=== PATIENT | female | born 1965 | race Two or more races ===

== ENCOUNTER 2020-09-13 13:02 | Outpatient (REF) | payer OTHER, SELFPAY ==
--- NOTE | ~2020-09-13 | MM_ITS ---
EXAMINATION: MM SCREENING DIGITAL MAMMOGRAPHY, BILATERAL CLINICAL INFORMATION: Screening. Asymptomatic. Unable to calculate TC score, limited information questionnaire. COMPARISON: Mammography: 04/06/2019, 03/11/2018, 02/16/2017 TECHNIQUE: Digital mammography is performed in craniocaudal and mediolateral oblique views along with computer-aided detection (CAD). Technically challenging exam requiring two soil technologist. Patient in wheelchair. Exam tailored to patient capabilities. According to staff, submitted images are best images possible. FINDINGS: There are scattered areas of fibroglandular density (ACR BI-RADS breast composition Category b). There is motion on the right MLO view. Parenchymal pattern is similar to prior studies. There is no visible developing density or mass or architectural abnormality. No abnormal calcifications. MM/MM screening mammo BI IMPRESSION: No significant changes from prior exams. Patient study limitations. ASSESSMENT: BI-RADS 2: Benign RECOMMENDATION: Routine annual mammography screening. This patient's information was entered into a reminder system with a target due date for their next mammogram.
== END 2020-09-13 13:03 | disposition home or self-care (01) ==
LOC: HO.MAMMO 13:02
PROVIDERS: PCP Internal Medicine; Visit Provider Internal Medicine
DX: Z12.31 Encounter for screening mammogram for malignant neoplasm of breast (principal)
CPT/HCPCS: 77067

== ENCOUNTER 2020-12-17 15:50 | Outpatient (REF) | payer OTHER, SELFPAY ==
--- NOTE | ~2020-12-17 | XR_ITS ---
EXAMINATION: XR FOOT, RIGHT CLINICAL INFORMATION: Unspecified injury right foot. COMPARISON: None TECHNIQUE: AP, lateral, and oblique views of the right foot. FINDINGS: There is a small avulsion fracture proximal end proximal phalanx first digit with intra-articular extension. There is mild soft tissue swelling. No additional fracture visualized. The ankle mortise and subtalar joints are normal. XR/XR foot RT 2V IMPRESSION: Small avulsion fracture proximal end proximal phalanx first digit with intraorbital extension and mild soft tissue swelling.
== END 2020-12-17 15:51 | disposition home or self-care (01) ==
LOC: HO.XRAY 15:50
PROVIDERS: PCP Internal Medicine; Visit Provider Physician Assistant
DX: S99.921A Unspecified injury of right foot, initial encounter (principal); W01.0XXA Fall on same level from slipping, tripping and stumbling without subsequent striking against object, initial encounter; Y93.9 Activity, unspecified; Y92.9 Unspecified place or not applicable; Y99.9 Unspecified external cause status
CPT/HCPCS: 73620

== ENCOUNTER 2020-12-25 06:54 | Outpatient (REF) | payer OTHER, SELFPAY ==
[2020-12-25 08:24] LABS: MANUAL DIFF FLAG NO
[2020-12-25 08:44] LABS: Creatinine Urine 83.84 mg/dL; Microalbum/Creatinine Ratio Ur 5.9 ug/mg cr
[2020-12-25 08:47] LABS: Basophils Percent Auto 0.5 % (0-2); Eosinophils Absolute Auto 0.2 X10*3/uL (0.0-0.4); Eosinophils Percent Auto 2.9 % (0-4); Hematocrit 36.6 % (37-47); Hemoglobin 11.8 g/dl (12.0-16.0); Imm Gran Abs Auto 0.01 X10*3/uL (0.00-0.03); Imm Gran Pct Auto 0.2 % (0.0-0.4); Lymphocytes Absolute Auto 1.5 X10*3/uL (1.2-4.9); Lymphocytes Percent Auto 27.2 % (20-40); Mean Corpuscular HGB Conc 32.2 g/dl (31.0-35.0); Mean Corpuscular Hemoglobin 28.5 pg (27.0-33.0); Mean Corpuscular Volume 88.4 fL (80-98); Mean Platelet Volume 8.9 fL (9.4-12.3); Monocytes Absolute Auto 0.3 X10*3/uL (0.1-1.2); Monocytes Percent Auto 5.7 % (2-11); Neutrophils Absolute Auto 3.6 X10*3/uL (2.0-8.3); Neutrophils Percent Auto 63.5 % (45-73); Platelet Count 350 X10*3/uL (160-400); Red Blood Count 4.14 X10*6/uL (4.20-5.50); White Blood Count 5.6 X10*3/uL (4.8-10.8)
[2020-12-25 09:00] LABS: Alanine Aminotransferase 14 U/L (0-31); Albumin Level 3.9 g/dL (3.5-5.0); Alkaline Phosphatase 57 U/L (39-117); Anion Gap 13 (12-20); Aspartate Amino Transferase 12 U/L (5-31); Bilirubin Total 0.5 mg/dL (0.0-1.0); Blood Urea Nitrogen 13 mg/dL (9-16); Calcium 8.8 mg/dL (8.4-10.2); Carbon Dioxide 26 mmol/L (22-29); Chloride 106 mmol/L (96-108); Cholesterol 152 mg/dL; Estimated Glomerular Filt Rate > 60; Glucose Random 134 mg/dL (60-115); HDL Cholesterol 48 mg/dL; LDL Cholesterol Calculated 86 mg/dl; Potassium 3.9 mmol/L (3.3-5.1); Sodium 141 mmol/L (135-145); Total Protein 6.6 g/dL (6.5-8.0); Triglycerides 94 mg/dL
[2020-12-25 09:06] LABS: Free T4 (Free Thyroxine) 0.99 ng/dL (0.71-1.85); Thyroid Stimulating Hormone 0.58 uIU/mL (0.32-4.0); Vitamin D 25-OH Total 38.6 ng/mL (>30)
[2020-12-25 09:33] LABS: Folate 19.2 ng/mL (> or = 4.0); Vitamin B12 1069 pg/mL (200-900)
[2020-12-25 10:29] LABS: Estimated Average Glucose 151 mg/dL; Hemoglobin A1c % 6.9 %
== END 2020-12-25 06:55 | disposition home or self-care (01) ==
LOC: HO.LAB 06:54
PROVIDERS: PCP Internal Medicine; Visit Provider Internal Medicine
DX: E11.65 Type 2 diabetes mellitus with hyperglycemia (principal); E78.00 Pure hypercholesterolemia, unspecified; I10 Essential (primary) hypertension
CPT/HCPCS: 36415; 80053; 80061; 82043; 82306; 82607; 82746; 83036; 84439; 84443; 85025

== ENCOUNTER → 2021-01-07 14:55 | Outpatient (BNVA) | payer OTHER, SELFPAY | PROVIDERS: PCP Internal Medicine; Visit Provider Physician Assistant | DX: S92.403A Displaced unspecified fracture of unspecified great toe, initial encounter for closed fracture (principal) | CPT/HCPCS: 99202 ==

== ENCOUNTER 2021-01-31 07:09 | Outpatient (REF) | payer OTHER, SELFPAY ==
[2021-01-31 07:42] LABS: MANUAL DIFF FLAG NO
[2021-01-31 07:44] LABS: Basophils Percent Auto 0.5 % (0-2); Eosinophils Absolute Auto 0.1 X10*3/uL (0.0-0.4); Eosinophils Percent Auto 2.1 % (0-4); Hematocrit 36.3 % (37-47); Hemoglobin 11.5 g/dl (12.0-16.0); Imm Gran Abs Auto 0.01 X10*3/uL (0.00-0.03); Imm Gran Pct Auto 0.2 % (0.0-0.4); Immature Retic Fraction 10.4 % (3.0-15.9); Lymphocytes Absolute Auto 1.5 X10*3/uL (1.2-4.9); Lymphocytes Percent Auto 26.4 % (20-40); Mean Corpuscular HGB Conc 31.7 g/dl (31.0-35.0); Mean Corpuscular Hemoglobin 28.3 pg (27.0-33.0); Mean Corpuscular Volume 89.2 fL (80-98); Mean Platelet Volume 9.4 fL (9.4-12.3); Monocytes Absolute Auto 0.3 X10*3/uL (0.1-1.2); Monocytes Percent Auto 5.2 % (2-11); Neutrophils Absolute Auto 3.8 X10*3/uL (2.0-8.3); Neutrophils Percent Auto 65.6 % (45-73); Platelet Count 303 X10*3/uL (160-400); Red Blood Count 4.07 X10*6/uL (4.20-5.50); Red Cell Distribution Width 14.3 % (11.0-16.0); Retic HGB Equivalent 32.2 pg (30.0-35.0); Reticulocyte Percent 1.3 % (0.5-1.8); Reticulocytes Absolute 0.051 X10*6/uL (0.026-0.095); White Blood Count 5.8 X10*3/uL (4.8-10.8)
[2021-01-31 08:09] LABS: Iron 65 mcg/dL (30-160); Percent Iron Saturation 24 % (15-50); Total Iron Binding Capacity 273 mcg/dL (228-428); Unsaturated Iron Binding 208 ug/dL
[2021-01-31 08:34] LABS: Ferritin 56 ng/mL (10-250)
== END 2021-01-31 07:10 | disposition home or self-care (01) ==
LOC: HO.LAB 07:09
PROVIDERS: PCP Internal Medicine; Visit Provider Internal Medicine
DX: D64.9 Anemia, unspecified (principal)
CPT/HCPCS: 36415; 82728; 83540; 85025; 85045

== ENCOUNTER 2021-02-06 07:34 | Outpatient (REF) | payer OTHER, SELFPAY ==
[2021-02-06 16:01] LABS: Creatinine Urine 28.18 mg/dL
== END 2021-02-06 07:35 | disposition home or self-care (01) ==
LOC: HO.LAB 07:34
PROVIDERS: PCP Internal Medicine; Visit Provider Internal Medicine
DX: E11.65 Type 2 diabetes mellitus with hyperglycemia (principal)
CPT/HCPCS: 87086

== ENCOUNTER → 2021-06-10 08:50 | Outpatient (BNVA) | payer OTHER, SELFPAY | PROVIDERS: PCP Internal Medicine; Visit Provider Advanced Practice Midwife ==

== ENCOUNTER 2021-09-16 08:03 | Outpatient (REF) | payer OTHER, SELFPAY ==
--- NOTE | ~2021-09-16 | MM_ITS ---
EXAMINATION: MM SCREENING DIGITAL BREAST TOMOSYNTHESIS, BILATERAL CLINICAL INFORMATION: Screening. Asymptomatic. COMPARISON: Mammography: 09/13/2020, 04/06/2019, 03/11/2018 TECHNIQUE: Digital breast tomosynthesis is performed in both the craniocaudal and mediolateral oblique views along with computer-aided detection (CAD). Synthesized 2D images are generated from the tomosynthesis. Additional right MLO view is provided. Exam is technically challenging requiring 2 mammography technologists for positioning. Patient in wheelchair. Exam tailored to patient capabilities. FINDINGS: There are scattered areas of fibroglandular density (ACR BI-RADS breast composition Category b). There are no significant masses, abnormal calcifications, or other abnormalities. There are no significant changes from prior studies. MM/MM tomosynthesis screening BI IMPRESSION: No significant changes from prior studies. Patient study limitations. ASSESSMENT: BI-RADS 2: Benign RECOMMENDATION: Routine annual mammography screening. This patient's information was entered into a reminder system with a target due date for their next mammogram.
== END 2021-09-16 08:04 | disposition home or self-care (01) ==
LOC: HO.MAMMO 08:03
PROVIDERS: PCP Internal Medicine; Visit Provider Internal Medicine
DX: Z12.31 Encounter for screening mammogram for malignant neoplasm of breast (principal)
CPT/HCPCS: 77063; 77067

== ENCOUNTER 2022-01-24 07:16 | Outpatient (REF) | payer OTHER, SELFPAY ==
[2022-01-24 07:26] LABS: MANUAL DIFF FLAG NO
[2022-01-24 08:03] LABS: Basophils Absolute Auto 0.1 X10*3/uL (0.0-0.2); Basophils Percent Auto 0.8 % (0-2); Eosinophils Absolute Auto 0.1 X10*3/uL (0.0-0.4); Eosinophils Percent Auto 1.9 % (0-4); Hematocrit 37.5 % (37.0-47.0); Hemoglobin 12.1 g/dl (12.0-16.0); Imm Gran Abs Auto 0.01 X10*3/uL (0.00-0.03); Imm Gran Pct Auto 0.2 % (0.0-0.4); Immature Retic Fraction 10.6 % (3.0-15.9); Lymphocytes Absolute Auto 1.8 X10*3/uL (1.2-4.9); Lymphocytes Percent Auto 28.2 % (20-40); Mean Corpuscular HGB Conc 32.3 g/dl (31.0-35.0); Mean Corpuscular Hemoglobin 28.5 pg (27.0-33.0); Mean Corpuscular Volume 88.4 fL (80.0-98.0); Monocytes Absolute Auto 0.4 X10*3/uL (0.1-1.2); Monocytes Percent Auto 6.4 % (2-11); Neutrophils Percent Auto 62.5 % (45-73); Platelet Count 321 X10*3/uL (160-400); Red Blood Count 4.24 X10*6/uL (4.20-5.50); Retic HGB Equivalent 32.8 pg (30.0-35.0); White Blood Count 6.4 X10*3/uL (4.8-10.8)
[2022-01-24 08:05] LABS: Estimated Average Glucose 137 mg/dL; Hemoglobin A1c % 6.4 %
[2022-01-24 08:26] LABS: Alanine Aminotransferase 10 U/L (0-31); Albumin Level 4.2 g/dL (3.5-5.0); Alkaline Phosphatase 65 U/L (39-117); Anion Gap 12 (12-20); Aspartate Amino Transferase 11 U/L (5-31); Bilirubin Total 0.4 mg/dL (0.0-1.0); Blood Urea Nitrogen 16 mg/dL (9-16); Calcium 9.1 mg/dL (8.4-10.2); Carbon Dioxide 26 mmol/L (22-29); Chloride 105 mmol/L (96-108); Cholesterol 172 mg/dL; Estimated Glomerular Filt Rate > 60; Glucose Random 130 mg/dL (60-115); HDL Cholesterol 51 mg/dL; Iron 64 mcg/dL (30-160); LDL Cholesterol Calculated 107 mg/dl; Percent Iron Saturation 23 % (15-50); Potassium 4.2 mmol/L (3.3-5.1); Sodium 139 mmol/L (135-145); Total Iron Binding Capacity 276 mcg/dL (228-428); Triglycerides 71 mg/dL; Unsaturated Iron Binding 212 ug/dL
[2022-01-24 08:48] LABS: Ferritin 63 ng/mL (10-250); Free T4 (Free Thyroxine) 0.96 ng/dL (0.71-1.85); Thyroid Stimulating Hormone 0.46 uIU/mL (0.32-4.0); Vitamin D 25-OH Total 42.3 ng/mL (>30)
[2022-01-24 09:06] LABS: Folate > 20.0 ng/mL (> or = 4.0); Vitamin B12 952 pg/mL (200-900)
[2022-01-24 09:39] LABS: Creatinine Urine 137.81 mg/dL; Microalbum/Creatinine Ratio Ur 4.3 ug/mg cr
== END 2022-01-24 07:17 | disposition home or self-care (01) ==
LOC: HO.LAB 07:16
PROVIDERS: PCP Internal Medicine; Visit Provider Internal Medicine
DX: E78.00 Pure hypercholesterolemia, unspecified (principal); I10 Essential (primary) hypertension; D64.9 Anemia, unspecified; E11.65 Type 2 diabetes mellitus with hyperglycemia
CPT/HCPCS: 36415; 80053; 80061; 82043; 82306; 82607; 82728; 82746; 83036; 83540; 84439; 84443; 85025; 85045

== ENCOUNTER 2022-09-18 10:34 | Outpatient (REF) | payer OTHER, SELFPAY ==
--- NOTE | ~2022-09-18 | MM_ITS ---
EXAMINATION: MM SCREENING DIGITAL BREAST TOMOSYNTHESIS, BILATERAL CLINICAL INFORMATION: Screening. Asymptomatic. COMPARISON: Mammography: 09/16/2021, 09/13/2020, 04/06/2019 TECHNIQUE: Digital breast tomosynthesis is performed in both the craniocaudal and mediolateral oblique views along with computer-aided detection (CAD). Synthesized 2D images are generated from the tomosynthesis. Additional left MLO view obtained. Technologist notes technically challenging exam, patient in wheelchair. 2 technologists for optimizing positioning and tailoring to patient capabilities. FINDINGS: There are scattered areas of fibroglandular density (ACR BI-RADS breast composition Category b). There are technical challenges in positioning, particularly on the left similar to prior exam. The submitted images show no significant masses, abnormal calcifications, or other abnormalities. No developing density or architectural abnormality or significant changes. MM/MM tomosynthesis screening BI IMPRESSION: -No mammographic evidence of malignancy. -Patient study limitations. ASSESSMENT: BI-RADS 2: Benign RECOMMENDATION: Routine annual mammography screening. This patient's information was entered into a reminder system with a target due date for their next mammogram.
== END 2022-09-18 10:35 | disposition home or self-care (01) ==
LOC: HO.MAMMO 10:34
PROVIDERS: PCP Internal Medicine; Visit Provider Internal Medicine
DX: Z12.31 Encounter for screening mammogram for malignant neoplasm of breast (principal)
CPT/HCPCS: 77063; 77067

== ENCOUNTER 2022-09-29 07:06 | Outpatient (REF) | payer OTHER, SELFPAY ==
[2022-09-29 07:27] LABS: MANUAL DIFF FLAG NO
[2022-09-29 07:47] LABS: Basophils Percent Auto 0.7 % (0-2); Eosinophils Absolute Auto 0.1 X10*3/uL (0.0-0.4); Eosinophils Percent Auto 1.9 % (0-4); Hematocrit 37.8 % (37.0-47.0); Imm Gran Abs Auto 0.01 X10*3/uL (0.00-0.03); Imm Gran Pct Auto 0.2 % (0.0-0.4); Lymphocytes Absolute Auto 1.6 X10*3/uL (1.2-4.9); Lymphocytes Percent Auto 28.5 % (20-40); Mean Corpuscular HGB Conc 31.7 g/dl (31.0-35.0); Mean Corpuscular Volume 88.1 fL (80.0-98.0); Mean Platelet Volume 8.8 fL (9.4-12.3); Monocytes Absolute Auto 0.3 X10*3/uL (0.1-1.2); Monocytes Percent Auto 5.1 % (2-11); Neutrophils Absolute Auto 3.6 x10*3/uL (2.0-8.3); Neutrophils Percent Auto 63.6 % (45-73); Platelet Count 322 X10*3/uL (160-400); Red Blood Count 4.29 X10*6/uL (4.20-5.50); Red Cell Distribution Width 13.5 % (11.0-16.0); White Blood Count 5.7 X10*3/uL (4.8-10.8)
[2022-09-29 07:56] LABS: Estimated Average Glucose 140 mg/dL; Hemoglobin A1C 150.9614 umol/L; Hemoglobin A1c % 6.5 %
[2022-09-29 08:13] LABS: Creatinine Urine 95.65 mg/dL
[2022-09-29 08:30] LABS: Alanine Aminotransferase 11 U/L (0-31); Alkaline Phosphatase 60 U/L (39-117); Anion Gap 12 (12-20); Aspartate Amino Transferase 12 U/L (5-31); Bilirubin Total 0.4 mg/dL (0.0-1.0); Blood Urea Nitrogen 14 mg/dL (9-16); Calcium 9.1 mg/dL (8.4-10.2); Carbon Dioxide 29 mmol/L (22-29); Chloride 106 mmol/L (96-108); Cholesterol 170 mg/dL; Estimated Glomerular Filt Rate > 60; Glucose Random 122 mg/dL (60-115); HDL Cholesterol 47 mg/dL; LDL Cholesterol Calculated 108 mg/dl; Potassium 4.1 mmol/L (3.3-5.1); Sodium 143 mmol/L (135-145); Total Protein 6.7 g/dL (6.5-8.0); Triglycerides 79 mg/dL
[2022-09-29 08:50] LABS: Folate 16.7 ng/mL (> or = 4.0); Free T4 (Free Thyroxine) 0.99 ng/dL (0.71-1.85); Thyroid Stimulating Hormone 0.92 uIU/mL (0.32-4.0); Vitamin B12 793 pg/mL (200-900); Vitamin D 25-OH Total 46.3 ng/mL (>30)
== END 2022-09-29 07:07 | disposition home or self-care (01) ==
LOC: HO.LAB 07:06
PROVIDERS: PCP Internal Medicine; Visit Provider Internal Medicine
DX: E11.65 Type 2 diabetes mellitus with hyperglycemia (principal); E78.00 Pure hypercholesterolemia, unspecified; E55.9 Vitamin D deficiency, unspecified; S92.403A Displaced unspecified fracture of unspecified great toe, initial encounter for closed fracture; X58.XXXA Exposure to other specified factors, initial encounter; Y93.9 Activity, unspecified; Y92.9 Unspecified place or not applicable; Y99.9 Unspecified external cause status
CPT/HCPCS: 36415; 80053; 80061; 82306; 82607; 82746; 83036; 84439; 84443; 85025

== ENCOUNTER 2023-02-05 07:24 | Outpatient (REF) | payer OTHER, SELFPAY | END 2023-02-05 07:25 | disposition home or self-care (01) | LOC: HO.LAB 07:24 | PROVIDERS: PCP Internal Medicine; Visit Provider Internal Medicine | DX: E78.00 Pure hypercholesterolemia, unspecified (principal); E11.65 Type 2 diabetes mellitus with hyperglycemia | CPT/HCPCS: 36415; 80053; 80061; 83036 ==

== ENCOUNTER 2023-02-10 11:00 | Outpatient (AMB) | payer OTHER, SELFPAY ==
[2023-02-10 11:02] VITALS: BP 110/68; PULSE 98; O2SAT 98; BMI 29.8
--- NOTE | 2023-02-10 11:02 | MHC.PC.OV ---
Vital Signs 02/10/23 11:02 Height 4 ft 3 in Weight 110 lb 3.698 oz BMI 29.8 BP 110/68 Blood Pressure Location Lt brachial Position Sitting Pulse 98 Pulse Source Pulse Oximeter Temp Source Skin Pulse Oximetry (%) 98 Oxygen Delivery Method Room Air Intake Visit Reasons: Hypercholesterolemia, diabetes mellitus Grounds Manager Required: No Allergies No Known Allergies Allergy (Verified 02/10/23 11:11) Medication List - Last Reconciled 02/10/23 by JACKIE Zamudio amoxicillin 2,000 mg PO 1 hour before procedure; blood sugar diagnostic (FreeStyle Lite Strips) As directed TID for blood glucose testing blood-glucose meter (FreeStyle Lite Meter kit) As directed cholecalciferol (vitamin D3) 25 mcg PO DAILY compress.stocking,knee,reg,med As directed 20-30 mm HG cyanocobalamin (vitamin B-12) 1,000 mcg PO DAILY fluconazole (Diflucan) 150 mg PO ONCE 1 day folic acid 1 mg PO DAILY ketoconazole 2% 1 appl topical BID lancets (FreeStyle Lancets) 28 gauge topical TID 90 days lisinopril 10 mg PO DAILY metformin 500 mg PO DAILY miconazole nitrate 2% (Zeasorb AF) 1 appl topical BID simvastatin 40 mg PO DAILY Tobacco use date assessed: 02/10/23 HPI Hypercholesterolemia, diabetes mellitus HPI Details Patient is a 57-year-old female presents today to follow-up on her chronic conditions. Patient of Dr. Salazar. Medical history significant for diabetes type 2, hypertension, hypercholesterolemia, cerebral palsy. Patient reports eye exam couple months ago. She reports blood sugar this morning 133. Patient denies concerns at this visit. She is compliant with medications. Patient denies shortness of breath or chest pain. Recent blood work results reviewed with the patient. [facility] Medical History Annual physical exam Avulsion fracture of metatarsal bone of left foot with routine healing Cerebral palsy Colon cancer screening Encounter for annual routine gynecological examination Hypercholesterolemia Hypertension Impacted cerumen of both ears Injury of right great toe Peripheral vascular disease Rosacea Type 2 diabetes mellitus with hyperglycemia Vitamin D deficiency Surgical History History of brain shunt Family History Father Medical history unknown Mother Brain cancer Diabetes Hypertension Paternal Uncle Cancer Social History Housing: House Alcohol intake: never Patient Tobacco Use Status: Never used Tobacco e-Cigarette/Vaping Use: Never Used Second Hand Smoke Exposure: No Current occupational status: disabled Cognitive needs: No Hearing needs: No Vision needs: No Questionnaire Thrive Questionnaire Date Thrive assessed: 10/24/22 AUDIT C Alcohol Use Questionnaire (AUDIT-C) 1. How often do you have a drink containing alcohol?: Never 3. How often do you have six or more drinks on one occasion?: Never Total Score: 0 Score Reviewed/Action Taken: No MATEO-7 AMB Questionnaire MATEO-7 Date MATEO - 7 assessed: 10/24/22 Source: Developed by Drs. Jori Elias, Juani Noriega, Jagdish Cardenas and colleagues, with an educational rand from [employer]. Review of Systems Const Denies body aches, Denies chills, Denies fever(s) and Denies headache(s) Eyes Denies change in vision ENT Denies dizziness, Denies otalgia, Denies headache(s), Denies nasal discharge, Denies sinus pain and Denies sore throat Card Denies chest pain, Denies edema, Denies lightheadedness and Denies dyspnea Resp Denies cough and Denies dyspnea GI Denies constipation, Denies diarrhea, Denies nausea and Denies vomiting Denies dysuria Musc Denies myalgias Skin/Breast Denies rash Neuro Denies dizziness and Denies headache(s) Physical exam (Primary Care) Vital Signs: Last Vital Signs Pulse 98 02/10/23 11:02 BP 110/68 02/10/23 11:02 Pulse Ox 98 02/10/23 11:02 Oxygen Delivery Method Room Air 02/10/23 11:02 BMI result Body Mass Index 29.8 Tobacco/Smoking Status: Tobacco use Status Tobacco use date assessed 02/10/23 02/10/23 11:03 Patient Tobacco Use Status Never used Tobacco 02/10/23 11:03 e-Cigarette/Vaping Use Never Used 02/10/23 11:03 Thrive Assessment: Date of Thrive Assessment Date Thrive assessed 10/24/22 02/10/23 11:03 Const General: cooperative and no acute distress Orientation/consciousness: patient oriented x3 HENMT Head: Yes normocephalic and Yes atraumatic Mouth: oropharynx normal and moist mucous membranes Throat: Yes posterior oropharynx normal Eyes General: appearance normal, both eyes and all related structures Pupils: Equal, round and reactive pupils present EOM: EOMs intact bilaterally Neck Neck: Yes normal visual inspection and Yes full ROM Resp Effort & Inspection: normal respiratory effort and able to speak in complete sentences Auscultation: clear to auscultation bilaterally, no crackles, no rales, no rhonchi and no wheezes Cardio Rate: regular rate Rhythm: regular rhythm Heart sounds: S1 normal heart sound present and S2 normal heart sound present GI Auscultation: normal bowel sounds Skin General skin exam: no rashes or lesions noted Neuro General: patient oriented x3 Cranial nerves: Yes Equal, round and reactive pupils present Extrem Other: Left arm contracture - has cerebral palsy General: No edema Assessment and Plan Assessment & Plan (1) Hypercholesterolemia: Code(s): E78.00 - Pure hypercholesterolemia, unspecified Plan: LDL 82 01/2023 Continue simvastatin Low-cholesterol diet (2) Hypertension: Code(s): I10 - Essential (primary) hypertension Qualifiers: Hypertension type: essential hypertension Qualified Code(s): I10 - Essential (primary) hypertension Plan: Goal BP equal or less than 140/90 Continue lisinopril Low-sodium diet (3) Type 2 diabetes mellitus with hyperglycemia: Comment: Dr. Romero Code(s): E11.65 - Type 2 diabetes mellitus with hyperglycemia Qualifiers: Diabetes mellitus roving technician insulin use: without roving technician use Qualified Code(s): E11.65 - Type 2 diabetes mellitus with hyperglycemia Plan: A1c 6.3 01/2023 Continue metformin Low-carbohydrate diet Plan Keep appointment with PCP as scheduled or follow-up sooner as needed Coding Level of Care Code Est Pt Level 4 (31038) Diagnoses Hypercholesterolemia E78.00 Hypertension I10 Hypertension type: essential hypertension Type 2 diabetes mellitus with hyperglycemia E11.65 Diabetes mellitus roving technician insulin use: without roving technician use
== END 2023-02-10 11:36 | disposition home or self-care (01) ==
PROVIDERS: PCP Internal Medicine; Visit Provider Nurse Practitioner Family
DX: E78.00 Pure hypercholesterolemia, unspecified (principal); I10 Essential (primary) hypertension; E11.65 Type 2 diabetes mellitus with hyperglycemia
CPT/HCPCS: 99214

== ENCOUNTER 2023-05-22 15:15 | Outpatient (AMB) | payer OTHER, SELFPAY ==
--- NOTE | 2023-05-22 15:19 | A.OFFPC_ITS ---
Vital Signs 05/22/23 15:20 Height 4 ft 3 in Weight 105 lb 13.15 oz BMI 28.6 BP 118/72 Blood Pressure Location Lt brachial Position Sitting Pulse 80 Pulse Source Pulse Oximeter Pulse Oximetry (%) 100 Oxygen Delivery Method Room Air Intake Visit Reasons: Rash under breast area Intake Note: pt states [facility] rash under breast area and back Pinion Polisher Required: No Allergies No Known Allergies Allergy (Verified 05/22/23 15:29) Medication List - Last Reconciled 05/22/23 by JACKIE Zamudio amoxicillin 2,000 mg PO 1 hour before procedure; blood sugar diagnostic (FreeStyle Lite Strips) As directed TID for blood glucose testing blood-glucose meter (FreeStyle Lite Meter kit) As directed cholecalciferol (vitamin D3) 25 mcg PO DAILY compress.stocking,knee,reg,med As directed 20-30 mm HG cyanocobalamin (vitamin B-12) 1,000 mcg PO DAILY fluconazole (Diflucan) 150 mg PO ONCE 1 day folic acid 1 mg PO DAILY ketoconazole 2% 1 appl topical BID lancets (FreeStyle Lancets) 28 gauge topical TID 90 days lisinopril 10 mg PO DAILY metformin 500 mg PO DAILY miconazole nitrate 2% (Zeasorb AF) 1 appl topical BID simvastatin 40 mg PO DAILY Tobacco use date assessed: 05/22/23 Dental Screening Dental Screen Date: 05/22/23 Did you have a dental visit in the last 12 months?: Yes Did you have a dental problem in the last 6 months where you did not have access to dental care?: No Was dental information given to patient?: Patient has dentist HPI Rash under breast area HPI Details Patient is a 57-year-old female who presents today for an office visit due to rash under her breasts and between buttocks for long time which is intermittent. Patient of Dr. Salazar. Medical history significant for diabetes type 2, hypercholesterolemia, cerebral palsy among others. Patient reports that rash is itchy intermittently. She has been using ketoconazole cream with no improvement. Also she has been using nystatin powder which was given by family, they have been mixing nystatin powder with ketoconazole cream with no much improvement- would like prescription for nystatin powder. [facility] Medical History Impacted cerumen of both ears Annual physical exam Encounter for annual routine gynecological examination Colon cancer screening Avulsion fracture of metatarsal bone of left foot with routine healing Injury of right great toe Cerebral palsy Hypercholesterolemia Rosacea Hypertension Vitamin D deficiency Peripheral vascular disease Type 2 diabetes mellitus with hyperglycemia Surgical History History of brain shunt Family History Father Medical history unknown Mother Brain cancer Diabetes Hypertension Paternal Uncle Cancer Social History Housing: House Alcohol intake: never Patient Tobacco Use Status: Never used Tobacco e-Cigarette/Vaping Use: Never Used Second Hand Smoke Exposure: No Current occupational status: disabled Cognitive needs: No Hearing needs: No Vision needs: No Questionnaire Thrive Questionnaire Date Thrive assessed: 10/24/22 AUDIT C Alcohol Use Questionnaire (AUDIT-C) 1. How often do you have a drink containing alcohol?: Never 3. How often do you have six or more drinks on one occasion?: Never Total Score: 0 Score Reviewed/Action Taken: No MATEO-7 AMB Questionnaire MATEO-7 Date MATEO - 7 assessed: 10/24/22 Source: Developed by Drs. Jori Elias, Juani Noriega, Jagdish Cardenas and colleagues, with an educational rand from [employer]. Review of Systems Const Denies body aches, Denies chills, Denies fever(s) and Denies headache(s) ENT Denies dizziness, Denies otalgia, Denies headache(s), Denies nasal discharge, Denies sinus pain and Denies sore throat Card Denies chest pain, Denies edema, Denies lightheadedness and Denies dyspnea Resp Denies cough, Denies dyspnea and Denies wheezing GI Denies abdominal pain and Denies vomiting Denies dysuria Musc Denies myalgias Skin/Breast Reports rash Neuro Denies dizziness and Denies headache(s) Aller/Immun Denies wheezing Physical exam (Primary Care) Vital Signs: Last Vital Signs Pulse 80 05/22/23 15:20 BP 118/72 05/22/23 15:20 Pulse Ox 100 05/22/23 15:20 Oxygen Delivery Method Room Air 10/20/23 15:20 BMI result Body Mass Index 28.6 Tobacco/Smoking Status: Tobacco use Status Tobacco use date assessed 05/22/23 05/22/23 15:21 Patient Tobacco Use Status Never used Tobacco 05/22/23 15:20 e-Cigarette/Vaping Use Never Used 05/22/23 15:20 Thrive Assessment: Date of Thrive Assessment Date Thrive assessed 10/24/22 05/22/23 15:20 Const General: cooperative and no acute distress Orientation/consciousness: patient oriented x3 HENMT Head: Yes normocephalic and Yes atraumatic Throat: Yes posterior oropharynx normal Eyes General: appearance normal, both eyes and all related structures Neck Neck: Yes normal visual inspection and Yes full ROM Resp Effort & Inspection: normal respiratory effort and able to speak in complete sentences Auscultation: clear to auscultation bilaterally, no crackles, no rales, no rhonchi and no wheezes Cardio Rate: regular rate Rhythm: regular rhythm Heart sounds: S1 normal heart sound present and S2 normal heart sound present GI Auscultation: normal bowel sounds Skin Other: Mild erythema and moisture noted under bilateral breasts, no open areas Bilateral medial buttocks with mild erythema, no open areas Neuro General: patient oriented x3 Extrem General: Yes full ROM and No edema Assessment and Plan Assessment & Plan (1) Rash: Code(s): R21 - Rash and other nonspecific skin eruption Plan: Mild erythema and moisture noted under bilateral breasts, no open areas Bilateral medial buttocks with mild erythema, no open areas Suspect fungal rash Will treat with nystatin powder t.i.d. p.r.n., do not use ketoconazole cream, keep areas clean and dry Notify office if no improvement in couple weeks Patient agreed with the plan Medications: New nystatin (Nystop) 1 appl topical TID PRN 60 grams 1RF rash R21 - Rash and other nonspecific skin eruption Discontinued miconazole nitrate 2% (Zeasorb AF) Discontinued Reason: Doctor's Order 1 appl topical BID 85 grams 2RF B35.6 - Tinea cruris fluconazole (Diflucan) Discontinued Reason: Doctor's Order 150 mg PO ONCE 1 day 1 tab 0RF N89.8 - Other specified noninflammatory disorders of vagina Coding Level of Care Code Est Pt Level 3 (92266) Diagnoses Rash R21
[2023-05-22 15:20] VITALS: BP 118/72; PULSE 80; O2SAT 100; BMI 28.6
== END 2023-05-22 15:58 | disposition home or self-care (01) ==
PROVIDERS: PCP Internal Medicine; Visit Provider Nurse Practitioner Family
DX: R21 Rash and other nonspecific skin eruption (principal)
CPT/HCPCS: 99213

== ENCOUNTER 2023-07-24 08:44 | Outpatient (AMB) | payer OTHER, SELFPAY ==
--- NOTE | 2023-07-24 08:50 | MHC.PC.OV ---
Vital Signs 07/24/23 08:52 Height 4 ft 3 in Weight 107 lb 12.897 oz BMI 29.1 BP 112/68 Blood Pressure Location Lt brachial Position Sitting Pulse 95 Pulse Source Pulse Oximeter Pulse Oximetry (%) 99 Oxygen Delivery Method Room Air Intake Visit Reasons: PE Dental Professional Required: No Allergies No Known Allergies Allergy (Verified 05/22/23 15:29) Medication List - Last Reconciled 07/24/23 by Uri Salazar MD amoxicillin 2,000 mg PO 1 hour before procedure; blood sugar diagnostic (FreeStyle Lite Strips) As directed TID for blood glucose testing blood-glucose meter (FreeStyle Lite Meter kit) As directed cholecalciferol (vitamin D3) 25 mcg PO DAILY compress.stocking,knee,reg,med As directed 20-30 mm HG cyanocobalamin (vitamin B-12) 1,000 mcg PO DAILY folic acid 1 mg PO DAILY ketoconazole 2% 1 appl topical BID lancets (FreeStyle Lancets) 28 gauge topical TID 90 days lisinopril 10 mg PO DAILY metformin 500 mg PO DAILY nystatin (Nystop) 1 appl topical TID PRN simvastatin 40 mg PO DAILY Tobacco use date assessed: 05/22/23 Dental Screening Dental Screen Date: 07/24/23 Did you have a dental visit in the last 12 months?: Yes Did you have a dental problem in the last 6 months where you did not have access to dental care?: No Was dental information given to patient?: Patient has dentist HPI PE HPI Details 58-year-old female with cerebral palsy controlled diabetes mellitus hypertension hypercholesterolemia coming in for physical exam last seen in October 2022. Patient's mammogram is up-to-date Cologuard negative October 2022. Review of the notes was seen in May for tinea for poor is under the breast between the buttocks [facility] Medical History (Updated 07/24/23 @ 18:36 by Uri Salazar MD) Impacted cerumen of both ears Annual physical exam Encounter for annual routine gynecological examination Colon cancer screening Avulsion fracture of metatarsal bone of left foot with routine healing Injury of right great toe Cerebral palsy Hypercholesterolemia Rosacea Hypertension Vitamin D deficiency Peripheral vascular disease Type 2 diabetes mellitus with hyperglycemia Surgical History History of brain shunt Family History Father Medical history unknown Mother Brain cancer Diabetes Hypertension Paternal Uncle Cancer Social History Housing: House Alcohol intake: never Patient Tobacco Use Status: Never used Tobacco e-Cigarette/Vaping Use: Never Used Second Hand Smoke Exposure: No Current occupational status: disabled Cognitive needs: No Hearing needs: No Vision needs: No Questionnaire PHQ-9 Over the last 2 weeks, how often have you been bothered by any of the following problems? 1. Little interest or pleasure in doing things: not at all 2. Feeling down, depressed, or hopeless: not at all 3. Trouble falling or staying asleep, or sleeping too much: not at all 4. Feeling tired or having little energy: not at all 5. Poor appetite or overeating: not at all 6. Feeling bad about yourself - or that you are a failure or have let yourself or your family down: not at all 7. Trouble concentrating on things, such as reading the newspaper or watching television: not at all 8. Moving or speaking so slowly that other people could have noticed. Or the opposite - being so fidgety or restless that you have been moving around a lot more than usual: not at all 9. Thoughts that you would be better off or of hurting yourself in some way: not at all Total score: 0 Depression Screening Interpretation: Negative Depression Screening Done: Yes Source: Developed by Drs. Jori Elias, Juani Noriega, Jagdish Cardenas and colleagues, with an educational rand from [employer] Thrive Questionnaire Date Thrive assessed: 10/24/22 AUDIT C Alcohol Use Questionnaire (AUDIT-C) 1. How often do you have a drink containing alcohol?: Never 3. How often do you have six or more drinks on one occasion?: Never Total Score: 0 Score Reviewed/Action Taken: No MATEO-7 AMB Questionnaire MATEO-7 Date MATEO - 7 assessed: 07/24/23 Feeling nervous, anxious, or on edge: 0 = Not at all Not being able to stop or control worryin = Not at all Worrying too much about different things: 0 = Not at all Trouble relaxin = Not at all Being so restless that it is hard to sit still: 0 = Not at all Becoming easily annoyed or irritable: 0 = Not at all Feeling afraid as if something awful might happen: 0 = Not at all Total MATEO-7 score (0-4 normal; 5-9 mild; 10-14 moderate; 15-21 severe): 0 Source: Developed by Drs. Jori Elias, Juani Noriega, Jagdish Cardenas and colleagues, with an educational rand from [employer] Review of Systems Const Reports as per HPI Physical exam (Primary Care) Vital Signs: Last Vital Signs Pulse 95 07/24/23 08:52 BP 112/68 07/24/23 08:52 Pulse Ox 99 07/24/23 08:52 Oxygen Delivery Method Room Air 07/24/23 08:52 BMI result Body Mass Index 29.1 Tobacco/Smoking Status: Tobacco use Status Tobacco use date assessed 05/22/23 07/24/23 08:50 Patient Tobacco Use Status Never used Tobacco 07/24/23 08:50 e-Cigarette/Vaping Use Never Used 07/24/23 08:50 PHQ-9: PHQ-9 Score PHQ-9: Total score 0 07/24/23 09:21 Depression Screening Interpretation: Negative Thrive Assessment: Date of Thrive Assessment Date Thrive assessed 10/24/22 07/24/23 08:50 Const General: alert and awake HENMT Other: Bilateral impacted cerumen Head: Yes normocephalic Ears: external ears normal Face and sinus: Yes normal facial exam Mouth: moist mucous membranes Throat: Yes tonsils normal Eyes Conjunctivae: conjunctivae normal Pupils: Equal, round and reactive pupils present and Pupil accommodation reflex normal Direct Ophthalmoscopy: normal light reflex Neck Neck: No lymphadenopathy Thyroid: Thyroid normal Chest Chest palpation & inspection: normal inspection of the chest Resp Effort & Inspection: normal respiratory effort and no audible wheezes Auscultation: clear to auscultation bilaterally, no crackles, no wheezes and lung sounds not diminished Cardio Rate: regular rate Rhythm: regular rhythm Peripheral pulses: radial pulses present and dorsalis pedis present GI Palpation (GI): no masses Auscultation: normal bowel sounds and normoactive bowel sounds Rectal Exam - Female: deferred Skin General skin exam: no rashes or lesions noted Rashes: no rashes Neuro Other: Left sided weakness left arm has the contracture but can move the fingers slowly 3/5 left foot cannot dorsiflex Cranial nerves: Yes Equal, round and reactive pupils present and Yes Midline tongue present Cognition (Neuro): normal cognition Deep tendon reflexes (DTR's): Right brachioradialis reflex intensity grade: 2+, Left brachioradialis reflex intensity grade: 2+, Right patellar reflex intensity grade: 2+ and Left patellar reflex intensity grade: 2+ Extrem Other: Patient wear support stockings Office Procedures Cerumen Removal From which ear canal was the cerumen removed: bilateral Removal: otoscope w/curette and cerumen loop/spoon Notes: patient tolerated procedure well, no complications and ear canal clear [id number] Wax Removal by Spoon/Curette Results AMB Hemoglobin A1c AMB Hemoglobin A1c 6.9 % Last Edit by BRITNI Gomez on 07/24/23 09:02 Results Reviewed Results Reviewed: Laboratory Last Values Hgb A1c (Clinic) 6.9 % (4.0-6.0) H 07/24/23 09:00 Assessment and Plan Assessment & Plan (1) Annual physical exam: Code(s): Z00.00 - Encounter for general adult medical examination without abnormal findings (2) Type 2 diabetes mellitus with hyperglycemia: Comment: Dr. Romero Code(s): E11.65 - Type 2 diabetes mellitus with hyperglycemia Qualifiers: Diabetes mellitus longterm insulin use: without rat exterminator use Qualified Code(s): E11.65 - Type 2 diabetes mellitus with hyperglycemia Plan: Decrease the amount of carbohydrate intake, pasta, bread, rice and potatoes are all sugar and that is aside from all the sweet stuff, remember that fruits are good but they are Sweet also. Hemoglobin A1c goal of less than 6.5 patient is on metformin 500 mg once a day (3) Hypertension: Code(s): I10 - Essential (primary) hypertension Qualifiers: Hypertension type: essential hypertension Qualified Code(s): I10 - Essential (primary) hypertension Plan: Continue with blood pressure medication. Decrease salt intake and exercise on lisinopril 10 mg once a day (4) Hypercholesterolemia: Code(s): E78.00 - Pure hypercholesterolemia, unspecified Plan: Avoid fried foods, chicken skin, eggs, butter margarine, pastries and meat. Be it pork or beef they have a lot of cholesterol LDL goal of less than 100 and triglyceride of less than 150 taking simvastatin 40 mg once a day (5) Impacted cerumen of both ears: Code(s): H61.23 - Impacted cerumen, bilateral Plan: TM intact bilateral after scoop no irrigation Orders: Orders AMB Hemoglobin A1c Today E11.65 - Type 2 diabetes mellitus with hyperglycemia Comprehensive Met. Panel 3 Months E11.65 - Type 2 diabetes mellitus with hyperglycemia Free T4 (Free Thyroxine) 3 Months E11.65 - Type 2 diabetes mellitus with hyperglycemia Thyroid Stimulating Hormone 3 Months E11.65 - Type 2 diabetes mellitus with hyperglycemia Microalbumin, Random (w Creat) 3 Months E11.65 - Type 2 diabetes mellitus with hyperglycemia Complete Blood Count Auto Diff 3 Months E11.65 - Type 2 diabetes mellitus with hyperglycemia Creatinine Urine 3 Months E11.65 - Type 2 diabetes mellitus with hyperglycemia Vitamin B12 and Folate 3 Months E11.65 - Type 2 diabetes mellitus with hyperglycemia Lipid Panel 3 Months E11.65 - Type 2 diabetes mellitus with hyperglycemia, E78.00 - Pure hypercholesterolemia, unspecified Vitamin D 25-OH Total 3 Months E11.65 - Type 2 diabetes mellitus with hyperglycemia Coding Level of Care Code Est Pt Level 3 (56298) Est Pt Prev Care 40-64y(91672) Diagnoses Annual physical exam Z00.00 Type 2 diabetes mellitus with hyperglycemia, without long-term current use of insulin E11.65 Diabetes mellitus rat exterminator insulin use: without rat exterminator use Essential hypertension I10 Hypertension type: essential hypertension Hypercholesterolemia E78.00 Impacted cerumen of both ears H61.23 CPT Codes Office Procedure - CPT: 38157-Qxg Wax Removal by Spoon/Curette ([id number])
[2023-07-24 08:52] VITALS: BP 112/68; PULSE 95; O2SAT 99; BMI 29.1
== END 2023-07-24 09:42 | disposition home or self-care (01) ==
PROVIDERS: Visit Provider Internal Medicine
DX: Z00.00 Encounter for general adult medical examination without abnormal findings (principal); E11.65 Type 2 diabetes mellitus with hyperglycemia; I10 Essential (primary) hypertension; E78.00 Pure hypercholesterolemia, unspecified; H61.23 Impacted cerumen, bilateral
CPT/HCPCS: 69210; 83036; 99396

== ENCOUNTER 2023-10-06 08:13 | Outpatient (REF) | payer OTHER, SELFPAY ==
--- NOTE | ~2023-10-06 | MM_ITS ---
EXAMINATION: MM SCREENING DIGITAL BREAST TOMOSYNTHESIS, BILATERAL CLINICAL INFORMATION: Screening. Asymptomatic. Patient is confined to a wheelchair. 2, technologists required for images. Best imaging left MLO due to left arm contraction. COMPARISON: Mammography: 09/18/2022, 09/16/2021, 09/13/2020, 04/06/2019 TECHNIQUE: Digital breast tomosynthesis is performed in both the craniocaudal and mediolateral oblique views along with computer-aided detection (CAD). Synthesized 2D images are generated from the tomosynthesis. Additional left ML view obtained. Technologist notes technically challenging exam, patient in wheelchair. 2 technologists for optimizing positioning and tailoring to patient capabilities. FINDINGS: There are scattered areas of fibroglandular density (ACR BI-RADS breast composition Category b). There are technical challenges in positioning, particularly on the left similar to prior exam. The left MLO is moderately limited. The submitted images show no significant masses, abnormal calcifications, or other abnormalities. No developing density or architectural abnormality or significant changes. MM/MM tomosynthesis screening BI IMPRESSION: -No mammographic evidence of malignancy. -Patient's study limitations. ASSESSMENT: BI-RADS BI-RADS 1 - Negative RECOMMENDATION: Routine annual mammography screening. 1 year F/U This examination should not preclude the clinical evaluation of a suspicious palpable abnormality. This patient's information was entered into a reminder system with a target due date for their next mammogram.
== END 2023-10-06 08:14 | disposition home or self-care (01) ==
LOC: HO.MAMMO 08:13
PROVIDERS: PCP Internal Medicine; Visit Provider Internal Medicine
DX: Z12.31 Encounter for screening mammogram for malignant neoplasm of breast (principal)
CPT/HCPCS: 77063; 77067

== ENCOUNTER → 2023-10-06 08:30 | Outpatient (BNV) | payer OTHER, SELFPAY | PROVIDERS: PCP Internal Medicine; Visit Provider Radiology Diagnostic Radiology | DX: Z12.31 Encounter for screening mammogram for malignant neoplasm of breast (principal) | CPT/HCPCS: 77063; 77067 ==

== ENCOUNTER 2023-10-19 07:33 | Outpatient (REF) | payer OTHER, SELFPAY ==
[2023-10-19 07:50] LABS: MANUAL DIFF FLAG NO
[2023-10-19 08:03] LABS: Basophils Percent Auto 0.7 % (0-2); Eosinophils Absolute Auto 0.1 X10*3/uL (0.0-0.4); Eosinophils Percent Auto 1.4 % (0-4); Hematocrit 38.6 % (37.0-47.0); Hemoglobin 12.2 g/dl (12.0-16.0); Imm Gran Abs Auto 0.01 X10*3/uL (0.00-0.03); Imm Gran Pct Auto 0.2 % (0.0-0.4); Lymphocytes Absolute Auto 1.6 X10*3/uL (1.2-4.9); Lymphocytes Percent Auto 27.4 % (20-40); Mean Corpuscular HGB Conc 31.6 g/dl (31.0-35.0); Mean Corpuscular Hemoglobin 28.5 pg (27.0-33.0); Mean Corpuscular Volume 90.2 fL (80.0-98.0); Mean Platelet Volume 8.7 fL (9.4-12.3); Monocytes Absolute Auto 0.3 X10*3/uL (0.1-1.2); Monocytes Percent Auto 5.3 % (2-11); Neutrophils Absolute Auto 3.8 x10*3/uL (2.0-8.3); Platelet Count 301 X10*3/uL (160-400); Red Blood Count 4.28 X10*6/uL (4.20-5.50); Red Cell Distribution Width 13.9 % (11.0-16.0); White Blood Count 5.8 X10*3/uL (4.8-10.8)
[2023-10-19 08:33] LABS: Creatinine Urine 151.86 mg/dL; Microalbum/Creatinine Ratio Ur 6.5 ug/mg cr (<30)
[2023-10-19 08:39] LABS: Alanine Aminotransferase 11 U/L (0-31); Albumin Level 4.1 g/dL (3.5-5.0); Alkaline Phosphatase 60 U/L (39-117); Anion Gap 13 (12-20); Aspartate Amino Transferase 12 U/L (5-31); Bilirubin Total 0.4 mg/dL (0.0-1.0); Blood Urea Nitrogen 15 mg/dL (9-16); Calcium 9.5 mg/dL (8.4-10.2); Carbon Dioxide 28 mmol/L (22-29); Chloride 107 mmol/L (96-108); Cholesterol 155 mg/dL (<200); Estimated Glomerular Filt Rate > 60; Glucose Random 108 mg/dL (60-115); HDL Cholesterol 51 mg/dL (>40); LDL Cholesterol Calculated 89 mg/dL (<100); Potassium 3.7 mmol/L (3.3-5.1); Sodium 144 mmol/L (135-145); Total Protein 7.3 g/dL (6.5-8.0); Triglycerides 75 mg/dL (<150)
[2023-10-19 08:56] LABS: Free T4 (Free Thyroxine) 0.95 ng/dL (0.71-1.85); Thyroid Stimulating Hormone 0.54 uIU/mL (0.32-4.0); Vitamin D 25-OH Total 46.5 ng/mL (>30)
[2023-10-19 09:03] LABS: Folate 13.9 ng/mL (> or = 4.0); Vitamin B12 901 pg/mL (200-900)
== END 2023-10-19 07:34 | disposition home or self-care (01) ==
LOC: HO.LAB 07:33
PROVIDERS: PCP Internal Medicine; Visit Provider Internal Medicine
DX: E11.65 Type 2 diabetes mellitus with hyperglycemia (principal); E78.00 Pure hypercholesterolemia, unspecified
CPT/HCPCS: 36415; 80053; 80061; 82043; 82306; 82570; 82607; 82746; 84439; 84443; 85025

== ENCOUNTER 2023-10-21 09:09 | Emergency (ER) | payer OTHER, SELFPAY ==
--- NOTE | 2023-10-21 | ECG_ITS ---
Test Reason : dizziness Blood Pressure : / mmHG Vent. Rate : 079 BPM Atrial Rate : 079 BPM P-R Int : 144 ms QRS Dur : 072 ms QT Int : 374 ms P-R-T Axes : 054 035 058 degrees QTc Int : 428 ms Normal sinus rhythm Normal ECG No previous ECGs available Referred By: Generic ED Physician Electronically Signed By:JL MILLER
[2023-10-21 09:22] VITALS: BP 140/48; PULSE 75; RESP 18; TEMP 36.7; O2SAT 100; BMI 29.5
[2023-10-21 09:51] LABS: MANUAL DIFF FLAG NO
[2023-10-21 10:03] LABS: Basophils Percent Auto 0.6 % (0-2); Eosinophils Percent Auto 0.3 % (0-4); Hematocrit 38.7 % (37.0-47.0); Hemoglobin 12.4 g/dl (12.0-16.0); Imm Gran Abs Auto 0.01 X10*3/uL (0.00-0.03); Imm Gran Pct Auto 0.1 % (0.0-0.4); Lymphocytes Absolute Auto 1.1 X10*3/uL (1.2-4.9); Lymphocytes Percent Auto 16.4 % (20-40); Mean Corpuscular Hemoglobin 28.3 pg (27.0-33.0); Mean Corpuscular Volume 88.4 fL (80.0-98.0); Mean Platelet Volume 8.8 fL (9.4-12.3); Monocytes Absolute Auto 0.2 X10*3/uL (0.1-1.2); Monocytes Percent Auto 3.3 % (2-11); Neutrophils Absolute Auto 5.5 x10*3/uL (2.0-8.3); Neutrophils Percent Auto 79.3 % (45-73); Platelet Count 313 X10*3/uL (160-400); Red Blood Count 4.38 X10*6/uL (4.20-5.50); Red Cell Distribution Width 13.7 % (11.0-16.0); White Blood Count 6.9 X10*3/uL (4.8-10.8)
[2023-10-21 10:04] LABS: Anion Gap 14 (12-20); Blood Urea Nitrogen 14 mg/dL (9-16); Calcium 9.6 mg/dL (8.4-10.2); Carbon Dioxide 29 mmol/L (22-29); Chloride 106 mmol/L (96-108); Creatinine Clr Calc Pharmacy 60.7; Estimated Glomerular Filt Rate > 60; Glucose Random 135 mg/dL (60-115); Potassium 3.7 mmol/L (3.3-5.1); Sodium 145 mmol/L (135-145)
== END 2023-10-21 10:42 | disposition left against medical advice (07) ==
PROVIDERS: Emergency Provider Emergency Medicine; PCP Internal Medicine
DX: R11.10 Vomiting, unspecified (principal); R42 Dizziness and giddiness
CPT/HCPCS: 36415; 80048; 85025; 93005; 99283

== ENCOUNTER → 2023-10-21 09:43 | Outpatient (BNV) | payer OTHER, SELFPAY | PROVIDERS: Emergency Provider Emergency Medicine; PCP Internal Medicine; Visit Provider Internal Medicine | DX: R42 Dizziness and giddiness (principal) | CPT/HCPCS: 93010 ==

== ENCOUNTER 2023-10-30 08:33 | Outpatient (AMB) | payer OTHER, SELFPAY ==
[2023-10-30 08:38] VITALS: BP 134/62; PULSE 85; O2SAT 99
--- NOTE | 2023-10-30 08:38 | A.OFFPC_ITS ---
Vital Signs 10/30/23 08:38 Height 4 ft 5 in Weight 120 lb BMI 30.0 BP 134/62 Blood Pressure Location Lt brachial Position Sitting Pulse 85 Pulse Source Pulse Oximeter Pulse Oximetry (%) 99 Oxygen Delivery Method Room Air Intake Visit Reasons: 3mth f/u Intake Note: Patient is here to follow up on 3 months Hotel [employer] Room Service Supervisor Required: No Allergies No Known Allergies Allergy (Verified 10/30/23 08:39) Medication List - Last Reconciled 10/30/23 by Uri Salazar MD amoxicillin 2,000 mg PO 1 hour before procedure; blood sugar diagnostic (FreeStyle Lite Strips) As directed TID for blood glucose testing blood-glucose meter (FreeStyle Lite Meter kit) As directed cholecalciferol (vitamin D3) 25 mcg PO DAILY clotrimazole 1% 1 appl topical BID 4 weeks compress.stocking,knee,reg,med As directed 20-30 mm HG cyanocobalamin (vitamin B-12) 1,000 mcg PO DAILY folic acid 1 mg PO DAILY ketoconazole 2% 1 appl topical BID lancets (FreeStyle Lancets) 28 gauge topical TID 90 days lisinopril 10 mg PO DAILY metformin 500 mg PO DAILY miconazole nitrate 2% (Zeasorb AF) 1 appl topical DAILY simvastatin 40 mg PO DAILY Tobacco use date assessed: 10/30/23 Dental Screening Dental Screen Date: 07/24/23 HPI 3mth f/u HPI Details 58 Year old obese female with cerebral p alsy having diabetes mellitus hypertension hypercholesterolemia coming in for follow-up. Last seen in July 2023. Patient's mammogram is up-to-date Cologuard negative in October 2022. Patient was recently in the emergency room for dizziness BP lying down 1 30/60 and sitting down 132/70 patient found out to be drinking only 3 glasses of liquid in a day. Discussed the need to increase more fluid intake. Patient's blood sugar was checked during that time of dizziness and it was normal. [facility] Medical History (Updated 10/30/23 @ 08:52 by Uri Salazar MD) Impacted cerumen of both ears Annual physical exam Encounter for annual routine gynecological examination Colon cancer screening Avulsion fracture of metatarsal bone of left foot with routine healing Injury of right great toe Cerebral palsy Hypercholesterolemia Rosacea Hypertension Vitamin D deficiency Peripheral vascular disease Type 2 diabetes mellitus with hyperglycemia Surgical History History of brain shunt Family History Father Medical history unknown Mother Brain cancer Diabetes Hypertension Paternal Uncle Cancer Social History Housing: House Alcohol intake: never Patient Tobacco Use Status: Never used Tobacco e-Cigarette/Vaping Use: Never Used Second Hand Smoke Exposure: No Current occupational status: disabled Cognitive needs: No Hearing needs: No Vision needs: No Questionnaire Thrive Questionnaire Date Thrive assessed: 10/30/23 I am a: Patient What is your living situation today?: I have a steady place to live Within the past 12 months, did the food you bought not last and you didn't have the money to get more?: Never true Within the past 12 months, did you worry whether your food would run out before you got money to buy more?: Never true Do you have trouble paying for medicines?: No Do you have trouble getting transportation to medical appointments?: No Do you have trouble paying your heating and electricity bill?: No Do you have trouble taking care of your child, family member or friend?: No Do you have trouble with day-to-day activities such as bathing, preparing meals, shopping, managing finances, etc.?: No Are you currently unemployed and looking for a job?: No Are you interested in more education?: No Please select the resources that you would like help with: None Currently or been in a relationship where the following occur: no concerns reported THRIVE Score: 0 AUDIT C Alcohol Use Questionnaire (AUDIT-C) 1. How often do you have a drink containing alcohol?: Never 3. How often do you have six or more drinks on one occasion?: Never Total Score: 0 Score Reviewed/Action Taken: No MATEO-7 AMB Questionnaire MATEO-7 Date MATEO - 7 assessed: 07/24/23 Source: Developed by Drs. Jori Elias, Juani Noriega, Jagdish Cardenas and colleagues, with an educational rand from [employer] Physical exam (Primary Care) Vital Signs: Last Vital Signs Pulse 85 10/30/23 08:38 BP 134/62 10/30/23 08:38 Pulse Ox 99 10/30/23 08:38 Oxygen Delivery Method Room Air 10/30/23 08:38 BMI result Body Mass Index 30.0 Tobacco/Smoking Status: Tobacco use Status Tobacco use date assessed 10/30/23 10/30/23 08:41 Patient Tobacco Use Status Never used Tobacco 10/30/23 08:41 e-Cigarette/Vaping Use Never Used 10/30/23 08:41 Thrive Assessment: Date of Thrive Assessment Date Thrive assessed 10/30/23 10/30/23 08:41 Currently or been in a relationship where the following occur: no concerns reported Const General: alert; No acute distress Eyes Conjunctivae: conjunctivae normal Resp Auscultation: clear to auscultation bilaterally Cardio Rate: regular rate Rhythm: regular rhythm GI Inspection: Yes normal to inspection Extrem General: Yes normal to inspection and No edema Results AMB Hemoglobin A1c AMB Hemoglobin A1c 6.6 % Last Edit by BRITNI Gomez on 10/30/23 08:52 Assessment and Plan Assessment & Plan (1) Type 2 diabetes mellitus with hyperglycemia: Comment: Dr. Romero Code(s): E11.65 - Type 2 diabetes mellitus with hyperglycemia Qualifiers: Diabetes mellitus parts counterman insulin use: without parts counterman use Qualified Code(s): E11.65 - Type 2 diabetes mellitus with hyperglycemia Plan: Decrease the amount of carbohydrate intake, pasta, bread, rice and potatoes are all sugar and that is aside from all the sweet stuff, remember that fruits are good but they are Sweet also. Hemoglobin A1c goal of less than 6.5 patient is presently on metformin 500 mg once a day (2) Hypertension: Code(s): I10 - Essential (primary) hypertension Qualifiers: Hypertension type: essential hypertension Qualified Code(s): I10 - Essential (primary) hypertension Plan: Continue with blood pressure medication. Decrease salt intake and exercise on lisinopril 10 mg once a day (3) Hypercholesterolemia: Code(s): E78.00 - Pure hypercholesterolemia, unspecified Plan: Avoid fried foods, chicken skin, eggs, butter margarine, pastries and meat. Be it pork or beef they have a lot of cholesterol LDL goal of less than 100 and triglyceride of less than 150. Presently on simvastatin 40 mg once a day October 2023 last blood work (4) Cerebral palsy: Code(s): G80.9 - Cerebral palsy, unspecified Qualifiers: Cerebral palsy type: spastic diplegic Qualified Code(s): G80.1 - Spastic diplegic cerebral palsy (5) Dizziness: Code(s): R42 - Dizziness and giddiness Plan: So far workup has been negative blood work done as well as EKG.. urinalysis requestd states if dizziness occurs again - will work up further. Discussed with the family to make sure increase more fluid intake. (6) Tinea cruris: Code(s): B35.6 - Tinea cruris Plan: Antifungal cream and powder changed. Orders: Orders AMB Hemoglobin A1c Today E11.65 - Type 2 diabetes mellitus with hyperglycemia Medications: New clotrimazole 1% 1 appl topical BID 4 weeks 45 grams 0RF B35.6 - Tinea cruris miconazole nitrate 2% (Zeasorb AF) 1 appl topical DAILY 85 grams 0RF R42 - Dizziness and giddiness Discontinued nystatin (Nystop) Discontinued Reason: Doctor's Order 1 appl topical TID PRN 60 grams 1RF rash R21 - Rash and other nonspecific skin eruption Coding Level of Care Code Est Pt Level 4 (78508) Diagnoses Type 2 diabetes mellitus with hyperglycemia, without long-term current use of insulin E11.65 Diabetes mellitus intermediate insulin use: without intermediate use Essential hypertension I10 Hypertension type: essential hypertension Hypercholesterolemia E78.00 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
== END 2023-10-30 09:18 | disposition home or self-care (01) ==
PROVIDERS: PCP Internal Medicine; Visit Provider Internal Medicine
DX: E11.65 Type 2 diabetes mellitus with hyperglycemia (principal); I10 Essential (primary) hypertension; E78.00 Pure hypercholesterolemia, unspecified; G80.1 Spastic diplegic cerebral palsy; R42 Dizziness and giddiness; B35.6 Tinea cruris
CPT/HCPCS: 83036; 99214

== ENCOUNTER 2023-11-02 07:26 | Outpatient (REF) | payer OTHER, SELFPAY ==
[2023-11-02 09:18] LABS: Creatinine Urine 62.99 mg/dL
== END 2023-11-02 07:27 | disposition home or self-care (01) ==
LOC: HO.LAB 07:26
PROVIDERS: PCP Internal Medicine; Visit Provider Internal Medicine
DX: E11.65 Type 2 diabetes mellitus with hyperglycemia (principal)
CPT/HCPCS: 82570

== ENCOUNTER 2024-02-22 08:37 | Outpatient (AMB) | payer OTHER, SELFPAY ==
[2024-02-22 08:38] VITALS: BP 130/60; PULSE 104; O2SAT 97; BMI 27.6
--- NOTE | 2024-02-22 08:38 | A.OFFPC_ITS ---
Vital Signs 3 02/22/24 08:38 Height 4 ft 5 in Weight 110 lb 7.225 oz BMI 27.6 BP 130/60 Blood Pressure Location Lt brachial Position Sitting Pulse 104 H Pulse Source Pulse Oximeter Pulse Oximetry (%) 97 Oxygen Delivery Method Room Air Intake Visit Reasons: 3-4 month DM Veterinary Parasitologist Required: No Allergies No Known Allergies Allergy (Verified 02/22/24 08:39) Tobacco use date assessed: 10/30/23 Dental Screening Dental Screen Date: 02/22/24 HPI 3-4 month DM 2 HPI0 Details 58-year-old female with cerebral palsy h aving diabetes mellitus, hypertension hypercholesterolemia mammogram up-to-date October 2023, Cologuard negative October 2022. [facility] Medical History (Updated 02/22/24 @ 08:53 by Uri Salazar MD) Impacted cerumen of both ears Annual physical exam Encounter for annual routine gynecological examination Colon cancer screening Avulsion fracture of metatarsal bone of left foot with routine healing Injury of right great toe Cerebral palsy Hypercholesterolemia Rosacea Hypertension Vitamin D deficiency Peripheral vascular disease Type 2 diabetes mellitus with hyperglycemia Surgical History History of brain shunt Family History Father Medical history unknown Mother Brain cancer Diabetes Hypertension Paternal Uncle Cancer Social History Housing: House Alcohol intake: never Patient Tobacco Use Status: Never used Tobacco e-Cigarette/Vaping Use: Never Used Second Hand Smoke Exposure: No Current occupational status: disabled Cognitive needs: No Hearing needs: No Vision needs: No Questionnaire Thrive Questionnaire Date Thrive assessed: 10/30/23 AUDIT C Alcohol Use Questionnaire (AUDIT-C) 1. How often do you have a drink containing alcohol?: Never 3. How often do you have six or more drinks on one occasion?: Never Total Score: 0 Score Reviewed/Action Taken: No MATEO-7 AMB Questionnaire MATEO-7 Date MATEO - 7 assessed: 02/22/24 Feeling nervous, anxious, or on edge: 0 = Not at all Not being able to stop or control worryin = Not at all Worrying too much about different things: 0 = Not at all Trouble relaxin = Not at all Being so restless that it is hard to sit still: 0 = Not at all Becoming easily annoyed or irritable: 0 = Not at all Feeling afraid as if something awful might happen: 0 = Not at all Total MATEO-7 score (0-4 normal; 5-9 mild; 10-14 moderate; 15-21 severe): 0 Source: Developed by Drs. Jori Elias, Juani Noriega, Jagdish Cardenas and colleagues, with an educational rand from [employer]. MATEO-7 Assessment Billing MATEO-7 Assessment Tool: MATEO-7 Assessment 51419 Physical exam (Primary Care) Vital Signs: Last Vital Signs Pulse 104 H 02/22/24 08:38 BP 130/60 02/22/24 08:38 Pulse Ox 97 02/22/24 08:38 Oxygen Delivery Method Room Air 02/22/24 08:38 BMI result Body Mass Index 27.6 Tobacco/Smoking Status: Tobacco use Status Tobacco use date assessed 10/30/23 02/22/24 08:44 Patient Tobacco Use Status Never used Tobacco 02/22/24 08:44 e-Cigarette/Vaping Use Never Used 02/22/24 08:44 Thrive Assessment: Date of Thrive Assessment Date Thrive assessed 10/30/23 02/22/24 08:44 Const General: alert; No acute distress Eyes Conjunctivae: conjunctivae normal Chest Chest/axillae images: 2 1. Erythema mild on bilateral under breast area 2. Resp Auscultation: clear to auscultation bilaterally Cardio Rate: regular rate Rhythm: regular rhythm GI Inspection: Yes normal to inspection Extrem Elbow/forearm/wrist images: 2 1. Hyperkeratotic rash on the right knee with some scaliness and mild erythema Results AMB Hemoglobin A1c 2 AMB Hemoglobin A1c 6.6 % Last Edit by BRITNI Gomez on 02/22/24 08:49 Assessment and Plan Assessment & Plan (1) Type 2 diabetes mellitus with hyperglycemia: Comment: Dr. Romero Code(s): E11.65 - Type 2 diabetes mellitus with hyperglycemia Qualifiers: Diabetes mellitus fpc insulin use: without vermin exterminator use Q ualified Code(s): E11.65 - Type 2 diabetes mellitus with hyperglycemia Plan: Decrease the amount of carbohydrate intake, pasta, bread, rice and potatoes are all sugar and that is aside from all the sweet stuff, remember that fruits are good but they are Sweet also. Hemoglobin A1c goal of less than 6.5. Patient on metformin 500 mg once a day. Discussed concerns about an elevated hemoglobin A1c at 6.6 and advised increase in metformin to twice a day. Discussed about side effects of diarrhea if occurs will need to get in touch with me to change the medication (2) Hypertension: Code(s): I10 - Essential (primary) hypertension Qualifiers: Hypertension type: essential hypertension Qualified Code(s): I10 - Essential (primary) hypertension Plan: Continue with blood pressure medication. Decrease salt intake and exercise on lisinopril 10 mg once a day (3) Hypercholesterolemia: Code(s): E78.00 - Pure hypercholesterolemia, unspecified Plan: Avoid fried foods, chicken skin, eggs, butter margarine, pastries and meat. Be it pork or beef they have a lot of cholesterol LDL goal of less than 100 and triglyceride of less than 150 on simvastatin 40 mg once a day October 2023 last blood work (4) Rosacea: Code(s): L71.9 - Rosacea, unspecified Plan: Patient is prescribed Metrogel and referred to dermatology (5) Tinea corporis: Comment: inframammary and gluteal area Code(s): B35.4 - Tinea corporis Plan: referral to dermatology (6) Knee abrasion: Code(s): S80.219A - Abrasion, unspecified knee, initial encounter Plan: wear knee protection and use lotion to soften back the skin. monitor for increase swelling ? infection Orders: Orders 2 AMB Hemoglobin A1c Today E11.65 - Type 2 diabetes mellitus with hyperglycemia Referrals 2 Dermatology Referral B35.4 - Tinea corporis, L71.9 - Rosacea, unspecified Medications: New 2 metronidazole 1% (Metrogel) 1 appl topical BEDTIME 60 grams 0RF L71.9 - Rosacea, unspecified Changed 2 From metformin 500 mg PO DAILY 90 tabs 3RF E11.65 - Type 2 diabetes mellitus with hyperglycemia To metformin 500 mg PO BIDWMEAL 90 days 180 tabs 3RF E11.65 - Type 2 diabetes mellitus with hyperglycemia Coding Level of Care Code Est Pt Level 4 (82897) Diagnoses Type 2 diabetes mellitus with hyperglycemia, without long-term current use of insulin E11.65 Diabetes mellitus vermin exterminator insulin use: without fpc use Essential hypertension I10 Hypertension type: essential hypertension Hypercholesterolemia E78.00 Rosacea L71.9 Tinea corporis B35.4 Knee abrasion S80.219A Additional Codes MATEO-7 Assessment Billing - MATEO-7 Assessment Tool: MATEO-7 Assessment [id number] ([id number])
== END 2024-02-22 09:04 | disposition home or self-care (01) ==
PROVIDERS: PCP Internal Medicine; Visit Provider Internal Medicine
DX: E11.65 Type 2 diabetes mellitus with hyperglycemia (principal); I10 Essential (primary) hypertension; S80.211A Abrasion, right knee, initial encounter; E78.00 Pure hypercholesterolemia, unspecified; L71.9 Rosacea, unspecified; B35.4 Tinea corporis
CPT/HCPCS: 83036; 99214

== ENCOUNTER 2024-05-02 16:30 | Outpatient (AMB) | payer OTHER, SELFPAY ==
--- NOTE | 2024-05-02 16:35 | A.OFFPC_ITS ---
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 Last seen in February 2024. Patient's mammogram is up-to-date. Cologuard testing up-to-date October 2022. [facility] Medical History (Updated 02/22/24 @ 08:53 by Uri Salazar MD) Impacted cerumen of both ears Annual physical exam Encounter for annual routine gynecological examination Colon cancer screening Avulsion fracture of metatarsal bone of left foot with routine healing Injury of right great toe Cerebral palsy Hypercholesterolemia Rosacea Hypertension Vitamin D deficiency Peripheral vascular disease Type 2 diabetes mellitus with hyperglycemia Surgical History History of brain shunt Family History (Updated 05/02/24 @ 16:37 by BRITNI Winston) Father Medical history unknown Mother Brain cancer Diabetes Hypertension Paternal Uncle Cancer Social History Housing: House Alcohol intake: never Patient Tobacco Use Status: Never used Tobacco e-Cigarette/Vaping Use: Never Used Second Hand Smoke Exposure: No service: No Current occupational status: disabled Cognitive needs: No Hearing needs: No Vision needs: No Questionnaire PHQ-9 Over the last 2 weeks, how often have you been bothered by any of the following problems? 1. Little interest or pleasure in doing things: not at all 2. Feeling down, depressed, or hopeless: not at all 3. Trouble falling or staying asleep, or sleeping too much: not at all 4. Feeling tired or having little energy: not at all 5. Poor appetite or overeating: not at all 6. Feeling bad about yourself - or that you are a failure or have let yourself or your family down: not at all 7. Trouble concentrating on things, such as reading the newspaper or watching television: not at all 8. Moving or speaking so slowly that other people could have noticed. Or the opposite - being so fidgety or restless that you have been moving around a lot more than usual: not at all 9. Thoughts that you would be better off or of hurting yourself in some way: not at all Total score: 0 Source: Developed by Drs. Jori Elias, Juani Noriega, Jagdish Cardenas and colleagues, with an educational rand from [employer]. Thrive Questionnaire Date Thrive assessed: 10/30/23 Are you currently unemployed and looking for a job?: No AUDIT C Alcohol Use Questionnaire (AUDIT-C) 1. How often do you have a drink containing alcohol?: Never Total Score: 0 MATEO-7 AMB Questionnaire MATEO-7 Date MATEO - 7 assessed: 02/22/24 Source: Developed by Drs. Jori Elias, Juani Noriega, Jagdish Cardenas and colleagues, with an educational rand from [employer]. Physical exam (Primary Care) Vital Signs: Last Vital Signs BP 116/70 05/02/24 16:37 BMI result Body Mass Index 26.0 Tobacco/Smoking Status: Tobacco use Status Tobacco use date assessed 10/30/23 05/02/24 16:42 Patient Tobacco Use Status Never used Tobacco 05/02/24 16:42 e-Cigarette/Vaping Use Never Used 05/02/24 16:42 PHQ-9: PHQ-9 Score PHQ-9: Total score 0 05/02/24 16:42 Thrive Assessment: Date of Thrive Assessment Date Thrive assessed 10/30/23 05/02/24 16:42 Const General: alert; No acute distress Eyes Conjunctivae: conjunctivae normal Resp Auscultation: clear to auscultation bilaterally Cardio Rate: regular rate Rhythm: regular rhythm GI Inspection: Yes normal to inspection Abdomen image: 2 1. Noted mild erythema with scaly rash underneath the breast bilateral 2. Female genitals images: 2 1. Erythematous rash noted on the left groin to the perineal area Extrem General: Yes normal to inspection and No edema Assessment and Plan Assessment & Plan (1) Type 2 diabetes mellitus with hyperglycemia: Comment: Dr. Romero Code(s): E11.65 - Type 2 diabetes mellitus with hyperglycemia Qualifiers: Diabetes mellitus long-term insulin use: without long-term use Q ualified Code(s): E11.65 - Type 2 diabetes mellitus with hyperglycemia Plan: Decrease the amount of carbohydrate intake, pasta, bread, rice and potatoes are all sugar and that is aside from all the sweet stuff, remember that fruits are good but they are Sweet also. Hemoglobin A1c goal of less than 6.5. Patient is on metformin 500 mg twice a day (2) Hypertension: Code(s): I10 - Essential (primary) hypertension Qualifiers: Hypertension type: essential hypertension Qualified Code(s): I10 - Essential (primary) hypertension Plan: Continue with blood pressure medication. Decrease salt intake and exercise patient takes lisinopril 10 mg once a day (3) Hypercholesterolemia: Code(s): E78.00 - Pure hypercholesterolemia, unspecified Plan: Avoid fried foods, chicken skin, eggs, butter margarine, pastries and meat. Be it pork or beef they have a lot of cholesterol 10/21/2023 last blood work on simvastatin 40 mg once a day (4) Cerebral palsy: Code(s): G80.9 - Cerebral palsy, unspecified Qualifiers: Cerebral palsy type: spastic diplegic Qualified Code(s): G80.1 - Spastic diplegic cerebral palsy (5) Rosacea: Code(s): L71.9 - Rosacea, unspecified Plan: PAtient will be seeing dermatology may, placed on metrogel (6) Tinea corporis: Comment: inframammary and gluteal area Code(s): B35.4 - Tinea corporis Plan: will treat with fluconazole (7) Tinea cruris: Code(s): B35.6 - Tinea cruris Plan: will treat with fluconazole Medications: New 2 fluconazole take 2 tabs the first day then once a day orally daily; 8 tabs 0RF B35.4 - Tinea corporis Coding Level of Care Code Est Pt Level 4 (06507) Diagnoses Type 2 diabetes mellitus with hyperglycemia, without long-term current use of insulin E11.65 Diabetes mellitus middle or intermediate school principal insulin use: without middle or intermediate school principal use Essential hypertension I10 Hypertension type: essential hypertension Hypercholesterolemia E78.00 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
[2024-05-02 16:37] VITALS: BP 116/70; BMI 26.0
== END 2024-05-02 17:22 | disposition home or self-care (01) ==
PROVIDERS: PCP Internal Medicine; Visit Provider Internal Medicine
DX: E11.65 Type 2 diabetes mellitus with hyperglycemia (principal); I10 Essential (primary) hypertension; E78.00 Pure hypercholesterolemia, unspecified; G80.1 Spastic diplegic cerebral palsy; L71.9 Rosacea, unspecified; B35.4 Tinea corporis; B35.6 Tinea cruris

== ENCOUNTER → 2024-05-02 16:30 | Outpatient (BNVA) | payer OTHER, SELFPAY | PROVIDERS: PCP Internal Medicine; Visit Provider Internal Medicine | DX: E11.65 Type 2 diabetes mellitus with hyperglycemia (principal); I10 Essential (primary) hypertension; E78.00 Pure hypercholesterolemia, unspecified; G80.1 Spastic diplegic cerebral palsy; L71.9 Rosacea, unspecified; B35.4 Tinea corporis; B35.6 Tinea cruris | CPT/HCPCS: 99212 ==

== ENCOUNTER 2024-07-11 07:29 | Outpatient (REF) | payer OTHER, SELFPAY ==
[2024-07-11 07:55] LABS: MANUAL DIFF FLAG NO
[2024-07-11 08:07] LABS: Basophils Absolute Auto 0.1 X10*3/uL (0.0-0.2); Eosinophils Absolute Auto 0.2 X10*3/uL (0.0-0.4); Eosinophils Percent Auto 3.4 % (0-4); Hematocrit 36.5 % (37.0-47.0); Hemoglobin 11.7 g/dl (12.0-16.0); Imm Gran Abs Auto 0.01 X10*3/uL (0.00-0.03); Imm Gran Pct Auto 0.1 % (0.0-0.4); Lymphocytes Absolute Auto 1.7 X10*3/uL (1.2-4.9); Lymphocytes Percent Auto 23.9 % (20-40); Mean Corpuscular HGB Conc 32.1 g/dl (31.0-35.0); Mean Corpuscular Volume 90.6 fL (80.0-98.0); Mean Platelet Volume 8.7 fL (9.4-12.3); Monocytes Absolute Auto 0.4 X10*3/uL (0.1-1.2); Monocytes Percent Auto 5.7 % (2-11); Neutrophils Absolute Auto 4.6 x10*3/uL (2.0-8.3); Neutrophils Percent Auto 65.9 % (45-73); Platelet Count 335 X10*3/uL (160-400); Red Blood Count 4.03 X10*6/uL (4.20-5.50); Red Cell Distribution Width 14.3 % (11.0-16.0)
[2024-07-11 08:27] LABS: Estimated Average Glucose 140 mg/dL; Hemoglobin A1C 142.5796 umol/L; Hemoglobin A1c % 6.5 % (<6.0); Total Hemoglobin (HGBA1C) 3001.4847 umol/L
[2024-07-11 08:40] LABS: Alanine Aminotransferase 12 U/L (0-31); Albumin Level 4.1 g/dL (3.5-5.0); Alkaline Phosphatase 49 U/L (39-117); Anion Gap 13 (12-20); Aspartate Amino Transferase 17 U/L (5-31); Bilirubin Total 0.3 mg/dL (0.0-1.0); Blood Urea Nitrogen 17 mg/dL (9-16); Calcium 9.7 mg/dL (8.4-10.2); Carbon Dioxide 29 mmol/L (22-29); Chloride 106 mmol/L (96-108); Cholesterol 146 mg/dL (<200); Estimated Glomerular Filt Rate > 60; Glucose Random 118 mg/dL (60-115); HDL Cholesterol 49 mg/dL (>40); LDL Cholesterol Calculated 85 mg/dL (<100); Sodium 144 mmol/L (135-145); Triglycerides 64 mg/dL (<150)
[2024-07-11 08:55] LABS: Free T4 (Free Thyroxine) 1.11 ng/dL (0.71-1.85); Thyroid Stimulating Hormone 0.52 uIU/mL (0.32-4.0)
--- OUTSIDE RECORDS SUMMARY | 2024-07-13 12:38 | XMS_ITS ---
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 Generated for Printi miguel/Pasha/eTransmitting on:?07/13/2024 12:38 PM EST
--- OUTSIDE RECORDS SUMMARY | 2024-07-13 12:38 | XMS_ITS | Patient Health Record ---
Author Organization [facility] Address [address] [place] [address] Care Team Providers Care Tobacco Baler Name Role Phone Uri Salazar Primary Care Provider Bayron Caruso Unavailable [phone] Reason For Referral No Information Social History Tobacco Use: Social History Observation Description Date Details (start date - stop date) Never Smoker NA - NA Tobacco Use/Smoking Question Answer Notes Are you a: nonsmoker Additional Findings: Tobacco Non-User Current no n-smoker Alcohol Screen Question Answer Notes Did you have a drink containing alcohol in the p ast year? No Points 0 Interpretation Negative Tobacco use other than smoking: Question Answer Notes Are you an other tobacco user? No Encounters Encounter Location Date Provider Diagnosis [facility] [address] [place] [address] 04/13/2024 Bayron Jim [address] [address] 05/11/2024 Bayron Jim Plan Of Treatment Next Appt Details Provider Name:Bayron Jim , 08/01/2024 02:00:00 PM, [address] [facility], [facility] [address], [place], [address], Insurance Providers Payer Name Payer Address Payer Phone Subscriber Number Group Number Insured Name Patient Relationship to Insured Coverage Start Date Coverage End Date Medicare National [employer] [address] [place] [phone] [id number] Shari Delgadillo Self - patient is the insured [facility] [employer] Claims [address] [place] [address] [phone] [id number] Shari Delgadillo Self - patient is the insured Medical (General) History Medical History History ICD Code covid-19 Diabetic High Blood Pressure Cerebral palsy
--- OUTSIDE RECORDS SUMMARY | 2024-07-13 12:38 | XMS_ITS ---
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 Generated for Printi ng/Valerieg/eTransmitting on:?07/13/2024 12:38 PM EST
== END 2024-07-11 07:30 | disposition home or self-care (01) ==
LOC: HO.LAB 07:29
PROVIDERS: PCP Internal Medicine; Visit Provider Internal Medicine
DX: E11.65 Type 2 diabetes mellitus with hyperglycemia (principal); E78.00 Pure hypercholesterolemia, unspecified
CPT/HCPCS: 36415; 80053; 80061; 83036; 84439; 84443; 85025

== ENCOUNTER 2024-07-28 08:51 | Outpatient (AMB) | payer OTHER, SELFPAY ==
--- NOTE | 2024-07-28 08:55 | MHC.PC.OV ---
Vital Signs 07/28/24 08:58 Height 4 ft 5 in Weight 103 lb 13.404 oz BMI 26.0 BP 126/68 Blood Pressure Location Rt brachial Position Sitting Pulse 89 Pulse Source Pulse Oximeter Pulse Oximetry (%) 98 Oxygen Delivery Method Room Air Intake Visit Reasons: Annual exam Intake Note: Patient here for an annual physical exam Personnel Adviser Required: No Accompanied by: Brother Allergies No Known Allergies Allergy (Verified 07/28/24 08:59) Medication List - Last Reconciled 07/28/24 by Uri Salazar MD amoxicillin 2,000 mg PO 1 hour before procedure; blood sugar diagnostic (FreeStyle Lite Strips) As directed TID for blood glucose testing blood-glucose meter (FreeStyle Lite Meter kit) As directed cholecalciferol (vitamin D3) 25 mcg PO DAILY clotrimazole 1% 1 appl topical BID 4 weeks compress.stocking,knee,reg,med As directed 20-30 mm HG cyanocobalamin (vitamin B-12) 1,000 mcg PO DAILY fluconazole Change prescription to 1 and half tablets 1st day and then repeat in 3 days folic acid 1 mg PO DAILY ketoconazole 2% 1 appl topical BID lancets (FreeStyle Lancets) 28 gauge topical TID 90 days lisinopril 10 mg PO DAILY metformin 500 mg PO BIDWMEAL 90 days metronidazole 1% (Metrogel) 1 appl topical BEDTIME miconazole nitrate 2% (Zeasorb AF) 1 appl topical DAILY nystatin (Nystop) 1 appl topical TID PRN simvastatin 40 mg PO DAILY Tobacco use date assessed: 10/30/23 Dental Screening Dental Screen Date: 02/22/24 HPI Annual exam HPI Details The patient is a 59-year-old female presenting with chronic Type 2 Diabetes Mellitus, which has been previously treated with Metformin 500 mg twice daily. Recent Hemoglobin A1c was 6.5, indicating slight improvement. The patient reports mild, ongoing abdominal symptoms, including diarrhea, which has been persistent for an indefinite period. 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 Weight loss has been observed, from 110 to 103 pounds over several months, raising concerns. Patient denies skipping meals, and appetite remains adequate. A notable history of mild anemia persists, with hemoglobin levels slightly below normal at 11.7 g/dL. No new surgeries or major health issues reported. There is occasional bilateral knee pain, predominantly affecting the right knee, with episodic giving way, suggesting possible arthritis. Past efforts in weight management are suggested by a steady decrease in weight. No urinary changes, travel, or recent family medical issues reported. - Routine eye exams up to date - Mammogram current - Cologuard test current - Vaccination: Pneumonia and flu vaccines administered - Cholesterol management: LDL 85 mg/dL - Thyroid function within normal limits - Blood pressure well controlled - Denies recent travel - No reported issues with hearing - Uses compliant footwear and compression socks - Family history negative for cardiac events - No changes in housing or employment reported - Cardiovascular: Denies chest pain, palpitations - Gastrointestinal: Reports diarrhea, denies nausea, vomiting, abdominal pain - Musculoskeletal: Reports knee pain; occasional giving way - General: Reports weight loss, denies fever - Neurological: Denies headaches - Labs: Hemoglobin 11.7 g/dL, Hemoglobin A1c 6.5% - Tests: Negative stool blood test - Cholesterol panel: LDL 85 mg/dL [facility] Medical History (Updated 07/28/24 @ 09:51 by Uri Salazar MD) Impacted cerumen of both ears Annual physical exam Encounter for annual routine gynecological examination Colon cancer screening Avulsion fracture of metatarsal bone of left foot with routine healing Injury of right great toe Cerebral palsy Hypercholesterolemia Rosacea Hypertension Vitamin D deficiency Peripheral vascular disease Type 2 diabetes mellitus with hyperglycemia Surgical History History of brain shunt Family History Father Medical history unknown Mother Brain cancer Diabetes Hypertension Paternal Uncle Cancer Social History Housing: House Alcohol intake: never Patient Tobacco Use Status: Never used Tobacco e-Cigarette/Vaping Use: Never Used Second Hand Smoke Exposure: No service: No Current occupational status: disabled Cognitive needs: No Hearing needs: No Vision needs: No Questionnaire PHQ-9 Over the last 2 weeks, how often have you been bothered by any of the following problems? 1. Little interest or pleasure in doing things: not at all 2. Feeling down, depressed, or hopeless: not at all 3. Trouble falling or staying asleep, or sleeping too much: not at all 4. Feeling tired or having little energy: not at all 5. Poor appetite or overeating: not at all 6. Feeling bad about yourself - or that you are a failure or have let yourself or your family down: not at all 7. Trouble concentrating on things, such as reading the newspaper or watching television: not at all 8. Moving or speaking so slowly that other people could have noticed. Or the opposite - being so fidgety or restless that you have been moving around a lot more than usual: not at all 9. Thoughts that you would be better off or of hurting yourself in some way: not at all Total score: 0 Source: Developed by Drs. Jori Elias, Juani Noriega, Jagdish Cardenas and colleagues, with an educational rand from [employer]. Thrive Questionnaire Date Thrive assessed: 07/21/24 I am a: Patient What is your living situation today?: I have a steady place to live Within the past 12 months, did the food you bought not last and you didn't have the money to get more?: Never true Within the past 12 months, did you worry whether your food would run out before you got money to buy more?: Never true Do you have trouble paying for medicines?: No Do you have trouble getting transportation to medical appointments?: No Do you have trouble paying your heating and electricity bill?: No Do you have trouble taking care of your child, family member or friend?: I choose not to answer this question Do you have trouble with day-to-day activities such as bathing, preparing meals, shopping, managing finances, etc.?: Yes Are you currently unemployed and looking for a job?: No Are you interested in more education?: No Please select the resources that you would like help with: None Currently or been in a relationship where the following occur: No concerns reported THRIVE Score: 0 AUDIT C Alcohol Use Questionnaire (AUDIT-C) 1. How often do you have a drink containing alcohol?: Never Total Score: 0 MATEO-7 AMB Questionnaire MATEO-7 Date MATEO - 7 assessed: 02/22/24 Feeling nervous, anxious, or on edge: 0 = Not at all Not being able to stop or control worryin = Not at all Worrying too much about different things: 0 = Not at all Trouble relaxin = Not at all Being so restless that it is hard to sit still: 0 = Not at all Becoming easily annoyed or irritable: 0 = Not at all Feeling afraid as if something awful might happen: 0 = Not at all Total MATEO-7 score (0-4 normal; 5-9 mild; 10-14 moderate; 15-21 severe): 0 Source: Developed by Drs. Jori Elias, Juani Noriega, Jagdish Cardenas and colleagues, with an educational rand from [employer]. Review of Systems Const Denies poor appetite and Denies weakness Eyes Denies no additional complaints ENT Reports Normal hearing present, Denies dizziness, Denies nasal congestion, Denies tinnitus and Denies sore throat Card Denies chest pain, Denies syncope, Denies rapid heart rate and Denies dyspnea Resp Denies cough and Denies dyspnea GI Denies change in stool character, Reports constipation, Denies diarrhea, Denies nausea and Denies vomiting Denies urinary frequency, Denies difficulty voiding and Denies dysuria Neuro Reports Normal hearing present, Denies confusion, Denies dizziness, Denies syncope and Denies weakness Psych Denies confusion Physical exam (Primary Care) Vital Signs: Last Vital Signs Pulse 89 07/28/24 08:58 BP 126/68 07/28/24 08:58 Pulse Ox 98 07/28/24 08:58 Oxygen Delivery Method Room Air 07/28/24 08:58 BMI result Body Mass Index 26.0 Tobacco/Smoking Status: Tobacco use Status Tobacco use date assessed 10/30/23 07/28/24 08:56 Patient Tobacco Use Status Never used Tobacco 07/28/24 08:56 e-Cigarette/Vaping Use Never Used 07/28/24 08:56 PHQ-9: PHQ-9 Score PHQ-9: Total score 0 07/28/24 09:25 Thrive Assessment: Date of Thrive Assessment Date Thrive assessed 07/21/24 07/28/24 08:56 Currently or been in a relationship where the following occur: No concerns reported Const General: No confusion Orientation/consciousness: No confusion HENMT Head: Yes normocephalic Ears: external ears normal and TM's normal bilaterally Face and sinus: Yes normal facial exam Mouth: moist mucous membranes Throat: Yes tonsils normal Eyes Conjunctivae: conjunctivae normal Pupils: Equal, round and reactive pupils present and Pupil accommodation reflex normal Direct Ophthalmoscopy: normal light reflex Neck Neck: No lymphadenopathy Thyroid: Thyroid normal Chest Chest palpation & inspection: normal inspection of the chest Resp Effort & Inspection: normal respiratory effort and no audible wheezes Auscultation: clear to auscultation bilaterally, no crackles, no wheezes and lung sounds not diminished Cardio Rate: regular rate Rhythm: regular rhythm Peripheral pulses: radial pulses present and dorsalis pedis present GI Other: guaiac negative stools Palpation (GI): no masses Auscultation: normal bowel sounds and normoactive bowel sounds Rectal Exam - Female: deferred Back/Spine/Pelvis Other: L sahoulder cannot shrug, L hand slow open of hand contracture L elbow to 90 degrees, L leg cannot dorsiflex Skin General skin exam: no rashes or lesions noted Rashes: no rashes Neuro General: No confusion Cranial nerves: Yes Equal, round and reactive pupils present and Yes Normal hearing present Cognition (Neuro): normal cognition Motor exam (neuro): 5/5 motor strength present throughout Deep tendon reflexes (DTR's): Right brachioradialis reflex intensity grade: 2+, Left brachioradialis reflex intensity grade: 2+, Right patellar reflex intensity grade: 2+ and Left patellar reflex intensity grade: 2+ Coding Level of Care Code Est Pt Prev Care 40-64y(52815) Diagnoses Annual physical exam 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 Cerebral palsy type: spastic diplegic Type 2 diabetes mellitus with hyperglycemia, without long-term current use of insulin E11.65 Diabetes mellitus detention insulin use: without termite technician use Essential hypertension I10 Hypertension type: essential hypertension Hypercholesterolemia E78.00 Anemia D64.9 Diarrhea, unspecified type R19.7 Diarrhea type: unspecified type Knee pain, right M25.561 Foul smelling urine R82.90 Assessment & Plan Assessment & Plan (1) Annual physical exam: Code(s): Z00.00 - Encounter for general adult medical examination without abnormal findings Category: Medical (2) Cerebral palsy: Code(s): G80.9 - Cerebral palsy, unspecified Category: Medical Qualifiers: Cerebral palsy type: spastic diplegic Qualified Code(s): G80.1 - Spastic diplegic cerebral palsy (3) Type 2 diabetes mellitus with hyperglycemia: Comment: Dr. Romero Code(s): E11.65 - Type 2 diabetes mellitus with hyperglycemia Category: Medical Qualifiers: Diabetes mellitus termite technician insulin use: without detention use Qualified Code(s): E11.65 - Type 2 diabetes mellitus with hyperglycemia (4) Hypertension: Code(s): I10 - Essential (primary) hypertension Category: Medical Qualifiers: Hypertension type: essential hypertension Qualified Code(s): I10 - Essential (primary) hypertension (5) Hypercholesterolemia: Code(s): E78.00 - Pure hypercholesterolemia, unspecified Category: Medical (6) Anemia: Code(s): D64.9 - Anemia, unspecified Category: Medical (7) Diarrhea: Code(s): R19.7 - Diarrhea, unspecified Category: Medical Qualifiers: Diarrhea type: unspecified type Qualified Code(s): R19.7 - Diarrhea, unspecified Plan: will send for stool test (8) Knee pain, right: Code(s): M25.561 - Pain in right knee Category: Medical (9) Foul smelling urine: Code(s): R82.90 - Unspecified abnormal findings in urine Category: Medical Plan - Discontinue Metformin and initiate low-dose Jardiance - Stool testing for diarrheal cause - Knee x-ray and physical therapy referral for knee pain - Monitor anemia with periodic CBC - Continue diabetes monitoring and maintain dietary management Today, I reviewed the patient's chronic diabetes management and initiated a change from Metformin to Jardiance, explaining the potential benefits such as better glucose control, along with increased urination as a possible side effect. We discussed the concerns of persistent diarrhea and weight loss, with plans to perform stool testing to identify any infectious causes. The patient's anemia was noted; I explained the importance of monitoring her hemoglobin levels. Regarding the knee pain, I advised on options for an x-ray and physical therapy to address possible arthritis. The necessity for ongoing lifestyle modifications, including diet, was emphasized. Physical exams and existing health maintenance screenings were reviewed as up to date. - Start taking Jardiance as prescribed; monitor for any side effects. - Submit stool samples for testing as per lab instructions. - Schedule an x-ray and attend physical therapy for knee assessment. - Maintain current dietary regimen; alert for any abnormal symptoms. - Monitor blood sugar levels regularly. - Report any new or worsening symptoms promptly. - Continue attending regular health check-ups and screenings. Orders: Orders UA CC w/rflx Micro + Cult Today R30.0 - Dysuria, R82.90 - Unspecified abnormal findings in urine Leukocytes Stool Qualitative Today R19.7 - Diarrhea, unspecified CDiff Gene PCR Today R19.7 - Diarrhea, unspecified XR knee RT 2V Today M25.561 - Pain in right knee PT Evaluation and Treatment Today M25.561 - Pain in right knee Ova and Parasite Today R19.7 - Diarrhea, unspecified Medications: New empagliflozin (Jardiance) 10 mg PO DAILY 30 tabs 2RF E11.65 - Type 2 diabetes mellitus with hyperglycemia Discontinued metformin Discontinued Reason: Doctor's Order 500 mg PO BIDWMEAL 90 days 180 tabs 3RF E11.65 - Type 2 diabetes mellitus with hyperglycemia
--- OUTSIDE RECORDS SUMMARY | 2024-07-28 08:56 | XMS_ITS ---
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 Generated for Printi miguel/Pasha/eTransmitting on:?07/28/2024 08:56 AM EST
--- OUTSIDE RECORDS SUMMARY | 2024-07-28 08:57 | XMS_ITS ---
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 Generated for Printi miguel/Pasha/eTransmitting on:?07/28/2024 08:56 AM EST
--- OUTSIDE RECORDS SUMMARY | 2024-07-28 08:57 | XMS_ITS | Patient Health Record ---
Author Organization [facility] Address [address] [place] [address] Care Team Providers Care Seafood Processor Name Role Phone Uri Salazar Primary Care Provider Bayron Caruso Unavailable [phone] Reason For Referral No Information Social History [...] No Encounters Encounter Location Date Provider Diagnosis [facility] [address] [place] [address] 04/13/2024 Bayron Jim [address] [address] 05/11/2024 Bayron Jim Plan Of Treatment Next Appt Details Provider Name:Bayron Jim , 08/01/2024 02:00:00 PM, [address] [facility] [address], [place], [address], Insurance Providers Payer Name Payer Address Payer Phone Subscriber Number Group Number Insured Name Patient Relationship to Insured Coverage Start Date Coverage End Date Medicare National [employer] [address] [place] [phone] [id number] Shari Delgadillo Self - patient is the insured [facility] [employer] Claims [address] [place] [phone] [id number] Shari Delgadillo Self - patient is the insured Medical (General) History Medical History History ICD Code covid-19 Diabetic High Blood Pressure Cerebral palsy
[2024-07-28 08:58] VITALS: BP 126/68; PULSE 89; O2SAT 98; BMI 26.0
== END 2024-07-28 09:57 | disposition home or self-care (01) ==
PROVIDERS: PCP Internal Medicine; Visit Provider Internal Medicine
DX: Z00.00 Encounter for general adult medical examination without abnormal findings (principal); G80.1 Spastic diplegic cerebral palsy; E11.65 Type 2 diabetes mellitus with hyperglycemia; I10 Essential (primary) hypertension; E78.00 Pure hypercholesterolemia, unspecified; D64.9 Anemia, unspecified; R19.7 Diarrhea, unspecified; M25.561 Pain in right knee; R82.90 Unspecified abnormal findings in urine

== ENCOUNTER → 2024-07-28 08:51 | Outpatient (BNVA) | payer OTHER, SELFPAY | PROVIDERS: PCP Internal Medicine; Visit Provider Internal Medicine | DX: Z00.00 Encounter for general adult medical examination without abnormal findings (principal); M20.40 Other hammer toe(s) (acquired), unspecified foot; E11.9 Type 2 diabetes mellitus without complications; G80.1 Spastic diplegic cerebral palsy; E11.65 Type 2 diabetes mellitus with hyperglycemia; I10 Essential (primary) hypertension; E78.00 Pure hypercholesterolemia, unspecified; D64.9 Anemia, unspecified; R19.7 Diarrhea, unspecified; M25.561 Pain in right knee; R82.90 Unspecified abnormal findings in urine; R30.0 Dysuria; Z79.84 Long term (current) use of oral hypoglycemic drugs | CPT/HCPCS: 96127; 99396 ==

== ENCOUNTER 2024-08-08 06:11 | Outpatient (REF) | payer OTHER, SELFPAY ==
--- NOTE | ~2024-08-08 | XR_ITS ---
CLINICAL HISTORY: M25.561 - Pain in right knee Right knee two views Comparison: None Findings: Severe medial and lateral compartment joint space narrowing with nnfe-gl-zsdq appearance. Component may be accentuated by projection. Mild hypertrophic changes medially. Intact patellofemoral compartment. No joint effusion. No acute fracture or dislocation. Soft tissues intact. Impression: Severe medial slightly greater than lateral joint space narrowing with fkqo-bh-oeth appearance. No acute fracture. This document has been electronically signed by: Delfino Reynoso MD on 08/08/2024 09:24:48
--- OUTSIDE RECORDS SUMMARY | 2024-08-08 06:23 | XMS_ITS ---
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 Generated for Kaitlynni miguel/Pasha/eTransmitting on:?08/08/2024 06:23 AM EST
--- OUTSIDE RECORDS SUMMARY | 2024-08-08 06:23 | XMS_ITS ---
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 Generated for Kaitlynni miguel/Pasha/eTransmitting on:?08/08/2024 06:23 AM EST
--- OUTSIDE RECORDS SUMMARY | 2024-08-08 06:23 | XMS_ITS | Data Portability ---
Author Organization [employer] [facility] [place] 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 I have reviewed and agree with the Assessment and Plan as documented by the Travel Professional. We discussed the diagnostic uncertainty of home visits and the risk associated with this. In this case the patient and I felt this to be an acceptable and reasonable amount of risk given the benefit of avoiding an ED visit. The patient given the opportunity to ask questions. Advised if develops CP/severe SOB/turning blue/uncontrolle d n/v/d / AMS/ syncope/ hi fever unresponsive to APAP to call 911- verbalized understanding of instruction Not available 12/23/2023 11:33:30 Plan of Treatment Reminders Order Date Submit Date Provider Last Modified By Organization Details Last Modified Time Details Appointments None recorded. Lab rapid SARS CoV 2 Ag, QL IA, respiratory specimen 2023 024 [email or web address] 0 [facility], [address] [place] [address], [phone], 4 11:35:44 rapid strep group A, throat 2023 024 [email or web address] 0 [facility], [address] [place] [address], [phone], 4 11:35:45 rapid flu (A+B) 2023 024 [email or web address] 0 [facility], [address] [place] [address], [phone], 11:35:42 Referral None recorded. Procedures None recorded. Surgeries None recorded. Imaging None recorded. Medication Orders benzonatate 100 mg capsule 2023 024 [id number], [address], [place], [phone], 11:35:55 Patient TargetsNo targets recorded. Patient InstructionsNo instructions recorded. Reason for Referral None Reported. Results Created Date Observation Date Name Description Value Unit Range Abnormal Flag Note LastModifiedBy Organization Detail LastModifiedTime 12/23/19 24 12/23/2023 rapid flu (A+B) Flu negati ve Not Available [facility] ed [address] [place] [address], [phone], 12/23/2023 11:33:56 12/23/19 24 12/23/2023 rapid strep group A, throa t Strep negati ve Not Available [facility] [address] [place] [address], [phone], 12/23/2023 11:33:51 12/23/19 24 12/23/2023 rapid SARS CoV 2 Ag, QL IA, respi rator y speci men rapid SARS CoV 2 Ag, QL IA, respiratory specimen negati ve Not Available [facility] [address] [place] [address], [phone], 12/23/2023 11:33:38 Result Notes None recorded. Medical Equipment None Reported. Allergies No known drug allergies Medications Name Sig Start Date Stop Date Status Note LastModified by Organization Details LastModified Time amoxicillin 500 mg capsule TAKE 4 CAPSULES BY MOUTH 1 HOUR BEFORE PROCEDURE active Not Available Not Available No t Available metformin 500 mg tablet TAKE 1 TABLET BY MOUTH DAILY active Not Available Not Available No t Available FreeStyle Lancets 28 gauge USE TOPICALLY TO CHECK BLOOD SUGAR THREE TIMES DAILY active Not Available Not Available No t Available Zeasorb AF 2 % topical powder APPLY TOPICALLY DAILY active Not Available Not Available No t Available simvastatin 40 mg tablet TAKE 1 TABLET BY MOUTH DAILY active Not Available Not Available No t Available benzonatate 100 mg capsule TAKE 1 CAPSULE BY MOUTH THREE TIMES DAILY NEEDED active Not Available Not Available No t Available simvastatin 20 mg tablet TAKE 1 TABLET BY MOUTH DAILY active Not Available Not Available No t Available lisinopril 10 mg tablet TAKE 1 TABLET BY MOUTH DAILY active Not Available Not Available No t Available folic acid 1 mg tablet TAKE 1 TABLET BY MOUTH DAILY active Not Available Not Available No t Available ketoconazole 2 % topical cream APPLY TOPICALLY TO THE AFFECTED AREA TWICE DAILY active Not Available Not Available No t Available clotrimazole 1 % topical cream APPLY TOPICALLY TO THE AFFECTED AREA TWICE DAILY FOR 4 WEEKS active Not Available Not Available No t Available FreeStyle Lite Strips USE THREE TIMES DAILY DIRECTED FOR BLOOD GLUCOSE TESTING active Not Available Not Available No t Available Klayesta 100,000 unit/gram topical powder APPLY TOPICALLY THREE TIMES DAILY NEEDED FOR RASH active Not Available Not Available No t Available Vitals Date Recorded Body temperature Body height Oxygen saturation Oxygen saturation in Arterial blood by Pulse oximetry Heart rate Body weight Respiratory rate Systolic blood pressure Diastolic blood pressure Provider Name and Address Organization Details Last Updated DateTime 4 98.4 [degF] 142.24 cm 97 % 97 % 86 /min 05106.8 56 g 16 /min 132 mm[Hg] 74 mm[Hg] Not Available [facility] - production 4 11:15:44 Social History None recorded. Functional Status None recorded. Mental Status None recorded. Family History Nothing Reported. Medical History No medical history recorded. Gynecological HistoryNo gynecological history recorded. Obstetrics History GPAL:G 0 P 0 0 0 0 Past Encounters Encounter ID Performer Location Encounter Start Date Encounter Closed Date Diagnosis/Indication Diagnosis SNOMED-CT Code Diagnosis ICD10 Code Diagnosis Note [id number] Margot Crsytal MD [facility] [address] [place] [phone] 12/23/2023 11:15:42 12/23/2023 18:10:33 Viral upper respiratory tract infection 160409132 J06.9 Advised to stay hydrated, continue OTC cough med. May gargle with warm salt water. She requested something slightly stronger for cough. Is aware benzonatat e is not covered Health Concerns Section Related Observation LastModified by Organization Detai ls LastModified Time None Recorded Concern Status LastModified by Organization Details LastModified Time None Recorded Advance Directives Directive None Recorded Payers Encounter Date Sequence Insurance Name Policy Number Policy López Covered Member ID López Member ID Guarantor Name 12/23/2023 1 [facility] - DOS ON OR AFTER 2022 - DUAL ELIGIBLE - SENIOR LIVING OPTIONS AND ONE CARE (MEDICARE REPLACEMENT/ADV ANTAGE - HMO) Shari Delgadillo [id number] Shari Delgadillo Notes Date Note Type Note Provider Name and Address Organization Details Recorded Time 12/23/2023 text/html [facility] Nurse Triage Notes (Waldemar Gonzales): Chief Complaints: Shortness of Breath/Dyspnea Allergies: Unknown Comments: Hemodialysis Technician verified the member's name//address and phone number. Education provided on the response time and the member was advised to monitor reported s/s and seek emergency treatment if needed. Member is feeling unwell with a cough/cold and congestion - X3 days - Sore throat - Fever - Denies SOB - Denies CP - Member is speaking full sentences and breathing is non labored. Wellness check requestedSEGMD: patient's brother who lives with her has similar symptoms.-She has had no Tylenol. Max temp was 99.3. Blood sugar was 150 this morning. Patient has been taking Robitussin DM with some relief. She reports some itchiness to her right ear no discharge Travel Professional POC Test Results from [facility] - ALS Rapid COVID antigen (1) [12:24] COVID: - Rapid influenza antigen (1) [12:24] Flu: - Rapid strep test (1) [12:24] Strep: - .................. .................. .................. .................. .................. .................. .................. ............... Travel Professional Note From [facility]: [facility] visit for female patient with cough. 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 Pt reports 3 days of cough with some chest congestion. Cough largely dry and unproductive. Pt also reporting some throat pain with cough and itchiness in right ear. No fevers reported. Denies CP/SOB. Pt well appearing. V/S taken and WNL. Pt afebrile. Pt swabbed for flu covid and strep, all negative. Lung sounds clear bilaterally. Abdomen soft and non tender. Consulted with [facility] Dr. Crystal who prescribed benzonatate for cough. Reviewed red flags for ED. Pt education provided. .................. .................. .................. .................. .................. .................. .................. ............... Disposition: Fulfilled Margot Crystal MD [address] [facility],[address], [place], [phone], [employer] 12/23/2023 12:26:16 OBGyn Episode No OBEpisode recorded.
--- OUTSIDE RECORDS SUMMARY | 2024-08-08 06:23 | XMS_ITS ---
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 Name Role Phone Uri Salazar Primary Care Provider Bayron Caruso Unavailable [phone] Allergies No Known Allergies REASON FOR VISIT At Risk Footcare, Painful Nail(s) aggravated by shoes and causing difficulty standing/walking., ToeIrritation Medications Medication SIG (Take, Route, Frequency, Duration) Notes Start Date End Date Status Vitamin B12 Active Vitamin D Active Folic Acid Active Simvastatin Active Lisinopril Active Extra Depth Orthopedic Shoes, (1) Pair With (3) Pair Custom Heat Molded Multidensity Innersoles Dx: NIDDM/PVD(E11.51), Hammertoe Foot Deformity(M20.41,M20.42) , Preulcerative Skin Lesion(s)(L85.1) Wear Daily for 365 days 08/01/2024 Active Jardiance Active metFORMIN HCl Not-Ta hemal Social History Tobacco Use: Social History Observation [...] Are you an other tobacco user? No Problems Problem Type SNOMED Code ICD Code Onset Dates Problem Status W/U Status Risk Notes Problem Type 2 diabetes mellitus with peripheral angiopathy (904684285) Type 2 diabetes mellitus with diabetic peripheral angiopathy without gangrene (E11.51) Active confirmed Q7(A), Q8(2B), Q9(1B,2C) Problem Acquired hammer toe of right foot ([id number] 105) Other hammer toe(s) (acquired), right foot (M20.41) Active confirmed Problem Acquired hammer toe of left foot (9731615481153 103) Other hammer toe(s) (acquired), left foot (M20.42) Active confirmed Vital Signs Height 4 ft 5 in in 08/01/2024 Weight 104 lbs 08/01/2024 BMI 26.03 kg/m2 08/01/2024 Blood pressure systolic 120 mm Hg 08/01/20 24 Blood pressure diastolic 79 mm Hg 024 Procedures Procedure Date Ordered Date Performed Result Body Sit e 07297-WXZPHDW NAIL, 1-5 08/01/2024 N/A 00723-SRVP SKIN LESIONS, OVER 4 08/01/2024 N/A B8891-[id number] DYSTROPHIC NAILS ANY # 08/01/2024 N/A Encounters Encounter Location Date Provider Diagnosis [facility] [address] [place] [id number] 08/01/2024 Bayron Jim Type 2 diabetes mellitus with diabetic peripheral angiopathy without gangrene E11.51 ; Tinea unguium B35.1 ; Pain in right toe(s) M79.674 ; Pain in left toe(s) M79.675 ; Other hammer toe(s) (acquired), right foot M20.41 and Other hammer toe(s) (acquired), left foot M20.42 Assessments Encounter Date Diagnosis (ICD Code) Assessment Notes Treatment Notes Treatment Clinical Notes Section Notes 08/01/2024 Type 2 diabetes mellitus with diabetic peripheral angiopathy without gangrene (ICD-10 - E11.51) Q7(A), Q8(2B), Q9(1B,2C) 08/01/2024 Tinea unguium (ICD-10 - B35.1) 08/01/2024 Pain in right toe(s) (ICD-10 - M79.674) 08/01/2024 Pain in left toe(s) (ICD-10 - M79.675) 08/01/2024 Other hammer toe(s) (acquired), right foot (ICD-10 - M20.41) Patient Educated with: DIABETIC FOOT CARE INSTRUCTIONS.p df (DIABETIC FOOT CARE INSTRUCTIONS.p df) 08/01/2024 Other hammer toe(s) (acquired), left foot (ICD-10 - M20.42) Plan Of Treatment Medication Medication Name Sig Start Date Stop Date Notes Extra Depth Orthopedic Shoes , (1) Pair With (3) Pair Custom Heat Molded Multidensity Innersoles Dx: NIDDM/PVD(E11.51), Hammertoe Foot Deformity(M20.41,M20.42), Preulcerative Skin Lesion(s)(L85.1) Wear Daily for 365 days 08/01/2024 Treatment Notes Assessment Notes Other hammer toe(s) (acquired), right fo ot Patient Educated with: DIABETIC FOOT CARE INSTRUCTIONS.pdf (DIABETIC FOOT CARE INSTRUCTIONS.pdf) Pending Test Test Name Order Date [id number]-IDTEMQE NAIL, 1-5 08/01/2024 20772-IQFY SKIN LESIONS, OVER 4 08/01/20 24 N0998-AMWTZVDA DYSTROPHIC NAILS ANY # Next Appt Details Follow Up: 2.5 Months, Reaso n: Provider Name:Bayron Jim , 11/03/2024 01:30:00 PM, [address] [facility], [address], [place], [address], Procedure Notes * Category Sub-Category Detail Notes Keratoma Treatment Parring or Cutting o f Benign Hyperkeratotic Lesion(s) (-57) More than 4 Lesions - Due to the at risk nature of the patients medical condition as documented in the exam findings, performance of this keratoderma treatment is medically necessary as its management by an unskilled/untrained nonprofessional would put this patients foot and overall health at risk. Therefore, the benign hyperkeratotic lesions, ( 6) in total, locations as stated and described in the exam ( Medial, IPJ, TA, Medial, IPJ, T5, SUB MTH (s), 1, B/L, Plantar Heel(s), B/L), were pared, and/or cut utilizing a sterile 15 blade, tissue nippers, and/or power dremel instrumentation by the physician of record - 80412, Q8 Debride Nails 1-5 Procedure: Due to the cli nical pathology outlined in the exam findings, performance of this nail treatment is medically necessary as its management by an unskilled/untrained nonprofessional would put this patients foot and overall health at risk. Therefore, debridement to affected nail(s), as described in exam ( T2,T4, T8, T9), was performed exclusively by the physician of record to reduce/remove overall nail length, girth, thickness, subungual debris, and necrotic tissue, by manual and/or electrical means through the use of a nail nipper and/or dremel stylegrinder, to a more viable healthy nail plate or bed tissue 5 nails or fewer in number. Silver nitrate was used for any petechial bleeding as necessary. Definitive antifungal treatment options, both pharmaceutical and surgical, have been reviewed and discussed with the patient. The patient solely prefers the use of intermittent/as needed professional debridement services for their nail condition and understands that additional periodic treatments may be required as necessary to maintain effective symptomatic relief - 23712 Nail Reduction Nail Reduction (-27) Trimming o f all dystrophic nails - Due to the at risk nature of the patients medical condition as documented in the exam findings, performance of this nail treatment is medically necessary as its management by an unskilled/untrained nonprofessional would put this patients foot and overall health at risk. Therefore, the dystrophic nails, in locations as stated and described in the exam ( TA, T1, T3,T5, T6, T7), were debrided by the phisician of record to reduce/remove overall nail length and girth, by manual and electrical means with use of a nail nipper and/or dremel, to more viable healthy nail plate or bed tissue - G0127, Q8 Progress Notes * Shari DELGADILLO EDOB:1965 (59 yo F)Acc No.[id number]:08/01/2024 Progress Notes Patient:?Shari DELGADILLO Provider:?Bayron Jim DPM :1965???Age:59 Y???Sex:Female D ate:08/01/2024 Address:[address] [place], [place] [id number] Pcp:Uri Salazar Subjective: * Chief Complaints: * ???At Risk FootcarePainful N ail(s) aggravated by shoes and causing difficulty standing/walking.Toe Irritation * HPI: ???At Risk footcare:?Pt States Last PCP Visit:?Date?07/28/2024 ?Misc?Patient accompanied by, brother, Kristopher.?Toe pain:?Location:?B/L feet.?Duration:?several years.?Course:?worse.?Aggravated by:?shoes, any pressure.?Treatments:?change in shoes.? * ROS:?General/Constitutional:?Nausea?denies.?Vomiting?denies.?Hunger Thirst?denies.?Loss appetite?denies.?Chills?denies.?Fatigue?denies.?Fever?denies.?Night Sweats?denies.?Unexplained weight loss?denies.?Unexplained weight gain?denies.?HEENTM:?Dentures?denies.?Dizziness?denies.?Glasses/contacts?admits.?Retinopathy?den ies.?Blurred/double vision?denies.?TMJ?denies.?Discharge/drainage?denies.?Implants?denies.?Sore throat?denies.?Dental implants?denies.?Hard of hearing ?denies.?Difficulty chewing/swallowing/speaking?denies.?Nose bleeds?denies.?Sore mouth?denies.?Respiratory:?On O xygen?denies.?Pneumonia/pleurisy?denies.?Bronchitis?denies.?Emphysema?denies.?Co ughing?denies.?Cough blood?denies.?Shortness of breath?denies.?Wheezing?denies.?Cardiovascular:?Pacemaker?denies.?MVP?denies.?WPW?denies.?CHF?denies.?Heart attack?denies.?Septal defect?denies.?Rapid beat?denies.?Chest pain ?denies.?Atrial Fib.?denies.?Murmur/Palpitations?denies.?Gastrointestinal:?Hemorrhoids?denies.?Stomach/Abdominal pain?denies.?Dark blood stool?denies.?Irritable bowel ?denies.?Constipation?denies.?Diarrhea?denies.?Hematology:?Swelling?admits.?Clots?denies.?Varicose Veins?denies.?Bruising?denies.?Bleeding problem?denies.?Genitourinary:?Blood urine?denies.?Frequent/Painfu/urination/bladder control?denies.?Kidney stones?denies.?Infection (UTI)?denies.?Nephropathy?denies.?sex trans dis (STD)?denies.?Prostate?denies.?Musculoskeletal:?Hammertoes?admits.?Bunions?denies.?Back Pain?denies.?Muscle Cramps/ Resting?denies.?Muscle cramps / walking?denies.?Generalized aches and pains?denies.?Weakness?admits, that is generalized, bilateral upper extremities, bilateral lower extremities.?Integ.:?Clements?denies.?Scars?denies.?Corns/calluses?admits.?Ingrown nails?admits.?Painful nails?admits.?Open Sores?denies.?Rashes?admits.?Neurologic:?Difficulty sleeping?denies.?Brain disorder?denies.?Numbness?denies.?Balance t rouble?admits.?Confusion?denies.?Fainting/blackouts?denies.?Tingling?denies.?Jose Manuel mors?denies.? * Medical History:? * Surgical History:?Denies Pas t Surgical History * Hospitalization/Major Diagno stic Procedure:?Denies Past Hospitalization * Family History:?Mother: dece ased.?Father: .? * Social History:?Tobacco Use:?Tobacco Use/Smoking?Are you a:?nonsmoker ?Additional Findings: Tobacco Non-User?Current non-smoker ?Tobacco use other than smoking?Are you an other tobacco user??No ???Drugs/Alcohol:?Drugs?Have you used drugs other than those for medical reasons in the past 12 months??No ?Alcohol Screen?Did you have a drink containing alcohol in the past year??No ?Points?0 ?Interpretation?Negative ???Miscellaneous:?Caffeine: yes. ?Children: no. ?Exercise: no. ?Marital status: single. ?Occupation: disabled. * Medications:?TakingJardiance Lisinopril Folic Acid Simvastatin Vitamin B12 Vitamin D Taking Jardiance Taking Lisinopril Taking Folic Acid Taking Simvastatin Taking Vitamin B12 Taking Vitamin D Not-Taking/PRNmetFORMIN HCl Medication List reviewed and reconciled with the patientNot-Taking/PRN metFORMIN HCl Medication List reviewed and reconciled with the patient * Allergies:?N.K.D.A.yes[Aller gies Verified] Objective: * Vitals:?Ht: 4 ft 5 in, Wt:10 4, BMI:26.03, Shoe size: 3, BP:120/79mm Hg, BS: 123, Ht-cm: 134.62 cm, Wt-k.17 kg. * ???Past Orders: ???Lab:HEMOGLOBIN A1C (GLYCO HEMOGLOBIN) (Order Date - 07/28/2024) (Collection Date & Time - 07/28/2024 02:36 PM) ? Value Reference Range ?TOTAL HEMOGLOBIN (HGBA1C) 6.5 * Examination: ???Vascular: ?DP PULSES (B):? 0/4, B/L.?PT PULSES (B):? 0/4, B/L.?CAPILLARY FILL TIME:? delayed, all digits, B/L.?TROPHIC CONDITION-TEXTURE/ELASTICITY/TURGOR/HAIR GROWTH (B):? decreased, fragile, thin, shiny skin, with sparse to absent hair growth, B/L.?TEMPERTURE GRADIENT (C):? decreased, cool to cool, proximal to distal, B/L.?PIGMENTATION:?rubrous, B/L.?EDEMA (C):?1/4, pitting, without aching pain, Leg(s), B/L.?CLAUDICATION (C):?denies, B/L.?REST PAIN:?denies, B/L.?PARESTHESIA (C):?absent, B/L.?BURNING (C):?absent, B/L.?Nails: ?NAILS are:?Elongated, overgrown, dystrophic, lytic, greater than 3mm thick, discolored and friable with crumbly malodorous subungual debris, with pain on palpation ( T2,T4,?T8, T9, ), all other nails not described with characteristics as possessing mycosis are elongated, overgrown, and dystrophic ( TA, T1, T3,T5, T6, T7?).?Dermatologic: ?SKIN FINDINGS:?Skin exam reveals Keratotic lesion(s) located at, Medial, IPJ, TA, Medial, IPJ, T5, SUB MTH (s), 1, B/L, Plantar Heel(s), B/L.?Orthopedic: ?MUSCLE STRENGTH:?Generalized decrease in strength, B/L.?FOOT MORPHOLOGY:?(-) Charcot collapse/destruction noted at IDJ.?DIGITAL DEFORMITIES:?Digital contracture, PIPJ, 2-5 B/L, incompl-reducible to push-up test, no over, nor underlapping,?there is?evidence of shoe producing skin irritation.?FOOTWEAR:?worn, non-supportive, shoe gear properties exacerbate patient's foot/toe deformity.?Neurological: ?SENSORY:?Neurological exam reveals intact sensorium, pain sensation normal, vibration sensation intact, pinprick sensation is normal in the lower extremities, 5.07 monofilament test performed at plantar aspects of 5 varied sites per foot shows sensation, normal, B/L, Pt denies, anesthesia, burning, paresthesia, tingling, B/L.?Ophthalmology Referral: ?DIABETES EYE EXAM?General Examination: ?GENERAL APPEARANCE:?Reveals a pleasant, alert, well nourished, well- developed, well hydrated individual, who demonstrates proper attention to hygiene/body habitus, and is in no acute distress, Pt serves as own historian for office visit today, Pt accompanied by, brother, Kristopher,?and/who is physically present in exam room at time of visit.?ORIENTED:?person, place, and time.?FOOT EXAM:?Footwear Evaluation? Assessment: * Assessment: 1.?Tinea unguium - B35.1???2 .?Type 2 diabetes mellitus with diabetic peripheral angiopathy without gangrene - E11.51 (Primary)???Notes :Q7(A), Q8(2B), Q9(1B,2C)???3.?Pain in right toe(s) - M79.674???4.?Pain in left toe(s) - M79.675???5.?Other hammer toe(s) (acquired), right foot - M20.41???Specify :Chronic problem, Worse (4),Rx Management (4)???6.?Other hammer toe(s) (acquired), left foot - M20.42???Specify :Chronic problem, Worse (4),Rx Management (4)??? Plan: * Treatment: 2.?Tinea unguium?Procedure: 14233-NVGUTVV NAIL, 1-5 3.?Other hammer toe(s) (acqu ired), right foot? Start Extra Depth Orthopedic Shoes, (1) Pair ., With (3) Pair Custom Heat Molded Multidensity Innersoles, Dx: NIDDM/PVD(E11.51), Hammertoe Foot Deformity(M20.41,M20.42), Preulcerative Skin Lesion(s)(L85.1), Wear, Daily, 365 days, 2, Refills 0.?? Notes: Patient Educated with: DIABETIC FOOT CARE INSTRUCTIONS.pdf (DIABETIC FOOT CARE INSTRUCTIONS.pdf)?? * Procedures:?Debride Nails 1-5:?Procedure:?Due to the clinical pathology outlined in the exam findings, performance of this nail treatment is medically necessary as its management by an unskilled/untrained nonprofessional would put this patients foot and overall health at risk. Therefore, debridement to affected nail(s), as described in exam (?T2,T4, T8, T9), was performed exclusively by the physician of record to reduce/remove overall nail length, girth, thickness, subungual debris, and necrotic tissue, by manual and/or electrical means through the use of a nail nipper and/or dremel stylegrinder, to a more viable healthy nail plate or bed tissue 5 nails or fewer in number. Silver nitrate was used for any petechial bleeding as necessary. Definitive antifungal treatment options, both pharmaceutical and surgical, have been reviewed and discussed with the patient. The patient solely prefers the use of intermittent/as needed professional debridement services for their nail condition and understands that additional periodic treatments may be required as necessary to maintain effective symptomatic relief - 06608.?Keratoma Treatment:?Parring or Cutting of Benign Hyperkeratotic Lesion(s)?(-57) More than 4 Lesions - Due to the at risk nature of the patients medical condition as documented in the exam findings, performance of this keratoderma treatment is medically necessary as its management by an unskilled/untrained nonprofessional would put this patients foot and overall health at risk. Therefore, the benign hyperkeratotic lesions, ( 6) in total, locations as stated and described in the exam (?Medial,?IPJ,?TA,?Medial,?IPJ,?T5,?SUB MTH (s),?1,?B/L,?Plantar Heel(s),?B/L), were pared, and/or cut utilizing a sterile 15 blade, tissue nippers, and/or power dremel instrumentation by the physician of record - 23635, Q8.?Nail Reduction:?Nail Reduction?(-27) Trimming of all dystrophic nails - Due to the at risk nature of the patients medical condition as documented in the exam findings, performance of this nail treatment is medically necessary as its management by an unskilled/untrained nonprofessional would put this patients foot and overall health at risk. Therefore, the dystrophic nails, in locations as stated and described in the exam ( TA, T1, T3,T5, T6, T7), were debrided by the phisician of record to reduce/remove overall nail length and girth, by manual and electrical means with use of a nail nipper and/or dremel, to more viable healthy nail plate or bed tissue - G0127, Q8.? * Procedure Codes:?G0127 ARMIDA ING DYSTROPHIC NAILS ANY #, Modifiers: XS , [id number] DEBRIDE NAIL, 1-5, Modifiers: XS 53577 TRIM SKIN LESIONS, OVER 4, Modifiers: XS , Q8 * Preventive Medicine:? ??Counseling:?Discussion:?-04: Office or other outpatient visit for the evaluation and management of a new patient, which required a medically appropriate history and/or examination and MODERATE level of DECISION MAKING for: 1 OR MORE CHRONIC PROBLEM(S) THATS WORSENING, 2 STABLE CHRONIC PROBLEMS, A NEWLY DIAGNOSED PROBLEM WITH UNCERTAIN PROGNOSIS, AN ACUTE COMPLICATED INJURY WITH MULTIPLE TREATMENT OPTIONS, OR AN ACUTE PROBLEM WITH ACCOMPANYING SYSTEMIC SYMPTOMS, THAT POSE(S) A MODERATE RISK OF MORBIDITY. THIS CONDITION MAY ALSO INCLUDE RX DRUG MANAGEMENT, OR A DECISON FOR MINOR SURGERY. The visit on the day of the encounter encompassed interpreting the data and educating the patient as to the nature of their condition, treatment options available according to their individual PMH, meds, allergies, and overall health/living conditions, as well as any potential risks or complications that may occur from a failure to adhere to, and participate in, the recommended course of therapy. The discussion included a complete verbal, and/or written explanation of the examination results, any x-rays taken, the proposed diagnosis, and outline of the treatment plan. A schedule for future care needs was also explained. The patient verbalized an understanding of the instructions at this time and agreed to be an active participant in their treatment. If the patient should think of any questions or concerns after the visit, I have encouraged the patient to call the office.?Digital Surgery:?Digital surgery was discussed with the patient, We elected to try conservative treatment at the present time, due to the patients medical history and increased asssociated post-operative risks.?Digital Treatment:?HT- I explained to the patient the possible etiologies of Hammertoes, including genetics/foot type/shoegear/activity level/exercise routine and the risks/benefits of all the different treatment options for their pain including: No treatment at all, Rest, Ice, New/supportive/wider/deeper Shoegear, Digital Padding/Strapping/Taping/Bracing/Gel protective sleeves, Foot/Ankle AFO Bracing, Stretching exercises, Deep Tissue Massage, Arch support/shoe inserts with splay metatarsal padding, and Custom orthoses. I insisted that any digital devices be removed daily and not worn overnight for safety. The patient is to carefully examine the toes daily for any skin irritation while using any splinting or padding device. The advantages and disadvantages of each option were discussed and the patients questions re: shoegear, padding, custom vs prefabricated inserts, activity level, and consistency in home treatment regimens for optimal success were answered to their verbally confirmed satisfaction.?Shoe Gear Counseling:?SHOE Rx - The patient was counseled in great detail on their muscoloskeletal foot and toe deformities which coincided with the dermatological presentations visualized on exam. We discussed how their deformities put the integrity of their feet at risk for potential pedal complications which makes the accomidative diabetic shoes and cutomizable inserts medically necessary. We discussed the different shoe and insert treatment types and options, as well as the important advantages for adhering to regularly wearing these accomidative devices daily. The patient was made aware of the fact that a failure to abide by these recommedations may be deleterious to their foot health as they are able to prevent many pedal complications such as skin irritation, skin ulceration, infection, and even loss of toe/foot/leg/or life. Time was also spent with the patient dispensing and discussing proper diabetic footcare techniques including daily skin moisturization, daily foot inspection for any interruption in skin integrity including open lesions, or sign of infection such as redness/malodor/drainage/swelling. Also discussed and recommended were procedures regarding daily shoe inspection for the presence of internal foreign bodies as well as any visualized irregular shoe or insert wear. Patient questions re: shoes, inserts, and self foot inspections were answered to their satisfaction as the patient verbally confirmed a full understanding of the above information. A Rx for Extra Depth Orthopedic Shoes with 3 pair of custom heat-molded inserts was dispensed.? * Follow Up:?2.5 Months * Images: * Sign off status: Completed true * Provider:?Bayron Jim DPM Date:?2023 Generated for Gini rivera/Pasha/Bertin on:?08/08/2024 06:23 AM EST History and Physical Notes * HPI (History of Present Illness) Category Sub-Category Detail Notes Category Not es Toe pain Location: B/L feet Duration: several years Course: worse Aggravated by: shoes, any pressure Treatments: change in shoes At Risk footcare Pt States Last PCP Visit: Date: 4 [facility] [place] Patient accompanied by, brotherKristopher Examination Category Sub-Category Detail Notes Category Not es Neurological SENSORY: Neurological exa m reveals intact sensorium, pain sensation normal, vibration sensation intact, pinprick sensation is normal in the lower extremities, 5.07 monofilament test performed at plantar aspects of 5 varied sites per foot shows sensation, normal, B/L, Pt denies, anesthesia, burning, paresthesia, tingling, B/L Dermatologic SKIN FINDINGS: Skin exam reveal s Keratotic lesion(s) located at, Medial, IPJ, TA, Medial, IPJ, T5, SUB MTH (s), 1, B/L, Plantar Heel(s), B/L Orthopedic FOOT MORPHOLOGY: (-) Charcot col lapse/destruction noted at MTJ FOOTWEAR: worn, non-supportive , shoe gear properties exacerbate patient's foot/toe deformity DIGITAL DEFORMITIES: Digital contracture , PIPJ, 2-5 B/L, incompl-reducible to push-up test, no over, nor underlapping, there is evidence of shoe producing skin irritation MUSCLE STRENGTH: Generalized decrease in strength, B/L General Examination GENERAL APPEARANCE: Reveals a pleasant, alert, well nourished, well-developed, well hydrated individual, who demonstrates proper attention to hygiene/body habitus, and is in no acute distress, Pt serves as own historian for office visit today, Pt accompanied by, brother, Kristopher, and/who is physically present in exam room at time of visit FOOT EXAM: Lower Extremity Neurological Exa m performed:: Yes Date: 08/01/2024 ORIENTED: person, place, and t jason Footwear Evaluation Footwear Evaluation performe d:: Yes Ophthalmology Referral DIABETES EYE EXAM Procedure Perform ed:: Yes ?Date of Exam Performed: 09/03/2023 Diabetic Retinopathy Screening:: Yes Retinal Screening Performed:: Yes Findings of Diabetic Eye Exam:: no retin opathy Vascular DP PULSES (B): 0/4, B/L PT PULSES (B): 0/4, B/L CAPILLARY FILL TIME: delayed, all digits , B/L TEMPERTURE GRADIENT (C): decreased, cool to cool, proximal to distal, B/L TROPHIC CONDITION-TEXTURE/ELASTICITY/TURGOR/HAIR GROWTH (B): decreased, fragile, thin, shiny skin, wi th sparse to absent hair growth, B/L EDEMA (C): 1/4, pitting, withou t aching pain, Leg(s), B/L CLAUDICATION (C): denies, B/L REST PAIN: denies, B/L PIGMENTATION: rubrous, B/L PARESTHESIA (C): absent, B/L BURNING (C): absent, B/L Nails NAILS are: Elongated, overg rown, dystrophic, lytic, greater than 3mm thick, discolored and friable with crumbly malodorous subungual debris, with pain on palpation ( T2,T4, T8, T9, ), all other nails not described with characteristics as possessing mycosis are elongated, overgrown, and dystrophic ( TA, T1, T3,T5, T6, T7 )
--- OUTSIDE RECORDS SUMMARY | 2024-08-08 06:24 | XMS_ITS | Patient Health Record ---
Author Organization [facility] Address [address] [place] [address] Care Team Providers Care Ldr Rn Name Role Phone Uri Salazar Primary Care Provider Bayron Caruso Unavailable [phone] Allergies No Known Allergies Results Component Value Reference Range Notes HEMOGLOBIN A1C (GLYCOHEMOGLO BIN) Reviewed date:08/01/2024 02:36:57 PM Interpretation: Performing Lab: Notes/Report: TOTAL HEMOGLOBIN (HGBA1C) 6.5 Reason For Referral No Information Medications Medication SIG (Take, Route, Frequency, Duration) Notes Start Date End Date Status Vitamin B12 Active Vitamin D Active Extra Depth Orthopedic Shoes, (1) Pair With (3) Pair Custom Heat Molded Multidensity Innersoles Dx: NIDDM/PVD(E11.51), Hammertoe Foot Deformity(M20.41,M20.42) , Preulcerative Skin Lesion(s)(L85.1) Wear Daily for 365 days 08/01/2024 Active Jardiance Active Folic Acid Active Simvastatin Active metFORMIN HCl Not-Ta hemal Lisinopril Active Social History Tobacco Use: Social History Observation [...] Problem Status W/U Status Risk Notes Problem Acquired hammer toe of right foot (2877440502628 105) Other hammer toe(s) (acquired), right foot (M20.41) Active confirmed Problem Acquired hammer toe of left foot (0860399487966 103) Other hammer toe(s) (acquired), left foot (M20.42) Active confirmed Problem Type 2 diabetes mellitus with peripheral angiopathy (980248068) Type 2 diabetes mellitus with diabetic peripheral angiopathy without gangrene (E11.51) Active confirmed Q7(A), Q8(2B), Q9(1B,2C) Vital Signs Blood pressure diastolic 79 mm Hg 08/01/2024 Height 4 ft 5 in in 08/01/2024 Blood pressure systolic 120 mm Hg 08/01/2024 Weight 104 lbs 08/01/2024 BMI 26.03 kg/m2 08/01/2024 Procedures Procedure Date Ordered Date Performed Result Body Sit e 28476-FEHFPMO NAIL, 1-5 08/01/2024 N/A 05554-NFKM SKIN LESIONS, OVER 4 08/01/2024 N/A L7430-MVKUQBLW DYSTROPHIC NAILS ANY # 08/01/2024 N/A Encounters Encounter Location Date Provider Diagnosis [facility] [address] [address] 08/01/2024 Bayron Jim Type 2 diabetes mellitus with diabetic peripheral angiopathy without gangrene E11.51 ; Tinea unguium B35.1 ; Pain in right toe(s) M79.674 ; Pain in left toe(s) M79.675 ; Other hammer toe(s) (acquired), right foot M20.41 and Other hammer toe(s) (acquired), left foot M20.[address] [facility] [address] 04/13/2024 [facility] [address] 05/11/2024 Bayron Jim Assessments Encounter Date Diagnosis (ICD Code) Assessment Notes Treatment Notes Treatment Clinical Notes Section Notes 08/01/2024 Tinea unguium (ICD-10 - B35.1) 08/01/2024 Type 2 diabetes mellitus with diabetic peripheral angiopathy without gangrene (ICD-10 - E11.51) Q7(A), Q8(2B), Q9(1B,2C) 08/01/2024 Pain in right toe(s) (ICD-10 - M79.674) 08/01/2024 Pain in left toe(s) (ICD-10 - M79.675) 08/01/2024 Other hammer toe(s) (acquired), right foot (ICD-10 - M20.41) Patient Educated with: DIABETIC FOOT CARE INSTRUCTIONS.p df (DIABETIC FOOT CARE INSTRUCTIONS.p df) 08/01/2024 Other hammer toe(s) (acquired), left foot (ICD-10 - M20.42) Plan Of Treatment Pending Test Test Name Order Date 41326-ZDSBKRO NAIL, 1-5 08/01/2024 93580-LQWD SKIN LESIONS, OVER 4 08/01/20 24 L9372-AYTFCAKD DYSTROPHIC NAILS ANY # Next Appt Details Provider Name:Bayron Jim , 11/03/2024 01:30:00 PM, [address] [facility], [address], [place], [address], Insurance Providers Payer Name Payer Address Payer Phone Subscriber Number Group Number Insured Name Patient Relationship to Insured Coverage Start Date Coverage End Date [facility] Adv [address] [place] [id number] Shari Delgadillo Self - patient is the insured Medical (General) History Medical History History ICD Code covid-19 Diabetic High Blood Pressure Cerebral palsy Hypercholesterolemia
[2024-08-08 08:56] LABS: Appearance Urine Hazy; Color Urine Yellow; Glucose Urine UA >=1000 mg/dL (Negative); Leukocyte Esterase Urine Negative (Negative); Nitrite Urine Negative (Negative); Specific Gravity - Urine >= 1.030 (1.005-1.025); UMIC TRIGGER UACC YES; Urine Blood Small (1+) (Negative); Urine Ketones Negative (Negative); Urine Protein Negative (Neg-Trace)
[2024-08-08 09:02] LABS: Bacteria Urine 1+ (None Seen); Hyaline Casts Urine 0-2 /LPF (0-2); UACC Culture Trigger YES; WBC Urine 21-50 /HPF (0-5)
== END 2024-08-08 06:12 | disposition home or self-care (01) ==
LOC: HO.XRAY 06:11
PROVIDERS: PCP Internal Medicine; Visit Provider Internal Medicine
DX: M25.561 Pain in right knee (principal); R30.0 Dysuria; R82.90 Unspecified abnormal findings in urine
CPT/HCPCS: 73560; 81001; 87086; 87147

== ENCOUNTER → 2024-08-08 07:36 | Outpatient (BNV) | payer OTHER, SELFPAY | PROVIDERS: PCP Internal Medicine; Visit Provider Radiology Diagnostic Radiology | DX: M25.561 Pain in right knee (principal) | CPT/HCPCS: 73560 ==

== ENCOUNTER 2024-09-07 07:24 | Outpatient (REF) | payer OTHER, SELFPAY ==
--- NOTE | ~2024-09-07 | XR_ITS ---
EXAMINATION: XR KNEE, RIGHT CLINICAL INFORMATION: M25.569 - Pain in unspecified knee COMPARISON: Right knee radiographs 08/08/2024. TECHNIQUE: AP bilateral knees standing, right sunrise view. FINDINGS: There is osteopenia. No fracture, dislocation, or suspicious bone lesion. Severe medial lateral compartment joint space narrowing right knee, with medial compartment rkji-wn-uvga appearance. This may be partially accentuated by projection. Mild hypertrophic osteophytic spurs medially. Appears to be mild varus angulation of the right knee joint. Relatively preserved patellofemoral compartment. No soft tissue abnormality. XR/XR knee RT 2V IMPRESSION: Severe joint space loss medial greater than lateral compartments, with mild varus angulation of the joint. Relatively preserved patellofemoral joint space. Electronically signed by: Jamey Ricardo MD 09/07/2024 02:09 PM THEO
--- OUTSIDE RECORDS SUMMARY | 2024-09-07 07:26 | XMS_ITS | Data Portability ---
Author Organization [facility], [facility] Address [address] [place] [address] Care Team Providers Care Delivery Assistant Name Role Phone HIM CCA OTHER Assessment Encounter Date Assessment Date Assessment LastModified by Organization Details LastModified Time 12/23/2023 12/23/2023 I provided real -time medical direction via phone for this encounter, and was available for additional phone based assistance as needed. I have reviewed and agree with the Assessment and Plan as documented by the Decaler. We discussed the diagnostic uncertainty of home [...] to call 911- verbalized understanding of instruction [email or web address] Not available 12/23/2023 11:33:30 Plan of Treatment Reminders Order Date Submit Date Provider Last Modified By Organization Details Last Modified Time Details Appointments None recorded. Lab rapid SARS CoV 2 Ag, QL IA, respiratory specimen 2023 024 [email or web address] 0 [facility], [address] [place] [address], [address], 4 11:35:44 rapid strep group A, throat 2023 024 [email or web address] 0 [facility], [address] [place] [address], [phone], 4 11:35:45 rapid flu (A+B) 2023 024 [email or web address] 0 [facility], [address] [place] [address], [phone], 11:35:42 Referral None recorded. Procedures None recorded. Surgeries None recorded. Imaging None recorded. Medication Orders benzonatate 100 mg capsule 2023 024 [id number], [address] [place], [place], [phone], 11:35:55 Patient TargetsNo targets recorded. Patient InstructionsNo instructions recorded. Reason for Referral None Reported. Results Created Date Observation Date Name Description Value Unit Range Abnormal Flag Note LastModifiedBy Organization Detail LastModifiedTime 12/23/19 24 12/23/2023 rapid flu (A+B) Flu negati ve Not Available [facility] ed [address] [place] [address], [phone], 12/23/2023 11:33:56 12/23/19 24 12/23/2023 rapid strep group A, throa t Strep negati ve Not Available [facility] ed [address] [place] [address], [phone], 12/23/2023 11:33:51 12/23/19 24 12/23/2023 rapid SARS CoV 2 Ag, QL IA, respi rator y speci men rapid SARS CoV 2 Ag, QL IA, respiratory specimen negati ve Not Available [facility] ed [address] [place] [address], [address], 12/23/2023 11:33:38 Result Notes None recorded. Medical [...] cm 97 % 97 % 86 /min 79209.8 56 g 16 /min 132 mm[Hg] 74 [...] SNOMED-CT Code Diagnosis ICD10 Code Diagnosis Note 20992 Margot Crystal MD Main - [facility] [address] [place] [phone] 12/23/2023 11:15:42 12/23/2023 18:10:33 Viral upper respiratory tract infection [id number] J06.9 Advised to stay hydrated, continue OTC [...] López Member ID Guarantor Name 12/23/2023 1 [facility] - DOS ON OR AFTER 2022 - DUAL ELIGIBLE - [facility] OPTIONS AND ONE CARE (MEDICARE REPLACEMENT/ADV ANTAGE - HMO) Shari Delgadillo [id number] Shari Delgadillo Notes Date Note Type Note Provider Name and Address Organization Details Recorded Time 12/23/2023 text/html [facility] Nurse Triage Notes (Waldemar Gonzales): Chief Complaints: Shortness of Breath/Dyspnea Allergies: Unknown Comments: Paint Spray Tender verified the member's name//address and phone number. [...] itchiness to her right ear no discharge Decaler POC Test Results from Frank Gray - ALS Rapid COVID antigen (1) [12:24] COVID: - Rapid influenza antigen (1) [12:24] Flu: - Rapid strep test (1) [12:24] Strep: - .................. .................. .................. .................. .................. .................. .................. ............... Decaler Note From Frank Gray: Smartcare visit for female patient with cough. Pt presents at home on couch in company of brother/HCP and PLANT FLOOR AUTOMATION MANAGER. Pt reports 3 days of cough with some chest congestion. Cough largely dry and unproductive. Pt also reporting some throat pain with cough and itchiness in right ear. No fevers reported. Denies CP/SOB. Pt well appearing. V/S taken and WNL. Pt afebrile. Pt swabbed for flu covid and strep, all negative. Lung sounds clear bilaterally. Abdomen soft and non tender. [place] with [facility] [place] Crystal who prescribed benzonatate for cough. Reviewed red flags for ED. Pt education provided. .................. .................. .................. .................. .................. .................. .................. ............... Disposition: Fulfilled Margot Crystal MD [address] [facility],[address], [place], [address], [employer] 12/23/2023 12:26:16 OBGyn Episode No OBEpisode recorded.
== END 2024-09-07 07:25 | disposition home or self-care (01) ==
LOC: HO.HOSX 07:24
PROVIDERS: Visit Provider Physician Assistant
DX: M17.11 Unilateral primary osteoarthritis, right knee (principal)
CPT/HCPCS: 73560; 99212

== ENCOUNTER 2024-09-07 11:19 | Outpatient (AMB) | payer OTHER, SELFPAY ==
--- NOTE | 2024-09-07 11:48 | MHC.OFFVIS ---
Intake Visit Reasons: New prob- Right knee pain Intake Note: Shari is a 59 year old female who presents today in a wheel chair and with her brother for a new patient evaluation of right knee pain. No hx of injury. Patient reports off and on of her knee buckling for about a year. No pain at the moment. Patient hasn't tried any knee braces. Allergies No Known Allergies Allergy (Verified 09/07/24 11:50) Medication List - Last Reconciled 09/07/24 by Rebecca Mathias PA-C amoxicillin 2,000 mg PO 1 hour before procedure; blood sugar diagnostic (FreeStyle Lite Strips) As directed TID for blood glucose testing blood-glucose meter (FreeStyle Lite Meter kit) As directed cholecalciferol (vitamin D3) 25 mcg PO DAILY clotrimazole 1% 1 appl topical BID 4 weeks compress.stocking,knee,reg,med As directed 20-30 mm HG cyanocobalamin (vitamin B-12) 1,000 mcg PO DAILY empagliflozin (Jardiance) 10 mg PO DAILY fluconazole Change prescription to 1 and half tablets 1st day and then repeat in 3 days folic acid 1 mg PO DAILY ketoconazole 2% 1 appl topical BID lancets (FreeStyle Lancets) 28 gauge topical TID 90 days lisinopril 10 mg PO DAILY metronidazole 1% (Metrogel) 1 appl topical BEDTIME miconazole nitrate 2% (Zeasorb AF) 1 appl topical DAILY nystatin (Nystop) 1 appl topical TID PRN simvastatin 40 mg PO DAILY HPI HPI New prob- Right knee pain: Details: 59-year-old female presents to the office today for right knee pain. She has a history of cerebral palsy and is primarily in a wheelchair but she does use assistance for when she gets up and ambulates. She states her left leg is the worst leg and feels her right knee pain has developed for over compensation. [facility] Medical History (Updated 09/07/24 @ 13:15 by Rebecca Mathias PA-C) Impacted cerumen of both ears Annual physical exam Encounter for annual routine gynecological examination Colon cancer screening Avulsion fracture of metatarsal bone of left foot with routine healing Injury of right great toe Cerebral palsy Hypercholesterolemia Rosacea Hypertension Vitamin D deficiency Peripheral vascular disease Type 2 diabetes mellitus with hyperglycemia Surgical History History of brain shunt Family History Father Medical history unknown Mother Brain cancer Diabetes Hypertension Paternal Uncle Cancer Social History Housing: House Alcohol intake: never Patient Tobacco Use Status: Never used Tobacco e-Cigarette/Vaping Use: Never Used Second Hand Smoke Exposure: No service: No Current occupational status: disabled Cognitive needs: No Hearing needs: No Vision needs: No Review of Systems Const All systems reviewed & are unremarkable except as noted in HPI and below Physical Exam Const General: cooperative and no acute distress Orientation/consciousness: patient oriented x3 Resp Effort & Inspection: normal respiratory effort and able to speak in complete sentences Cardio Peripheral pulses: Peripheral pulses 2+ throughout Neuro General: patient oriented x3 Extrem Other: Right knee skin intact, no erythema or joint effusion. Mild retropatellar tenderness. ROM full with crepitus. Negative steinmans. No ligamentous laxity. NVI. Results Reviewed Results Reviewed: Xrays were obtained in the office today and personally reviewed by me of the right knee show mild oa with varus deformity. Assessment & Plan Assessment & Plan (1) Patellofemoral arthritis of right knee: Code(s): M17.11 - Unilateral primary osteoarthritis, right knee Category: Medical (2) Varus deformity of knee: Code(s): M21.169 - Varus deformity, not elsewhere classified, unspecified knee Category: Medical Plan Discussed options which include physical therapy which the patient is agreeable upon. Due to her cerebral palsy she is unable to drive and has difficulty getting in and out of the house due to her poor gait mechanics. Therefore I recommend home VNA therapy services. They should work on gait training range of motion and strengthening exercises. If symptoms persist or worsen she will contact our office otherwise follow up as needed. Orders: Orders XR knee RT 2V Today M25.569 - Pain in unspecified knee XR knee LT 1V Today M25.562 - Pain in left knee Coding Level of Care Code Est Pt Level 3 (57098) Complex EM visit Add On G2211 Diagnoses Patellofemoral arthritis of right knee M17.11 Varus deformity of knee M21.169
== END 2024-09-07 12:04 | disposition home or self-care (01) ==
PROVIDERS: PCP Internal Medicine; Visit Provider Physician Assistant
DX: M17.11 Unilateral primary osteoarthritis, right knee (principal); M21.169 Varus deformity, not elsewhere classified, unspecified knee
CPT/HCPCS: 99213

== ENCOUNTER → 2024-09-07 11:21 | Outpatient (BNV) | payer OTHER, SELFPAY | PROVIDERS: Visit Provider Radiology Diagnostic Radiology | DX: M25.561 Pain in right knee (principal) | CPT/HCPCS: 73560 ==

== ENCOUNTER 2024-10-17 12:00 | Outpatient (REF) | payer OTHER, SELFPAY ==
--- OUTSIDE RECORDS SUMMARY | 2024-10-17 14:14 | XMS_ITS ---
Author Organization [facility] Address [address] [place] [address] Care Team Providers Care Wood Box Maker Name Role Phone Uri Salazar Primary Care Provider Bayron Caruso [phone] REASON FOR VISIT TEST RACK OPERATOR Encounters Encounter Location Date Provider Diagnosis [facility] [address] [place] [address] 04/13/2024 Bayron Jim Plan Of Treatment Next Appt Details Provider Name:Bayron Jim , 11/03/2024 01:30:00 PM, [address] [facility], [address], [address], Progress Notes * Kelly DELGADILLODOB:1965 ([age] yo F)Acc No.[id number]:04/13/2024 Patient:?Kelly Delgadillo :1965???Age:58 Y???Sex:Female Address:[address] [place] [address] * true * Date:? Generated for Printi ng/Faceg/eTransmitting on:?10/17/2024 02:14 PM EDT
--- OUTSIDE RECORDS SUMMARY | 2024-10-17 14:14 | XMS_ITS ---
Author Organization [facility] Address [address] [place] [address] Care Team Providers Care Chip Tester Name Role Phone Uri Salazar Primary Care Provider Bayron Caruso [phone] REASON FOR VISIT LIQUOR BLENDER PPWK Entered Encounters Encounter Location Date Provider Diagnosis [facility] [address] [place] [address] 05/11/2024 Bayron Jim Plan Of Treatment Next Appt Details Provider Name:Bayron Jim , 11/03/2024 01:30:00 PM, [facility] [address], [address], Progress Notes * Shari DELGADILLO EDOB:1965 (58 yo F)Acc No.[id number]:05/11/2024 Patient:?Shari Delgadillo :1965???Age:58 Y???Sex:Female Address:[address] [place] [address] * true * Date:? Generated for Kaitlynni miguel/Pasha/eTransmitting on:?10/17/2024 02:14 PM EDT
--- OUTSIDE RECORDS SUMMARY | 2024-10-17 14:15 | XMS_ITS | Patient Health Record ---
Author Organization [facility] Address [address] [facility] [place] [address] Care Team Providers Care Outbound Supervisor Name Role Phone Uri Salazar Primary Care Provider Bayron Caruso Unavailable [phone] Allergies No Known Allergies Results Component Value [...] Problem Acquired hammer toe of right foot (3746714098324 105) Other hammer toe(s) (acquired), right foot (M20.41) Active confirmed Problem Acquired hammer toe of left foot (3896021505429 103) Other hammer toe(s) (acquired), left foot (M20.42) Active confirmed Problem Type 2 diabetes mellitus with peripheral angiopathy (269479623) Type 2 diabetes mellitus with diabetic peripheral angiopathy without gangrene (E11.51) Active confirmed Q7(A), Q8(2B), Q9(1B,2C) Vital Signs Blood pressure diastolic 79 mm Hg 08/01/2024 Height 4 ft 5 in in 08/01/2024 Blood pressure systolic 120 mm Hg 08/01/2024 Weight 104 lbs 08/01/2024 BMI 26.03 kg/m2 08/01/2024 Procedures Procedure Date Ordered Date Performed Result Body Sit e 85683-DXAOQDA NAIL, 1-5 08/01/2024 N/A 57543-HZKQ SKIN LESIONS, OVER 4 08/01/2024 N/A J9072-YGPMUMII DYSTROPHIC NAILS ANY # 08/01/2024 N/A Encounters Encounter Location Date [facility] [address] [address] 08/01/2024 Bayron Jim Type 2 diabetes mellitus with diabetic peripheral angiopathy without gangrene E11.51 ; Tinea unguium B35.1 ; Pain in right toe(s) M79.674 ; Pain in left toe(s) M79.675 ; Other hammer toe(s) (acquired), right foot M20.41 and Other hammer toe(s) (acquired), left foot M20.[address] [facility] [address] 04/13/[address] [facility] [address] [address] 05/11/2024 Bayron Jim Assessments Encounter Date Diagnosis [...] Treatment Pending Test Test Name Order Date 18350-BWJQVBG NAIL, 1-5 08/01/2024 54977-XSST SKIN LESIONS, OVER 4 08/01/20 24 D5465-ZEBKOHSU DYSTROPHIC NAILS ANY # Next Appt Details Provider Name:Bayron Jim , 11/03/2024 01:30:00 PM, [address] [facility], [address], [place], [address], Insurance Providers Payer Name Payer Address Payer Phone Subscriber Number Group Number Insured Name Patient Relationship to Insured Coverage Start Date Coverage End Date [facility] Adv [address] [place] [id number] Shari Delgadillo Self - patient is the insured Medical (General) History Medical History History ICD Code covid-19 Diabetic High Blood Pressure Cerebral palsy Hypercholesterolemia
--- OUTSIDE RECORDS SUMMARY | 2024-10-17 14:15 | XMS_ITS | Data Portability ---
Author Organization [facility] Address [address] [place] [address] Care Team Providers Care Programming Development Project Manager Name Role Phone HIM CCA OTHER Assessment Encounter Date Assessment Date Assessment LastModified by Organization Details LastModified Time 12/23/2023 12/23/2023 I provided real -time medical direction via phone for this encounter, and was available for additional phone based assistance as needed. I have reviewed and agree with the Assessment and Plan as documented by the [facility] Psychiat[facility]. We discussed the diagnostic uncertainty of home [...] to call 911- verbalized understanding of instruction [email or web address] Not available 12/23/2023 11:33:30 Plan of Treatment Reminders Order Date Submit Date Provider Last Modified By Organization Details Last Modified Time Details Appointments None recorded. Lab rapid SARS CoV 2 Ag, QL IA, respiratory specimen 2023 024 [email or web address] 0 [facility], [address] [place] [address], [address], 4 11:35:44 rapid strep group A, throat 2023 024 [email or web address] 0 [facility], [address] [place] [address], [address], 4 11:35:45 rapid flu (A+B) 2023 024 [email or web address] 0 [facility], [address] [place] [address], [address], 11:35:42 Referral None recorded. Procedures None recorded. Surgeries None recorded. Imaging None recorded. Medication Orders benzonatate 100 mg capsule 2023 024 [id number], [address] [place], [place], [phone], 11:35:55 Patient TargetsNo targets recorded. Patient InstructionsNo instructions recorded. Reason for Referral None Reported. Results Created Date Observation Date Name Description Value Unit Range Abnormal Flag Note LastModifiedBy Organization Detail LastModifiedTime 12/23/19 24 12/23/2023 rapid flu (A+B) Flu negati ve Not Available [facility] ed [address] [place] [address], [address], 12/23/2023 11:33:56 12/23/19 24 12/23/2023 rapid strep group A, throa t Strep negati ve Not Available [facility] ed [address] [place] [address], [address], 12/23/2023 11:33:51 12/23/19 24 12/23/2023 rapid SARS CoV 2 Ag, QL IA, respi rator y speci men rapid SARS CoV 2 Ag, QL IA, respiratory specimen negati ve Not Available [facility] ed [address] [place] [address], [address], 12/23/2023 11:33:38 Result Notes None recorded. Medical [...] cm 97 % 97 % 86 /min 37727.8 56 g 16 /min 132 mm[Hg] 74 [...] SNOMED-CT Code Diagnosis ICD10 Code Diagnosis Note 88993 Margot Crystal MD Main - [facility] [address] [place] [phone] 12/23/2023 11:15:42 12/23/2023 18:10:33 Viral upper respiratory tract infection [id number] J06.9 Advised to stay hydrated, continue OTC [...] López Member ID Guarantor Name 12/23/2023 1 [facility] - DOS ON OR AFTER 2022 - DUAL ELIGIBLE - PENITENTIARY OPTIONS AND ONE CARE (MEDICARE REPLACEMENT/ADV ANTAGE - HMO) Shari Delgadillo [id number] Shari Delgadillo Notes Date Note Type Note Provider Name and Address Organization Details Recorded Time 12/23/2023 text/html [facility] Nurse Triage Notes (Waldemar Gonzales): Chief Complaints: Shortness of Breath/Dyspnea Allergies: Unknown Comments: Counselor Dormitory verified the member's name//address and phone number. [...] itchiness to her right ear no discharge [facility] POC Test Results from Frank Gray - ALS Rapid COVID antigen (1) [12:24] COVID: - Rapid influenza antigen (1) [12:24] Flu: - Rapid strep test (1) [12:24] Strep: - .................. .................. .................. .................. .................. .................. .................. ............... [facility] Note From Frank Gray: Smartcare visit for female patient with cough. Pt presents at home on couch in company of brother/HCP and IT RISK AND ASSURANCE MANAGER. Pt reports 3 days of cough with some chest congestion. Cough largely dry and unproductive. Pt also reporting some throat pain with cough and itchiness in right ear. No fevers reported. Denies CP/SOB. Pt well appearing. V/S taken and WNL. Pt afebrile. Pt swabbed for flu covid and strep, all negative. Lung sounds clear bilaterally. Abdomen soft and non tender. Consulted with [facility] [place]. Crystal who prescribed benzonatate for cough. Reviewed red flags for ED. Pt education provided. .................. .................. .................. .................. .................. .................. .................. ............... Disposition: Fulfilled Margot Crystal MD [address] [facility],[address], [place], [address], [employer] 12/23/2023 12:26:16 OBGyn Episode No OBEpisode recorded.
--- OUTSIDE RECORDS SUMMARY | 2024-10-17 14:15 | XMS_ITS ---
Author Organization [facility] monalisa Deposit Address [address] [place] [address] Care Team Providers Care Director Of Mechanical Engineering Name Role Phone Uri Salazar Primary Care Provider Bayron Caruso Unavailable [phone] Allergies No Known Allergies REASON FOR VISIT [...] Type 2 diabetes mellitus with peripheral angiopathy (117003742) Type 2 diabetes mellitus with diabetic peripheral angiopathy without gangrene (E11.51) Active confirmed Q7(A), Q8(2B), Q9(1B,2C) Problem Acquired hammer toe of right foot (8452158151773 105) Other hammer toe(s) (acquired), right foot (M20.41) Active confirmed Problem Acquired hammer toe of left foot (9624238554756 103) Other hammer toe(s) (acquired), left foot (M20.42) Active confirmed Vital Signs Height 4 ft 5 in in 08/01/2024 Weight 104 lbs 08/01/2024 BMI 26.03 kg/m2 08/01/2024 Blood pressure systolic 120 mm Hg 08/01/20 24 Blood pressure diastolic 79 mm Hg 024 Procedures Procedure Date Ordered Date Performed Result Body Sit e 37596-DBEHWGA NAIL, 1-5 08/01/2024 N/A 27963-KVZS SKIN LESIONS, OVER 4 08/01/2024 N/A A8618-FRSXQDXJ DYSTROPHIC NAILS ANY # 08/01/2024 N/A Encounters Encounter Location Date Provider Diagnosis [facility] [place] [address] [place] [id number] 08/01/2024 Bayron Jim Type 2 diabetes mellitus [...] INSTRUCTIONS.pdf) Pending Test Test Name Order Date 06139-IPWGIIU NAIL, 1-5 08/01/2024 28915-QQOH SKIN LESIONS, OVER 4 08/01/20 24 C2151-CNQIAEHJ DYSTROPHIC NAILS ANY # Next Appt Details Follow Up: 2.5 Months, Reaso n: Provider Name:Bayron Jim , 11/03/2024 01:30:00 PM, [address], [address], [place], [address], Procedure Notes * Category Sub-Category Detail Notes [...] instrumentation by the physician of record - 07542, Q8 Debride Nails 1-5 Procedure: Due to [...] necessary to maintain effective symptomatic relief - 35391 Nail Reduction Nail Reduction (-27) Trimming o [...] * Shari DELGADILLO EDOB:1965 (59 yo F)Acc No.[id number]:08/01/2024 Progress Notes Patient:?Shari DELGADILLO Provider:?Bayron Jim DPM :1965???Age:59 Y???Sex:Female D ate:08/01/2024 Address:[address] [place], [place] [id number] Pcp:Uri Salazar Subjective: * Chief Complaints: * [...] strength, B/L.?FOOT MORPHOLOGY:?(-) Charcot collapse/destruction noted at ALJ.?DIGITAL DEFORMITIES:?Digital contracture, PIPJ, 2-5 B/L, incompl-reducible to [...] burning, paresthesia, tingling, B/L.?Ophthalmology Referral: ?DIABETES EYE EXAM?Procedure Performed:?Yes ?Date of Exam Performed?09/03/2023 ?Diabetic Retinopathy Screening:?Yes ?Retinal Screening Performed:?Yes ?Findings of Diabetic Eye Exam:?no retinopathy?General Examination: ?GENERAL APPEARANCE:?Reveals a pleasant, alert, well nourished, well- developed, well hydrated individual, who demonstrates proper attention to hygiene/body habitus, and is in no acute distress, Pt serves as own historian for office visit today, Pt accompanied by, brother, Kristopher,?and/who is physically present in exam room at time of visit.?ORIENTED:?person, place, and time.?FOOT EXAM:?Lower Extremity Neurological Exam performed:?Yes ?Date?08/01/2024 ?Footwear Evaluation?Footwear Evaluation performed:?Yes??? Assessment: * Assessment: 1.?Tinea unguium - B35.1???2 [...] Management (4)??? Plan: * Treatment: 2.?Tinea unguium?Procedure: 85498-FTNMIXA NAIL, 1-5 3.?Other hammer toe(s) (acqu ired), [...] necessary to maintain effective symptomatic relief - 45756.?Keratoma Treatment:?Parring or Cutting of Benign Hyperkeratotic Lesion(s)?(-57) [...] instrumentation by the physician of record - 33600, Q8.?Nail Reduction:?Nail Reduction?(-27) Trimming of all dystrophic [...] DYSTROPHIC NAILS ANY #, Modifiers: XS , [id number] DEBRIDE NAIL, 1-5, Modifiers: XS 51770 TRIM SKIN LESIONS, OVER 4, Modifiers: XS [...] Jim DPM Date:?2023 Generated for Gini rivera/Pasha/Bertin on:?10/17/2024 02:14 PM EDT History and Physical Notes * HPI (History of Present Illness) Category Sub-Category Detail Notes Category Not es Toe pain Location: B/L feet Duration: several years Course: worse Aggravated by: shoes, any pressure Treatments: change in shoes At Risk footcare Pt States Last PCP Visit: Date: [facility] Patient accompanied by, brotherKristopher Examination Category Sub-Category [...] for office visit today, Pt accompanied by, brotherKristopher, and/who is physically present in exam room [...]
== END 2024-10-17 12:01 | disposition home or self-care (01) ==
LOC: HO.MAMMO 12:00
PROVIDERS: PCP Internal Medicine; Visit Provider Internal Medicine
DX: Z12.31 Encounter for screening mammogram for malignant neoplasm of breast (principal)
CPT/HCPCS: 77063; 77067

== ENCOUNTER → 2024-10-17 12:15 | Outpatient (BNV) | payer OTHER, SELFPAY | PROVIDERS: PCP Internal Medicine; Visit Provider Internal Medicine | DX: Z12.31 Encounter for screening mammogram for malignant neoplasm of breast (principal) | CPT/HCPCS: 77063; 77067 ==

== ENCOUNTER 2024-10-25 07:18 | Outpatient (REF) | payer OTHER, SELFPAY ==
[2024-10-25 08:33] LABS: Appearance Urine Clear; Color Urine Yellow; Glucose Urine UA >=1000 mg/dL (Negative); Leukocyte Esterase Urine Negative (Negative); Nitrite Urine Negative (Negative); PH 5.5 (5.0-9.0); Specific Gravity - Urine >= 1.030 (1.005-1.025); UMIC TRIGGER UACC YES; Urine Blood Small (1+) (Negative); Urine Ketones Trace mg/dL (Negative); Urine Protein Negative (Neg-Trace)
[2024-10-25 08:38] LABS: Bacteria Urine Trace (None Seen); Hyaline Casts Urine 0-2 /LPF (0-2); UACC Culture Trigger YES
== END 2024-10-25 07:19 | disposition home or self-care (01) ==
LOC: HO.LAB 07:18
PROVIDERS: PCP Internal Medicine; Visit Provider Internal Medicine
DX: R30.0 Dysuria (principal); R82.90 Unspecified abnormal findings in urine
CPT/HCPCS: 81001; 87086; 87147

== ENCOUNTER 2024-10-28 09:35 | Outpatient (AMB) | payer OTHER, SELFPAY ==
[2024-10-28 10:00] VITALS: BP 102/70; PULSE 96; TEMP 36.3; O2SAT 99; BMI 24.7
--- NOTE | 2024-10-28 10:00 | MHC.PC.OV ---
Vital Signs 10/28/24 10:00 10/28/24 10:22 Height 4 ft 5 in Weight 98 lb 8.746 oz BMI 24.7 BP 102/70 116/70 Blood Pressure Location Lt brachial Lt brachial Position Sitting Sitting Pulse 96 Pulse Source Pulse Oximeter Temp 97.3 F Temp Source Temporal Artery Scan Pulse Oximetry (%) 99 Oxygen Delivery Method Room Air Intake Visit Reasons: DM , Cake Puller Required: No Accompanied by: Brother Allergies No Known Allergies Allergy (Verified 10/28/24 10:07) Tobacco use date assessed: 10/28/24 Dental Screening Dental Screen Date: 10/28/24 Did you have a dental visit in the last 12 months?: Yes Did you have a dental problem in the last 6 months where you did not have access to dental care?: No Was dental information given to patient?: Patient has dentist [facility] Medical History (Updated 10/28/24 @ 10:17 by Uri Salazar MD) Impacted cerumen of both ears Annual physical exam Encounter for annual routine gynecological examination Colon cancer screening Avulsion fracture of metatarsal bone of left foot with routine healing Injury of right great toe Cerebral palsy Hypercholesterolemia Rosacea Hypertension Vitamin D deficiency Peripheral vascular disease Type 2 diabetes mellitus with hyperglycemia Surgical History History of brain shunt Family History Father Medical history unknown Mother Brain cancer Diabetes Hypertension Paternal Uncle Cancer Social History Housing: House Alcohol intake: never Patient Tobacco Use Status: Never used Tobacco e-Cigarette/Vaping Use: Never Used Second Hand Smoke Exposure: No service: No Current occupational status: disabled Cognitive needs: No Hearing needs: No Vision needs: No Questionnaire PHQ-9 Over the last 2 weeks, how often have you been bothered by any of the following problems? 1. Little interest or pleasure in doing things: not at all 2. Feeling down, depressed, or hopeless: not at all 3. Trouble falling or staying asleep, or sleeping too much: not at all 4. Feeling tired or having little energy: not at all 5. Poor appetite or overeating: not at all 6. Feeling bad about yourself - or that you are a failure or have let yourself or your family down: not at all 7. Trouble concentrating on things, such as reading the newspaper or watching television: not at all 8. Moving or speaking so slowly that other people could have noticed. Or the opposite - being so fidgety or restless that you have been moving around a lot more than usual: not at all 9. Thoughts that you would be better off or of hurting yourself in some way: not at all Total score: 0 Depression Screening Interpretation: Negative Depression Screening Done: Yes 75061 - PHQ-9 Billing: Yes Source: Developed by Drs. Jori Elias, Juani Noriega, Jagdish Cardenas and colleagues, with an educational rand from [employer]. Thrive Questionnaire Date Thrive assessed: 10/28/24 I am a: Patient What is your living situation today?: I have a steady place to live Within the past 12 months, did the food you bought not last and you didn't have the money to get more?: Never true Within the past 12 months, did you worry whether your food would run out before you got money to buy more?: Never true Do you have trouble paying for medicines?: No Do you have trouble getting transportation to medical appointments?: No Do you have trouble paying your heating and electricity bill?: No Do you have trouble taking care of your child, family member or friend?: I choose not to answer this question Do you have trouble with day-to-day activities such as bathing, preparing meals, shopping, managing finances, etc.?: Yes Are you currently unemployed and looking for a job?: No Are you interested in more education?: No Please select the resources that you would like help with: None Currently or been in a relationship where the following occur: No concerns reported THRIVE Score: 0 AUDIT C Alcohol Use Questionnaire (AUDIT-C) 1. How often do you have a drink containing alcohol?: Never 3. How often do you have six or more drinks on one occasion?: Never Total Score: 0 MATEO-7 AMB Questionnaire MATEO-7 Date MATEO - 7 assessed: 10/28/24 Feeling nervous, anxious, or on edge: 0 = Not at all Not being able to stop or control worryin = Not at all Worrying too much about different things: 0 = Not at all Trouble relaxin = Not at all Being so restless that it is hard to sit still: 0 = Not at all Becoming easily annoyed or irritable: 0 = Not at all Feeling afraid as if something awful might happen: 0 = Not at all Total MATEO-7 score (0-4 normal; 5-9 mild; 10-14 moderate; 15-21 severe): 0 Source: Developed by Drs. Jori Elias, Juani Noriega, Jagdish Cardenas and colleagues, with an educational rand from [employer]. MATEO-7 Assessment Billing MATEO-7 Assessment Tool: MATEO-7 Assessment 26174 Physical exam (Primary Care) Vital Signs: Last Vital Signs Temp 97.3 F 10/28/24 10:00 Pulse 96 10/28/24 10:00 BP 116/70 10/28/24 10:22 Pulse Ox 99 10/28/24 10:00 Oxygen Delivery Method Room Air 10/28/24 10:00 BMI result Body Mass Index 24.7 Tobacco/Smoking Status: Tobacco use Status Tobacco use date assessed 10/28/24 10/28/24 10:11 Patient Tobacco Use Status Never used Tobacco 10/28/24 10:11 e-Cigarette/Vaping Use Never Used 10/28/24 10:11 PHQ-9: PHQ-9 Score PHQ-9: Total score 0 10/28/24 11:35 Depression Screening Interpretation: Negative Thrive Assessment: Date of Thrive Assessment Date Thrive assessed 10/28/24 10/28/24 10:11 Currently or been in a relationship where the following occur: No concerns reported Const General: alert; No acute distress Eyes Conjunctivae: conjunctivae normal Resp Auscultation: clear to auscultation bilaterally Cardio Rate: regular rate Rhythm: regular rhythm GI Inspection: Yes normal to inspection Other: mild redness on the gluteal area with R side callous formation , mild scaliness, R foot checked pulse good does have callous R medila toe area and metatarsal area Extrem General: Yes normal to inspection and No edema Results AMB Hemoglobin A1c AMB Hemoglobin A1c 6.7 % Last Edit by JELENA Puga on 10/28/24 11:36 Results Reviewed Results Reviewed: Laboratory Last Values Hgb A1c (Clinic) 6.7 % (4.0-6.0) H 10/28/24 09:58 Coding Level of Care Code Est Pt Level 4 (13688) Complex EM visit Add On G2211 Diagnoses Patellofemoral arthritis of right knee M17.11 Type 2 diabetes mellitus with hyperglycemia, without long-term current use of insulin E11.65 Diabetes mellitus forensic ballistics expert insulin use: without forensic ballistics expert use Essential hypertension I10 Hypertension type: essential hypertension Hypercholesterolemia E78.00 Anemia D64.9 Weight loss R63.4 Additional Codes MATEO-7 Assessment Billing - MATEO-7 Assessment Tool: MATEO-7 Assessment 22213 ([id number]) PHQ-9 - 76172 - PHQ-9 Billing: Yes ([id number]) Assessment & Plan Assessment & Plan (1) Patellofemoral arthritis of right knee: Code(s): M17.11 - Unilateral primary osteoarthritis, right knee Category: Medical Plan: Has seen ortho and has been advised exercise/physical therapy (2) Type 2 diabetes mellitus with hyperglycemia: Comment: Dr. Romero Code(s): E11.65 - Type 2 diabetes mellitus with hyperglycemia Category: Medical Qualifiers: Diabetes mellitus half-way insulin use: without forensic ballistics expert use Qualified Code(s): E11.65 - Type 2 diabetes mellitus with hyperglycemia Plan: Decrease the amount of carbohydrate intake, pasta, bread, rice and potatoes are all sugar and that is aside from all the sweet stuff, remember that fruits are good but they are Sweet also. Hemoglobin A1c goal of less than 6.5 on Jardiance 10 mg once a day only (3) Hypertension: Code(s): I10 - Essential (primary) hypertension Category: Medical Qualifiers: Hypertension type: essential hypertension Qualified Code(s): I10 - Essential (primary) hypertension Plan: Continue with blood pressure medication. Decrease salt intake and exercise lisinopril 10 mg once a day (4) Hypercholesterolemia: Code(s): E78.00 - Pure hypercholesterolemia, unspecified Category: Medical Plan: Avoid fried foods, chicken skin, eggs, butter margarine, pastries and meat. Be it pork or beef they have a lot of cholesterol LDL goal of less than 100 and triglyceride of less than 150 on simvastatin 40 mg once a day (5) Anemia: Code(s): D64.9 - Anemia, unspecified Category: Medical Plan: Continuing to monitor (6) Weight loss: Code(s): R63.4 - Abnormal weight loss Category: Medical Plan: Reviewed the medication since the start of the patient with Jardiance this is the effect weight loss Plan History of Present Illness The patient is a 59-year-old female presenting for a follow-up visit to manage chronic conditions including diabetes mellitus, hypertension, and hypercholesterolemia. Her diabetes is managed with Jardiance, aiming for an A1c level of less than 6.5%. Her last measurement was 6.7%. She has a history of mild anemia, with a recent hemoglobin level of 11.7 g/dL. Additionally, she has patellofemoral arthritis with significant medial joint space loss, and was advised to engage in physical therapy and strengthening exercises for her knee pain. Further medical history includes cerebral palsy and issues with rosacea, which she manages with topical treatment. Health Maintenance - Mammogram up to date as of October 2024. - Colorectal cancer screening with Cologuard is current as of October 2022. - Monitoring of hemoglobin A1c levels. - Blood pressure managed with a target of less than 140/90 mmHg. Social History - No information on employment or housing was discussed. - Functional status includes impaired mobility due to cerebral palsy. - Nutritional intake includes late lunches, normal breakfasts. - Discussed weight management related to Jardiance and advised to maintain hydration. Review of Systems - Skin: Reports blisters and rosacea. Physical Exam Results - Labs: Hemoglobin 11.7 g/dL (mild anemia), LDL cholesterol 85 mg/dL. - Tests: Knee X-ray showed severe joint space loss in medial compartment. Plan The management plan involves continuing Jardiance for diabetes with regular monitoring of A1c, maintaining lisinopril for blood pressure control, and simvastatin for cholesterol management. Physical therapy remains crucial for knee arthritis, and strengthening exercises should be continued. Her anemia will be reassessed with follow-up lab work, while ongoing topical treatment is recommended for skin blisters and rosacea. I advised maintaining adequate hydration levels and a balanced diet. Patient was informed and verbally consented to the use of an ambient scribe for clinic note documentation during this visit. Discussion Notes In our discussion, I elaborated on the management options for the patient's chronic conditions and knee pain. We reviewed the continuation of current medications for diabetes, hypertension, and hypercholesterolemia. The decision to focus on physical therapy for knee arthritis was discussed, emphasizing its role in pain reduction and function improvement. The risks and benefits of Jardiance, particularly its impact on weight and hydration, were outlined. We also talked about the importance of monitoring for complications and the steps to be taken in case of any significant changes. Follow-up appointments were planned for ongoing assessment of her conditions. Patient Instructions - Continue taking Jardiance, lisinopril, and simvastatin as prescribed. - Engage in recommended physical therapy and exercises for knee arthritis. - Use topical treatments for skin conditions regularly. - Stay hydrated, especially due to Jardiance use. - Follow up with planned blood tests and consultations. - Seek medical attention if experiencing unusual or severe symptoms. Orders: Orders AMB Hemoglobin A1c Today E11.65 - Type 2 diabetes mellitus with hyperglycemia Complete Blood Count Auto Diff Today R63.4 - Abnormal weight loss Ferritin Today R63.4 - Abnormal weight loss Vitamin B12 and Folate Today R63.4 - Abnormal weight loss Magnesium Today R63.4 - Abnormal weight loss UA CC w/rflx Micro + Cult Today R30.0 - Dysuria, R63.4 - Abnormal weight loss Comprehensive Met. Panel Today R63.4 - Abnormal weight loss Free T4 (Free Thyroxine) Today R63.4 - Abnormal weight loss IRON PROFILE Today R63.4 - Abnormal weight loss Reticulocyte Count Today R63.4 - Abnormal weight loss XR chest 2V Today R63.4 - Abnormal weight loss Thyroid Stimulating Hormone Today R63.4 - Abnormal weight loss Medications: New [Diabetic Shoes] As directed 1 ea 0RF E11.65 - Type 2 diabetes mellitus with hyperglycemia
[2024-10-28 10:22] VITALS: BP 116/70
== END 2024-10-28 10:41 | disposition home or self-care (01) ==
LOC: HO.HMCH 09:36
PROVIDERS: PCP Internal Medicine; Visit Provider Internal Medicine
DX: M17.11 Unilateral primary osteoarthritis, right knee (principal); E11.65 Type 2 diabetes mellitus with hyperglycemia; I10 Essential (primary) hypertension; E78.00 Pure hypercholesterolemia, unspecified; D64.9 Anemia, unspecified; R63.4 Abnormal weight loss

== ENCOUNTER → 2024-10-28 09:35 | Outpatient (BNVA) | payer OTHER, SELFPAY | PROVIDERS: PCP Internal Medicine; Visit Provider Internal Medicine | DX: M17.11 Unilateral primary osteoarthritis, right knee (principal); E11.65 Type 2 diabetes mellitus with hyperglycemia; E78.00 Pure hypercholesterolemia, unspecified; I10 Essential (primary) hypertension; D64.9 Anemia, unspecified; R63.4 Abnormal weight loss | CPT/HCPCS: 83036; 96127; 99212 ==

== ENCOUNTER 2024-10-31 07:07 | Outpatient (REF) | payer OTHER, SELFPAY ==
--- NOTE | ~2024-10-31 | XR_ITS ---
CLINICAL HISTORY: R63.4 - Abnormal weight loss 2 view chest x-ray Comparison: None Findings: The lungs are clear. Normal size heart. No acute fracture. IMPRESSION: 1. No acute findings. This document has been electronically signed by: Delfino Lawler MD on 10/31/2024 08:05:24
[2024-10-31 07:30] LABS: MANUAL DIFF FLAG NO
[2024-10-31 08:05] LABS: Basophils Percent Auto 0.5 % (0-2); Eosinophils Absolute Auto 0.1 X10*3/uL (0.0-0.4); Eosinophils Percent Auto 1.1 % (0-4); Hemoglobin 13.1 g/dl (12.0-16.0); Imm Gran Abs Auto 0.01 X10*3/uL (0.00-0.03); Imm Gran Pct Auto 0.2 % (0.0-0.4); Immature Retic Fraction 10.8 % (3.0-15.9); Lymphocytes Absolute Auto 1.4 X10*3/uL (1.2-4.9); Lymphocytes Percent Auto 25.2 % (20-40); Mean Corpuscular HGB Conc 32.8 g/dl (31.0-35.0); Mean Corpuscular Hemoglobin 28.9 pg (27.0-33.0); Mean Corpuscular Volume 88.3 fL (80.0-98.0); Mean Platelet Volume 9.1 fL (9.4-12.3); Monocytes Absolute Auto 0.3 X10*3/uL (0.1-1.2); Monocytes Percent Auto 5.4 % (2-11); Neutrophils Absolute Auto 3.7 x10*3/uL (2.0-8.3); Neutrophils Percent Auto 67.6 % (45-73); Platelet Count 341 X10*3/uL (160-400); Red Blood Count 4.53 X10*6/uL (4.20-5.50); Red Cell Distribution Width 13.4 % (11.0-16.0); Retic HGB Equivalent 32.2 pg (30.0-35.0); Reticulocytes Absolute 0.047 X10*6/uL (0.026-0.095); White Blood Count 5.5 X10*3/uL (4.8-10.8)
[2024-10-31 08:54] LABS: Alanine Aminotransferase 12 U/L (0-31); Albumin Level 4.1 g/dL (3.5-5.0); Alkaline Phosphatase 61 U/L (39-117); Anion Gap 12 (12-20); Aspartate Amino Transferase 17 U/L (5-31); Bilirubin Total 0.3 mg/dL (0.0-1.0); Blood Urea Nitrogen 18 mg/dL (9-16); Calcium 9.5 mg/dL (8.4-10.2); Carbon Dioxide 28 mmol/L (22-29); Chloride 107 mmol/L (96-108); Estimated Glomerular Filt Rate > 60; Glucose Random 110 mg/dL (60-115); Iron 52 mcg/dL (30-160); Percent Iron Saturation 20 % (15-50); Sodium 143 mmol/L (135-145); Total Iron Binding Capacity 258 mcg/dL (228-428); Total Protein 7.2 g/dL (6.5-8.0); Unsaturated Iron Binding 206 ug/dL
[2024-10-31 09:15] LABS: Ferritin 60 ng/mL (10-250); Free T4 (Free Thyroxine) 1.09 ng/dL (0.71-1.85); Thyroid Stimulating Hormone 0.42 uIU/mL (0.32-4.0)
[2024-10-31 09:18] LABS: Folate 14.2 ng/mL (> or = 4.0); Vitamin B12 1041 pg/mL (200-900)
[2024-10-31 12:02] LABS: Appearance Urine Cloudy; Color Urine Yellow; Glucose Urine UA >=1000 mg/dL (Negative); Leukocyte Esterase Urine Negative (Negative); Nitrite Urine Negative (Negative); PH 5.5 (5.0-9.0); Specific Gravity - Urine >= 1.030 (1.005-1.025); UMIC TRIGGER UACC YES; Urine Blood Moderate (2+) (Negative); Urine Ketones 15 mg/dL (Negative); Urine Protein Negative (Neg-Trace)
[2024-10-31 12:15] LABS: Bacteria Urine 1+ (None Seen); Hyaline Casts Urine 0-2 /LPF (0-2); Other Crystals Urine Present; RBC Urine 0-2 /HPF (0-2); Squamous Epithelial Cell Urine >20 /HPF (0-2); UACC Culture Trigger YES
== END 2024-10-31 07:08 | disposition home or self-care (01) ==
LOC: HO.XRAY 07:07
PROVIDERS: PCP Internal Medicine; Visit Provider Internal Medicine
DX: R63.4 Abnormal weight loss (principal); R30.0 Dysuria; R82.90 Unspecified abnormal findings in urine
CPT/HCPCS: 36415; 71046; 80053; 81001; 81003; 82607; 82728; 82746; 83540; 83735; 84439; 84443; 85025; 85045; 87086

== ENCOUNTER → 2024-10-31 07:31 | Outpatient (BNV) | payer OTHER, SELFPAY | PROVIDERS: PCP Internal Medicine; Visit Provider Specialist | DX: R63.4 Abnormal weight loss (principal) | CPT/HCPCS: 71046 ==

== ENCOUNTER 2024-11-29 13:43 | Outpatient (REF) | payer OTHER, SELFPAY ==
--- NOTE | ~2024-11-29 | US_ITS ---
CLINICAL HISTORY: R31.9 - Hematuria, unspecified US Renal Comparison: None Findings: Right kidney normal echotexture, 9.6 cm length. Left kidney normal echotexture, 8.4 cm length. No collecting system dilatation of either kidney. Normal color Doppler. Urinary bladder is unremarkable. Prevoid volume 469 mL. Postvoid volume 0 mL. Bilateral ureteral jets are visualized. IMPRESSION: No hydronephrosis. No postvoid urinary bladder residue. This document has been electronically signed by: Cathy Faye MD on 12/01/2024 11:34:38
--- OUTSIDE RECORDS SUMMARY | 2024-11-29 15:48 | XMS_ITS | Patient Health Record ---
Author Organization [facility] Address [address] [facility] [place] [address] Care Team Providers Care Airplane Tester Name Role Phone Uri Salazar Primary Care Provider Bayron Caruso Unavailable [phone] Allergies No Known Allergies Results Component Value Reference Range Notes HEMOGLOBIN A1C (GLYCOHEMOGLO BIN) Reviewed date:08/01/2024 02:36:57 PM Interpretation: Performing Lab: Notes/Report: TOTAL HEMOGLOBIN (HGBA1C) 6.5 HEMOGLOBIN A1C (GLYCOHEMOGLO BIN) Reviewed date:11/03/2024 01:40:45 PM Interpretation: Performing Lab: Notes/Report: HEMOGLOBIN A1C % (HH) 6.5 Reason For Referral No Information Medications Medication SIG (Take, Route, Frequency, Duration) Notes Start Date End Date Status Vitamin D Active Vitamin B12 Active Lisinopril Active Jardiance Active Simvastatin Active Folic Acid Active metFORMIN HCl Not-Ta hemal Extra Depth Orthopedic Shoes, (1) Pair With (3) Pair Custom Heat Molded Multidensity Innersoles Dx: NIDDM/PVD(E11.51), Hammertoe Foot Deformity(M20.41,M20.42) , Preulcerative Skin Lesion(s)(L85.1) Wear Daily for 365 days Active Social History Tobacco Use: Social History Observation Description Date Details (start date - stop date) Never Smoker NA - NA Tobacco use other than smoking: Question Answer Notes Are you an other tobacco user? No Tobacco Control (Standard) Question Answer Notes Tobacco use: Nonsmoker Additional Findings: Tobacco non-user Current no nsmoker AUDIT-C (Standard) Question Answer Notes Did you have a drink containing alcohol in the p ast year? No Points 0 Interpretation Negative Problems Problem Type SNOMED Code ICD Code Onset Dates Problem Status W/U Status Risk Notes Problem Acquired hammer toe of right foot (6705457604875 105) Other hammer toe(s) (acquired), right foot (M20.41) Active confirmed Problem Acquired hammer toe of left foot (2728960644044 103) Other hammer toe(s) (acquired), left foot (M20.42) Active confirmed Problem Type 2 diabetes mellitus with peripheral angiopathy (974732689) Type 2 diabetes mellitus with diabetic peripheral angiopathy without gangrene (E11.51) Active confirmed Q7(A), Q8(2B), Q9(1B,2C) Vital Signs Blood pressure diastolic 70 mm Hg 11/03/2024 Height 4 ft 5 in in 11/03/2024 Blood pressure systolic 120 mm Hg 11/03/2024 Weight 104 lbs 11/03/2024 BMI 26.03 kg/m2 11/03/2024 Procedures Procedure Date Ordered Date Performed Result Body Sit e 99728-UJXPWQX NAIL, 1-5 08/01/2024 N/A 30893-TJZW SKIN LESIONS, OVER 4 08/01/2024 N/A L1408-YYIRLSIU DYSTROPHIC NAILS ANY # 08/01/2024 N/A 23702-ETEZRCI NAIL, 1-5 11/03/2024 N/A 24026-UJEQ SKIN LESIONS, OVER 4 11/03/2024 N/A L4482-NXQBUKZS DYSTROPHIC NAILS ANY # 11/03/2024 N/A Encounters Encounter Location Date Provider Diagnosis [facility] [address] 08/01/2024 Bayron Jim Type 2 diabetes mellitus with diabetic peripheral angiopathy without gangrene E11.51 ; Tinea unguium B35.1 ; Pain in right toe(s) M79.674 ; Pain in left toe(s) M79.675 ; Other hammer toe(s) (acquired), right foot M20.41 and Other hammer toe(s) (acquired), left foot M20.[address] [facility] [address] 11/03/2024 Bayron Jim Type 2 diabetes mellitus with diabetic peripheral angiopathy without gangrene E11.51 ; Tinea unguium B35.1 ; Pain in right toe(s) M79.674 ; Pain in left toe(s) M79.675 ; Other hammer toe(s) (acquired), right foot M20.41 and Other hammer toe(s) (acquired), left foot M20.42 [facility] [address] [address] 04/13/2024 Bayron Jim [facility] [address] [address] 05/11/2024 Bayron Jim Assessments Encounter Date Diagnosis (ICD Code) Assessment Notes Treatment Notes Treatment Clinical Notes Section Notes 08/01/2024 Tinea unguium (ICD-10 - B35.1) 08/01/2024 Type 2 diabetes mellitus with diabetic peripheral angiopathy without gangrene (ICD-10 - E11.51) Q7(A), Q8(2B), Q9(1B,2C) 11/03/2024 Tinea unguium (ICD-10 - B35.1) 11/03/2024 Type 2 diabetes mellitus with diabetic peripheral angiopathy without gangrene (ICD-10 - E11.51) Q7(A), Q8(2B), Q9(1B,2C) 08/01/2024 Pain in right toe(s) (ICD-10 - M79.674) 11/03/2024 Pain in right toe(s) (ICD-10 - M79.674) 11/03/2024 Pain in left toe(s) (ICD-10 - M79.675) 08/01/2024 Pain in left toe(s) (ICD-10 - M79.675) 08/01/2024 Other hammer toe(s) (acquired), right foot (ICD-10 - M20.41) Patient Educated with: DIABETIC FOOT CARE INSTRUCTIONS.p df (DIABETIC FOOT CARE INSTRUCTIONS.p df) 11/03/2024 Other hammer toe(s) (acquired), right foot (ICD-10 - M20.41) Patient Educated with: DIABETIC FOOT CARE INSTRUCTIONS.p df (DIABETIC FOOT CARE INSTRUCTIONS.p df) 11/03/2024 Other hammer toe(s) (acquired), left foot (ICD-10 - M20.42) 08/01/2024 Other hammer toe(s) (acquired), left foot (ICD-10 - M20.42) Plan Of Treatment Pending Test Test Name Order Date 95846-YSCYZPP NAIL, 1-5 08/01/2024 38752-AALDWQD NAIL, 1-5 11/03/2024 71544-JDRH SKIN LESIONS, OVER 4 11/04/19 25 33296-WKOP SKIN LESIONS, OVER 4 08/01/20 24 D0258-ENNEECYS DYSTROPHIC NAILS ANY # Z2863-FSCSJKCN DYSTROPHIC NAILS ANY # Next Appt Details Provider Name:Bayron Jim , 02/01/2025 01:15:00 PM, [facility] [place] [address], [place], [address], Insurance Providers Payer Name Payer Address Payer Phone Subscriber Number Group Number Insured Name Patient Relationship to Insured Coverage Start Date Coverage End Date [facility] [employer] Claims [address] [place] [address] [id number] Shari Delgadillo Self - patient is the insured Medical (General) History Medical History History ICD Code covid-19 Diabetic High Blood Pressure Cerebral palsy Hypercholesterolemia
--- OUTSIDE RECORDS SUMMARY | 2024-11-29 15:48 | XMS_ITS | Data Portability ---
Author Organization [facility], [place] [facility] Address [address] [place] [phone] Care Team Providers Care Flower Arranger Name Role Phone HIM CCA OTHER Assessment Encounter Date Assessment Date Assessment LastModified by Organization Details LastModified Time 12/23/2023 12/23/2023 I provided real -time medical direction via phone for this encounter, and was available for additional phone based assistance as needed. I have reviewed and agree with the Assessment and Plan as documented by the Recorder Helper [employer]. We discussed the diagnostic uncertainty of home [...] to call 911- verbalized understanding of instruction [email or web address] Not available 12/23/2023 11:33:30 Plan of Treatment Reminders Order Date Submit Date Provider Last Modified By Organization Details Last Modified Time Details Appointments None recorded. Lab rapid SARS CoV 2 Ag, QL IA, respiratory specimen 2023 024 [email or web address] 0 [facility], [address] [place] [address], [phone] 4 11:35:44 rapid strep group A, throat 2023 024 [email or web address] 0 [facility], [address] [place] [address], [phone] 4 11:35:45 rapid flu (A+B) 2023 024 [email or web address] 0 [facility], [address] [place] [address], [phone] 4 11:35:42 Referral None recorded. Procedures None recorded. Surgeries None recorded. Imaging None recorded. Medication Orders benzonatate 100 mg capsule 2023 024 [id number], [address] [place], [place], [phone], 11:35:55 Patient TargetsNo targets recorded. Patient InstructionsNo instructions recorded. Reason for Referral None Reported. Results Created Date Observation Date Name Description Value Unit Range Abnormal Flag Note LastModifiedBy Organization Detail LastModifiedTime 12/23/19 24 12/23/2023 rapid flu (A+B) Flu negati ve Not Available [facility] ed [address] [place] [address], [phone] 12/23/2023 11:33:56 12/23/19 24 12/23/2023 rapid strep group A, throa t Strep negati ve Not Available [facility] ed [address] [place] [address], [phone] 12/23/2023 11:33:51 12/23/19 24 12/23/2023 rapid SARS CoV 2 Ag, QL IA, respi rator y speci men rapid SARS CoV 2 Ag, QL IA, respiratory specimen negati ve Not Available [facility] ed [address] [place] [address], [phone] 12/23/2023 11:33:38 Result Notes None recorded. Medical [...] cm 97 % 97 % 86 /min 02884.8 56 g 16 /min 132 mm[Hg] 74 [...] SNOMED-CT Code Diagnosis ICD10 Code Diagnosis Note 44196 Margot Crystal MD Main - [facility] [address] [place] [phone] 12/23/2023 11:15:42 12/23/2023 18:10:33 Viral upper respiratory tract infection [id number] J06.9 Advised to stay hydrated, continue OTC [...] López Member ID Guarantor Name 12/23/2023 1 [facility] - DOS ON OR AFTER 2022 - DUAL ELIGIBLE - FPC OPTIONS AND ONE CARE (MEDICARE REPLACEMENT/ADV ANTAGE - HMO) Shari Delgadillo [id number] Shari Delgadillo Notes Date Note Type Note Provider Name and Address Organization Details Recorded Time 12/23/2023 text/html CRC Nurse Triage Notes (Waldemar Gonzales): Chief Complaints: Shortness of Breath/Dyspnea Allergies: Unknown Comments: Machine Repairman verified the member's name//address and phone number. [...] itchiness to her right ear no discharge Recorder Hel[employer] POC Test Results from Frank Gray - ALS Rapid COVID antigen (1) [12:24] COVID: - Rapid influenza antigen (1) [12:24] Flu: - Rapid strep test (1) [12:24] Strep: - .................. .................. .................. .................. .................. .................. .................. ............... Recorder Helper [employer] Note From Frank Gray: Smartcare visit for female patient with cough. Pt presents at home on couch in company of brother/HCP and PELT SHEARER. Pt reports 3 days of cough with some chest congestion. Cough largely dry and unproductive. Pt also reporting some throat pain with cough and itchiness in right ear. No fevers reported. Denies CP/SOB. Pt well appearing. V/S taken and WNL. Pt afebrile. Pt swabbed for flu covid and strep, all negative. Lung sounds clear bilaterally. Abdomen soft and non tender. [facility] Crystal who prescribed benzonatate for cough. Reviewed red flags for ED. Pt education provided. .................. .................. .................. .................. .................. .................. .................. ............... Disposition: Fulfilled Margot Crystal MD [address] [place] [address],[address], [place], [address], [employer] 12/23/2023 12:26:16 OBGyn Episode No OBEpisode recorded.
--- OUTSIDE RECORDS SUMMARY | 2024-11-29 15:48 | XMS_ITS ---
Author Organization [facility] [place] Address [address] [facility] [place] [address] Care Team Providers Care Buffer Chrome Name Role Phone Uri Salazar Primary Care Provider Bayron Caruso Unavailable [phone] Allergies No Known Allergies REASON FOR VISIT [...] Type 2 diabetes mellitus with peripheral angiopathy (276291820) Type 2 diabetes mellitus with diabetic peripheral angiopathy without gangrene (E11.51) Active confirmed Q7(A), Q8(2B), Q9(1B,2C) Problem Acquired hammer toe of right foot (3724036594678 105) Other hammer toe(s) (acquired), right foot (M20.41) Active confirmed Problem Acquired hammer toe of left foot (1528177110960 103) Other hammer toe(s) (acquired), left foot (M20.42) Active confirmed Vital Signs Height 4 ft 5 in in 08/01/2024 Weight 104 lbs 08/01/2024 BMI 26.03 kg/m2 08/01/2024 Blood pressure systolic 120 mm Hg 08/01/20 24 Blood pressure diastolic 79 mm Hg 024 Procedures Procedure Date Ordered Date Performed Result Body Sit e 81316-ZQNQETG NAIL, 1-5 08/01/2024 N/A 61823-CXBR SKIN LESIONS, OVER 4 08/01/2024 N/A L5417-VAMFPDVP DYSTROPHIC NAILS ANY # 08/01/2024 N/A Encounters Encounter Location Date Provider Diagnosis [facility] [place] [address] [place] [phone] 08/01/2024 Bayron Jim Type 2 diabetes mellitus [...] INSTRUCTIONS.pdf) Pending Test Test Name Order Date 11710-BAIHXKL NAIL, 1-5 08/01/2024 19518-FPKN SKIN LESIONS, OVER 4 08/01/20 24 C7259-KMUZONPN DYSTROPHIC NAILS ANY # Next Appt Details Follow Up: 2.5 Months, Reaso n: Provider Name:Bayron Jim , 02/01/2025 01:15:00 PM, [address] [facility], [address], [place], [address], Procedure Notes * Category Sub-Category Detail Notes [...] instrumentation by the physician of record - 46863, Q8 Debride Nails 1-5 Procedure: Due to [...] necessary to maintain effective symptomatic relief - 26246 Nail Reduction Nail Reduction (-27) Trimming o [...] * Shari DELGADILLO EDOB:1965 (59 yo F)Acc No.[id number]:08/01/2024 Progress Notes Patient:?Shari DELGADILLO Provider:?Bayron Jim DPM :1965???Age:59 Y???Sex:Female D ate:08/01/2024 Address:[address] [place], [place] [phone] Pcp:Uri Salazar Subjective: * Chief Complaints: * [...] strength, B/L.?FOOT MORPHOLOGY:?(-) Charcot collapse/destruction noted at [facility].?DIGITAL DEFORMITIES:?Digital contracture, PIPJ, 2-5 B/L, incompl-reducible to [...] Management (4)??? Plan: * Treatment: 2.?Tinea unguium?Procedure: 42714-VPQZCSZ NAIL, 1-5 3.?Other hammer toe(s) (acqu ired), [...] necessary to maintain effective symptomatic relief - 59455.?Keratoma Treatment:?Parring or Cutting of Benign Hyperkeratotic Lesion(s)?(-57) [...] instrumentation by the physician of record - 16020, Q8.?Nail Reduction:?Nail Reduction?(-27) Trimming of all dystrophic [...] DYSTROPHIC NAILS ANY #, Modifiers: XS , [id number] DEBRIDE NAIL, 1-5, Modifiers: XS 68536 TRIM SKIN LESIONS, OVER 4, Modifiers: XS [...] * Sign off status: Completed true * Provider:?Byaron Jim DPM Date:?2023 Generated for Gini rivera/Pasha/Bertin on:?11/29/2024 03:47 PM EDT History and Physical Notes * HPI (History of Present Illness) Category Sub-Category Detail Notes Category Not es Toe pain Location: B/L feet Duration: several years Course: worse Aggravated by: shoes, any pressure Treatments: change in shoes At Risk footcare Pt States Last PCP Visit: Date: 4 [facility] Patient accompanied by, brotherKristopher Examination Category Sub-Category [...] (-) Charcot col lapse/destruction noted at [facility] FOOTWEAR EVALUATION: worn, non-supportiv e, shoe gear properties exacerbate patient's foot/toe deformity [...]
--- OUTSIDE RECORDS SUMMARY | 2024-11-29 15:48 | XMS_ITS ---
Author Organization [facility] Address [address] [place] [address] Care Team Providers Care Porter Marina Name Role Phone Uri Salazar Primary Care Provider Bayron Caruso [phone] REASON FOR VISIT PUBLIC RELATIONS ASSISTANT PPWK Entered Encounters Encounter Location Date Provider Diagnosis [facility] [address] [place] [address] 05/11/2024 Bayron Jim Plan Of Treatment Next Appt Details Provider Name:Bayron Jim , 02/01/2025 01:15:00 PM, [facility] [address], [address], Progress Notes * Shari DELGADILLO EDOB:1965 (58 yo F)Acc No.[id number]:05/11/2024 Patient:?Shari Delgadillo :1965???Age:58 Y???Sex:Female Address:[address] [place] [address] * true * Date:? Generated for Printi miguel/Pasha/eTransmitting on:?11/29/2024 03:47 PM EDT
--- OUTSIDE RECORDS SUMMARY | 2024-11-29 15:48 | XMS_ITS ---
Author Organization [facility]isa [place] Address [address] [facility] [place] [address] Care Team Providers Care Retail Associate Manager Bilingual Name Role Phone Uri Salazar Primary Care Provider Bayron Caruso Unavailable [phone] Allergies No Known Allergies REASON FOR VISIT At Risk Footcare, Painful Nail(s) aggravated by shoes and causing difficulty standing/walking., ToeIrritation Medications Medication SIG (Take, Route, Frequency, Duration) Notes Start Date End Date Status Lisinopril Active Jardiance Active Folic Acid Active metFORMIN HCl Not-Ta hemal Extra Depth Orthopedic Shoes, (1) Pair With (3) Pair Custom Heat Molded Multidensity Innersoles Dx: NIDDM/PVD(E11.51), Hammertoe Foot Deformity(M20.41,M20.42) , Preulcerative Skin Lesion(s)(L85.1) Wear Daily for 365 days Active Vitamin D Active Vitamin B12 Active Simvastatin Active Social History Tobacco Use: Social History [...] ast year? No Points 0 Interpretation Negative Vital Signs Height 4 ft 5 in in 11/03/2024 Weight 104 lbs 11/03/2024 BMI 26.03 kg/m2 11/03/2024 Blood pressure systolic 120 mm Hg 11/04/19 25 Blood pressure diastolic 70 mm Hg 025 Procedures Procedure Date Ordered Date Performed Result Body Sit e 72727-JGCTSHT NAIL, 1-5 11/03/2024 N/A 56009-IIOU SKIN LESIONS, OVER 4 11/03/2024 N/A F9997-JUKMTQKJ DYSTROPHIC NAILS ANY # 11/03/2024 N/A Encounters Encounter Location Date Provider Diagnosis [facility] [place] [address] [facility] [address] [place] [address] 11/03/2024 Bayron Doeunier Type 2 diabetes mellitus with diabetic peripheral angiopathy without gangrene E11.51 ; Tinea unguium B35.1 ; Pain in right toe(s) M79.674 ; Pain in left toe(s) M79.675 ; Other hammer toe(s) (acquired), right foot M20.41 and Other hammer toe(s) (acquired), left foot M20.42 Assessments Encounter Date Diagnosis (ICD Code) Assessment Notes Treatment Notes Treatment Clinical Notes Section Notes 11/03/2024 Type 2 diabetes mellitus with diabetic peripheral angiopathy without gangrene (ICD-10 - E11.51) Q7(A), Q8(2B), Q9(1B,2C) 11/03/2024 Tinea unguium (ICD-10 - B35.1) 11/03/2024 Pain in right toe(s) (ICD-10 - M79.674) 11/03/2024 Pain in left toe(s) (ICD-10 - M79.675) 11/03/2024 Other hammer toe(s) (acquired), right foot [...] Skin Lesion(s)(L85.1) Wear Daily for 365 days Treatment Notes Assessment Notes Other hammer toe(s) (acquired), right fo ot Patient Educated with: DIABETIC FOOT CARE INSTRUCTIONS.pdf (DIABETIC FOOT CARE INSTRUCTIONS.pdf) Pending Test Test Name Order Date 62780-JCRKYOF NAIL, 1-5 11/03/2024 55773-PKQX SKIN LESIONS, OVER 4 11/04/19 25 K1475-NAWATVKL DYSTROPHIC NAILS ANY # Next Appt Details Follow Up: 2.5 Months, Reaso n: Provider Name:Bayron Jim , 02/01/2025 01:15:00 PM, [address], [address], [place], [address], Procedure Notes * Category Sub-Category Detail Notes [...] MTH (s), 1, B/L, Plantar Heel(s), B/L ), were pared, and/or cut utilizing a sterile 15 blade, tissue nippers, and/or power dremel instrumentation by the physician of record - 45711, Q8 Debride Nails 1-5 Procedure: Due to the cli nical pathology outlined in the exam findings, performance of this nail treatment is medically necessary as its management by an unskilled/untrained nonprofessional would put this patients foot and overall health at risk. Therefore, debridement to affected nail(s), as described in exam ( T2, T4, T8, T9), was performed exclusively by the [...] necessary to maintain effective symptomatic relief - 11679 Nail Reduction Nail Reduction (-27) Trimming o [...] described in the exam ( TA, T1, T3, T5, T6, T7), were debrided by the phisician of record to reduce/remove overall nail length and girth, by manual and electrical means with use of a nail nipper and/or dremel, to more viable healthy nail plate or bed tissue - G0127, Q8 Progress Notes * Shari DELGADILLO EDOB:1965 (59 yo F)Acc No.[id number]:11/03/2024 Progress Note Patient:?Shari DELGADILLO Provider:?Bayron Jim DPM :1965???Age:59 Y???Sex:Female D ate:11/03/2024 Address:[address] [place], [place] [id number] Pcp:Uri Salazar Subjective: * Chief Complaints: * ???At Risk FootcarePainful N ail(s) aggravated by shoes and causing difficulty standing/walking.Toe Irritation * HPI: ???At Risk footcare:?Pt States Last PCP Visit:?Date?10/24/2024 ?Misc?Patient accompanied by, Brother,LENARD, who is physically present in exam room at time of visit.?Toe pain:?Location:?B/L feet.?Duration:?several years.?Course:?worse.?Aggravated by:?shoes, any pressure.?Treatments:?change in [...] dece ased.?Father: .? * Social History:?Tobacco Use:?Tobacco use other than smoking?Are you an other tobacco user??No ?Tobacco Control (Standard)?Tobacco use:?Nonsmoker ?Additional Findings: Tobacco non-user?Current nonsmoker ???Drugs/Alcohol:?Drugs?Have you used drugs other than those for medical reasons in the past 12 months??No ???Miscellaneous:?Caffeine: yes. ?Children: no. ?Exercise: no. ?Marital status: single. ?Occupation: disabled. ???Drug/Alcohol:?AUDIT-C (Standard)?Did you have a drink containing alcohol in the past year??No ?Points?0 ?Interpretation?Negative * Medications:?TakingJardiance Lisinopril Folic Acid Simvastatin Vitamin B12 Vitamin D Extra Depth Orthopedic Shoes, (1) Pair With (3) Pair Custom Heat Molded Multidensity Innersoles . Dx: NIDDM/PVD(E11.51), Hammertoe Foot Deformity(M20.41,M20.42), Preulcerative Skin Lesion(s)(L85.1) Wear Daily Taking Jardiance Taking Lisinopril Taking Folic Acid Taking Simvastatin Taking Vitamin B12 Taking Vitamin D Taking Extra Depth Orthopedic Shoes, (1) Pair With (3) Pair Custom Heat Molded Multidensity Innersoles . Dx: NIDDM/PVD(E11.51), Hammertoe Foot Deformity(M20.41,M20.42), Preulcerative Skin Lesion(s)(L85.1) Wear Daily Not-Taking/PRNmetFORMIN HCl Medication List reviewed and reconciled with the patientNot-Taking/PRN metFORMIN HCl Medication List reviewed and reconciled with the patient * Allergies:?N.K.D.A.yes[Jt shea Verified] Objective: * Vitals:?Ht:4 ft 5 in, Wt:104 , BMI:26.03, Shoe size:3, BP:120/70mm Hg, BS:not taken, Ht-cm: 134.62 cm, Wt-k.17 kg. * ???Past Orders: ???Lab:HEMOGLOBIN A1C (GLYCO HEMOGLOBIN) (Order Date - 07/28/2024) (Collection Date & Time - 11/03/2024 01:40 PM) ? Value Reference Range ?HEMOGLOBIN A1C % (HH) 6.5 * Examination: ???Ophthalmology Referral: ?DIABETES EYE EXAM?Procedure Performed:?Yes ?Date of Exam Performed?07/06/2024 ?Diabetic Retinopathy Screening:?Yes ?Retinal Screening Performed:?Yes ?Findings of Diabetic Eye Exam:?no retinopathy?Vascular: ?DP PULSES (B):? 0/4, B/L.?PT PULSES (B):? [...] subungual debris, with pain on palpation ( T2,?T4,?T8, T9, ), all other nails not described with characteristics as possessing mycosis are elongated, overgrown, and dystrophic ( TA, T1, T3, T5, T6, T7?).?Dermatologic: ?SKIN FINDINGS:?Skin exam reveals Keratotic lesion(s) located at, Medial, IPJ, TA, Medial, IPJ, T5, SUB MTH (s), 1, B/L, Plantar Heel(s), B/L.?Orthopedic: ?MUSCLE STRENGTH:?Generalized decrease in strength, B/L.?FOOT MORPHOLOGY:?(-) Charcot collapse/destruction noted at [facility].?DIGITAL DEFORMITIES:?Digital contracture, PIPJ, 2-5 B/L, incompl-reducible to push-up test, no over, nor underlapping,?there is?evidence of shoe producing skin irritation.?FOOTWEAR EVALUATION:?worn, non-supportive, shoe gear properties exacerbate patient's foot/toe deformity.?Neurological: ?SENSORY:?Neurological exam reveals intact sensorium, pain sensation normal, vibration sensation intact, pinprick sensation is normal in the lower extremities, 5.07 monofilament test performed at plantar aspects of 5 varied sites per foot shows sensation, normal, B/L, Pt denies, anesthesia, burning, paresthesia, tingling, B/L.?General Examination: ?GENERAL APPEARANCE:?Reveals a pleasant, alert, well nourished, well- developed, well hydrated individual, who demonstrates proper attention to hygiene/body habitus, and is in no acute distress, Pt serves as own historian for office visit today, Pt accompanied by, brother, Lenard,?and/who is physically present in exam room at time of visit.?ORIENTED:?person, place, and time.?FOOT EXAM:?Lower Extremity Neurological Exam performed:?Yes ?Visual exam of foot performed:?Yes ?Date?11/03/2024 ?Footwear Evaluation?Footwear Evaluation performed:?Yes??? Assessment: * Assessment: 1.?Tinea unguium - B35.1???2 .?Type 2 diabetes mellitus with diabetic peripheral angiopathy without gangrene - E11.51 (Primary)???Specify :Q8???Notes :Q7(A), Q8(2B), Q9(1B,2C)???3.?Pain in right toe(s) - M79.674???4.?Pain in left toe(s) - M79.675???5.?Other hammer toe(s) (acquired), right foot - M20.41???Specify :Chronic problem, Worse (4),Rx Management (4)???6.?Other hammer toe(s) (acquired), left foot - M20.42???Specify :Chronic problem, Worse (4),Rx Management (4)??? Plan: * Treatment: 2.?Tinea unguium?Procedure: 14704-IGCHHRB NAIL, 1-5 3.?Other hammer toe(s) (acqu ired), [...] to affected nail(s), as described in exam (?T2,?T4, T8, T9), was performed exclusively by the [...] necessary to maintain effective symptomatic relief - 16973.?Keratoma Treatment:?Parring or Cutting of Benign Hyperkeratotic Lesion(s)?(-57) [...] described in the exam (?Medial,?IPJ,?TA,?Medial,?IPJ,?T5,?SUB MTH (s),?1,?B/L,?Plantar Heel(s),?B/L?), were pared, and/or cut utilizing a sterile 15 blade, tissue nippers, and/or power dremel instrumentation by the physician of record - 21597, Q8.?Nail Reduction:?Nail Reduction?(-27) Trimming of all dystrophic [...] described in the exam ( TA, T1, T3, T5, T6, T7), were debrided by the phisician of record to reduce/remove overall nail length and girth, by manual and electrical means with use of a nail nipper and/or dremel, to more viable healthy nail plate or bed tissue - G0127, Q8.? * Procedure Codes:?G0127 ARMIDA ING DYSTROPHIC NAILS ANY #, Modifiers: XS , [id number] DEBRIDE NAIL, 1-5, Modifiers: XS 30728 TRIM SKIN LESIONS, OVER 4, Modifiers: XS , Q8 * Preventive Medicine:? ??Counseling:?Discussion:?-14: Office or other outpatient visit for the evaluation and management of an established patient, which required a medically appropriate history [...] have encouraged the patient to call the office.?Diabetic Footcare:?The patient was advised against future self nail/callus care due to inherent risks for infection, loss of limb/life given diabetes, peripheral vascular disease.?Digital Surgery:?Digital surgery was discussed with the patient, [...] pair of custom heat-molded inserts was dispensed.? ??Screening/Special Tests:?Fall Risk?Screening:?No falls in the past year ?FALLS: Screening for Future Fall Risk?Have you had any falls with injury in the past year??No * Follow Up:?2.5 Months * Images: * Sign off status: Completed true * Provider:?Bayron Jim DPM Date:?2024 Generated for Gini rivera/Pasha/Bertin on:?11/29/2024 03:48 PM EDT History and Physical Notes * HPI (History of Present Illness) Category Sub-Category Detail Notes Category Not es Toe pain Location: B/L feet Duration: several years Course: worse Aggravated by: shoes, any pressure Treatments: change in shoes At Risk footcare Pt States Last PCP Visit: Date: [facility] Patient accompanied by, Brother, LENARD, who is physically present in exam room at time of visit Examination Category Sub-Category Detail Notes Category Not [...] office visit today, Pt accompanied by, brother, Lenard, and/who is physically present in exam room at time of visit FOOT EXAM: Lower Extremity Neurological Exa m performed:: Yes Visual exam of foot performed:: Yes Date: 11/03/2024 ORIENTED: person, place, and t jason Footwear Evaluation Footwear Evaluation performe d:: Yes Ophthalmology Referral DIABETES EYE EXAM Procedure Perform ed:: Yes ?Date of Exam Performed: 07/06/2024 Diabetic Retinopathy Screening:: Yes Retinal Screening Performed:: [...] subungual debris, with pain on palpation ( T2, T4, T8, T9, ), all other nails not described with characteristics as possessing mycosis are elongated, overgrown, and dystrophic ( TA, T1, T3, T5, T6, T7 )
== END 2024-11-29 13:44 | disposition home or self-care (01) ==
LOC: HO.US 13:43
PROVIDERS: PCP Internal Medicine; Visit Provider Internal Medicine
DX: R31.9 Hematuria, unspecified (principal)
CPT/HCPCS: 76770

== ENCOUNTER → 2024-11-29 13:45 | Outpatient (BNV) | payer OTHER, SELFPAY | PROVIDERS: PCP Internal Medicine; Visit Provider Radiology Diagnostic Radiology | DX: R31.9 Hematuria, unspecified (principal) | CPT/HCPCS: 76770 ==

== ENCOUNTER 2024-12-03 07:13 | Outpatient (REF) | payer OTHER, SELFPAY ==
--- OUTSIDE RECORDS SUMMARY | 2024-12-03 07:16 | XMS_ITS | Patient Health Record ---
Author Organization [facility] Address [address] [facility] [place] [address] Care Team Providers Care Metal Bed Assembler Name Role Phone Uri Salazar Primary Care Provider Bayron Caruso Unavailable [phone] Allergies No Known Allergies Results Component Value [...] Problem Acquired hammer toe of right foot (0382711789636 105) Other hammer toe(s) (acquired), right foot (M20.41) Active confirmed Problem Acquired hammer toe of left foot (7570147230203 103) Other hammer toe(s) (acquired), left foot (M20.42) Active confirmed Problem Type 2 diabetes mellitus with peripheral angiopathy (375100501) Type 2 diabetes mellitus with diabetic peripheral angiopathy without gangrene (E11.51) Active confirmed Q7(A), Q8(2B), Q9(1B,2C) Vital Signs Blood pressure diastolic 70 mm Hg 11/03/2024 Height 4 ft 5 in in 11/03/2024 Blood pressure systolic 120 mm Hg 11/03/2024 Weight 104 lbs 11/03/2024 BMI 26.03 kg/m2 11/03/2024 Procedures Procedure Date Ordered Date Performed Result Body Sit e 65443-QISDBXQ NAIL, 1-5 08/01/2024 N/A 72912-VGJS SKIN LESIONS, OVER 4 08/01/2024 N/A W6013-BYNYRBLI DYSTROPHIC NAILS ANY # 08/01/2024 N/A 04018-GXBSTAY NAIL, 1-5 11/03/2024 N/A 62794-KTIB SKIN LESIONS, OVER 4 11/03/2024 N/A C5929-IIDJIJDG DYSTROPHIC NAILS ANY # 11/03/2024 N/A Encounters Encounter Location Date Provider Diagnosis [facility] [address] 08/01/2024 Bayron Jim Type 2 diabetes mellitus with diabetic peripheral angiopathy without gangrene E11.51 ; Tinea unguium B35.1 ; Pain in right toe(s) M79.674 ; Pain in left toe(s) M79.675 ; Other hammer toe(s) (acquired), right foot M20.41 and Other hammer toe(s) (acquired), left foot M20.42 [facility] [address] 11/03/2024 Bayron Jim Type 2 diabetes mellitus with diabetic peripheral angiopathy without gangrene E11.51 ; Tinea unguium B35.1 ; Pain in right toe(s) M79.674 ; Pain in left toe(s) M79.675 ; Other hammer toe(s) (acquired), right foot M20.41 and Other hammer toe(s) (acquired), left foot M20.42 [facility] [address] [address] 04/13/2024 Bayron Jim [facility] [address] [address] 05/11/2024 Bayron Jim Assessments Encounter Date Diagnosis [...] Treatment Pending Test Test Name Order Date 02104-RXKMOOH NAIL, 1-5 08/01/2024 08058-YYTZENN NAIL, 1-5 11/03/2024 46354-JMYQ SKIN LESIONS, OVER 4 11/04/19 25 25370-IHJV SKIN LESIONS, OVER 4 08/01/20 24 K7759-CUINKSZX DYSTROPHIC NAILS ANY # D5670-MBSROBKX DYSTROPHIC NAILS ANY # Next Appt Details Provider Name:Bayron Jim , 02/01/2025 01:15:00 PM, [facility], [place] [address], [place], [address], Insurance Providers Payer Name Payer Address Payer Phone Subscriber Number Group Number Insured Name Patient Relationship to Insured Coverage Start Date Coverage End Date [facility] [employer] SCO Claims [address] [place] [phone] [id number] Shari Delgadillo Self - patient is the insured Medical (General) History Medical History History ICD Code covid-19 Diabetic High Blood Pressure Cerebral palsy Hypercholesterolemia
--- OUTSIDE RECORDS SUMMARY | 2024-12-03 07:16 | XMS_ITS ---
Author Organization [facility] [place] Address [address] [facility] [place] [address] Care Team Providers Care Sheriff'S Officer Name Role Phone Uri Salazar Primary Care Provider Bayron Caruso Unavailable [phone] Allergies No Known Allergies REASON FOR VISIT [...] Ordered Date Performed Result Body Sit e 26275-BAFJRAZ NAIL, 1-5 11/03/2024 N/A 57135-CSKK SKIN LESIONS, OVER 4 11/03/2024 N/A Y0882-LVMSIJXO DYSTROPHIC NAILS ANY # 11/03/2024 N/A Encounters Encounter Location Date Provider Diagnosis [facility] [place] [address] [facility] [address] [place] [address] 11/03/2024 Bayron Doeunier Type 2 diabetes mellitus [...] INSTRUCTIONS.pdf) Pending Test Test Name Order Date 86838-BXVCCDR NAIL, 1-5 11/03/2024 58214-IELB SKIN LESIONS, OVER 4 11/04/19 25 Q0302-EFWNCFVF DYSTROPHIC NAILS ANY # Next Appt Details Follow Up: 2.5 Months, Reaso n: Provider Name:Bayron Jim , 02/01/2025 01:15:00 PM, [address], [address], [place], [address], Procedure Notes * Category Sub-Category Detail Notes [...] instrumentation by the physician of record - 96037, Q8 Debride Nails 1-5 Procedure: Due to [...] necessary to maintain effective symptomatic relief - 59647 Nail Reduction Nail Reduction (-27) Trimming o [...] * Shari DELGADILLO EDOB:1965 (59 yo F)Acc No.[id number]:11/03/2024 Progress Note Patient:?Shari DELGADILLO Provider:?Bayron Jim DPM :1965???Age:59 Y???Sex:Female D ate:11/03/2024 Address:[address] [place], [place] [id number] Pcp:Uri Salazar Subjective: * Chief Complaints: * [...] Management (4)??? Plan: * Treatment: 2.?Tinea unguium?Procedure: 69390-HGHSIWQ NAIL, 1-5 3.?Other hammer toe(s) (acqu ired), [...] necessary to maintain effective symptomatic relief - 12309.?Keratoma Treatment:?Parring or Cutting of Benign Hyperkeratotic Lesion(s)?(-57) [...] instrumentation by the physician of record - 46310, Q8.?Nail Reduction:?Nail Reduction?(-27) Trimming of all dystrophic [...] DYSTROPHIC NAILS ANY #, Modifiers: XS , C057854 DEBRIDE NAIL, 1-5, Modifiers: XS 36885 TRIM SKIN LESIONS, OVER 4, Modifiers: XS [...] Jim DPM Date:?2024 Generated for Gini rivera/Pasha/Bertin on:?12/03/2024 07:16 AM EDT History and Physical Notes * HPI (History of Present Illness) Category Sub-Category Detail Notes Category Not es Toe pain Location: B/L feet Duration: several years Course: worse Aggravated by: shoes, any pressure Treatments: change in shoes At Risk footcare Pt States Last P[place]: [place] [facility] [place] accompanied by, Brother, LENARD, who is [...]
--- OUTSIDE RECORDS SUMMARY | 2024-12-03 07:16 | XMS_ITS | Data Portability ---
Author Organization [facility] Address [address] [place] [address] Care Team Providers Care Mathematical Engineering Technician Name Role Phone HIM CCA OTHER Assessment Encounter Date Assessment Date Assessment LastModified by Organization Details LastModified Time 12/23/2023 12/23/2023 I provided real -time medical direction via phone for this encounter, and was available for additional phone based assistance as needed. I have reviewed and agree with the Assessment and Plan as documented by the Area Supervisor. We discussed the diagnostic uncertainty of home [...] to call 911- verbalized understanding of instruction [email or web address] Not available 12/23/2023 11:33:30 Plan of Treatment Reminders Order Date Submit Date Provider Last Modified By Organization Details Last Modified Time Details Appointments None recorded. Lab rapid SARS CoV 2 Ag, QL IA, respiratory specimen 2023 024 [email or web address] 0 [facility], [address] [place] [address], [address] 4 11:35:44 rapid strep group A, throat 2023 024 [email or web address] 0 [facility], [address] [place] [address], [address] 4 11:35:45 rapid flu (A+B) 2023 024 [email or web address] 0 [facility], [address] [place] [address], [address] 4 11:35:42 Referral None recorded. Procedures None recorded. Surgeries None recorded. Imaging None recorded. Medication Orders benzonatate 100 mg capsule 2023 024 [id number], [address] [place], [place], [phone], 11:35:55 Patient TargetsNo targets recorded. Patient InstructionsNo instructions recorded. Reason for Referral None Reported. Results Created Date Observation Date Name Description Value Unit Range Abnormal Flag Note LastModifiedBy Organization Detail LastModifiedTime 12/23/19 24 12/23/2023 rapid flu (A+B) Flu negati ve Not Available [facility] ed [address] [place] [address], [address] 12/23/2023 11:33:56 12/23/19 24 12/23/2023 rapid strep group A, throa t Strep negati ve Not Available [facility] ed [address] [place] [address], [address] 12/23/2023 11:33:51 12/23/19 24 12/23/2023 rapid SARS CoV 2 Ag, QL IA, respi rator y speci men rapid SARS CoV 2 Ag, QL IA, respiratory specimen negati ve Not Available [facility] ed [address] [place] [address], [address] 12/23/2023 11:33:38 Result Notes None recorded. Medical [...] cm 97 % 97 % 86 /min 28315.8 56 g 16 /min 132 mm[Hg] 74 [...] SNOMED-CT Code Diagnosis ICD10 Code Diagnosis Note 94205 Margot Crystal MD Main - [facility] [address] [place] [phone] 12/23/2023 11:15:42 12/23/2023 18:10:33 Viral upper respiratory tract infection [id number] J06.9 Advised to stay hydrated, continue OTC [...] López Member ID Guarantor Name 12/23/2023 1 [facility] - DOS ON OR AFTER 2022 - DUAL ELIGIBLE - USP OPTIONS AND ONE CARE (MEDICARE REPLACEMENT/ADV ANTAGE - HMO) Shari Delgadillo [id number] Shari Delgadillo Notes Date Note Type Note Provider Name and Address Organization Details Recorded Time 12/23/2023 text/html [facility] Nurse Triage Notes (Waldemar Gonzales): Chief Complaints: Shortness of Breath/Dyspnea Allergies: Unknown Comments: Director Of Radio Services verified the member's name//address and phone number. [...] itchiness to her right ear no discharge Area Supervisor POC Test Results from Frank Gray - ALS Rapid COVID antigen (1) [12:24] COVID: - Rapid influenza antigen (1) [12:24] Flu: - Rapid strep test (1) [12:24] Strep: - .................. .................. .................. .................. .................. .................. .................. ............... Area Supervisor Note From Frank Gray: Smartcare visit for female patient with cough. Pt presents at home on couch in company of brother/HCP and INSIDE SALES ACCOUNT EXECUTIVE. Pt reports 3 days of cough with some chest congestion. Cough largely dry and unproductive. Pt also reporting some throat pain with cough and itchiness in right ear. No fevers reported. Denies CP/SOB. Pt well appearing. V/S taken and WNL. Pt afebrile. Pt swabbed for flu covid and strep, all negative. Lung sounds clear bilaterally. Abdomen soft and non tender. Consulted with [facility] Crystal who prescribed benzonatate for cough. Reviewed red flags for ED. Pt education provided. .................. .................. .................. .................. .................. .................. .................. ............... Disposition: Fulfilled Margot Crystal MD [address] [place] [address],[address], [place], [address], [employer] 12/23/2023 12:26:16 OBGyn Episode No OBEpisode recorded.
--- OUTSIDE RECORDS SUMMARY | 2024-12-03 07:16 | XMS_ITS ---
Author Organization [facility] [place] Address [address] [facility] [place] [address] Care Team Providers Care Hand Tapper Name Role Phone Uri Salazar Primary Care Provider Bayron Caruso Unavailable [phone] Allergies No Known Allergies REASON FOR VISIT [...] Type 2 diabetes mellitus with peripheral angiopathy (397544084) Type 2 diabetes mellitus with diabetic peripheral angiopathy without gangrene (E11.51) Active confirmed Q7(A), Q8(2B), Q9(1B,2C) Problem Acquired hammer toe of right foot (5890933477384 105) Other hammer toe(s) (acquired), right foot (M20.41) Active confirmed Problem Acquired hammer toe of left foot (0673171965019 103) Other hammer toe(s) (acquired), left foot (M20.42) Active confirmed Vital Signs Height 4 ft 5 in in 08/01/2024 Weight 104 lbs 08/01/2024 BMI 26.03 kg/m2 08/01/2024 Blood pressure systolic 120 mm Hg 08/01/20 24 Blood pressure diastolic 79 mm Hg 024 Procedures Procedure Date Ordered Date Performed Result Body Sit e 51752-MXHQFCG NAIL, 1-5 08/01/2024 N/A 72344-PTVA SKIN LESIONS, OVER 4 08/01/2024 N/A C7243-ZSHEGMCS DYSTROPHIC NAILS ANY # 08/01/2024 N/A Encounters Encounter Location Date Provider Diagnosis [facility] [place] [address] [place] [address] 08/01/2024 Bayron Jim Type 2 diabetes mellitus [...] INSTRUCTIONS.pdf) Pending Test Test Name Order Date 03524-KICOQYO NAIL, 1-5 08/01/2024 65351-TYLW SKIN LESIONS, OVER 4 08/01/20 24 T2868-KGIZULZN DYSTROPHIC NAILS ANY # Next Appt Details Follow Up: 2.5 Months, Reaso n: Provider Name:Bayron Jim , 02/01/2025 01:15:00 PM, [address] [facility], [address], [place], [address], Procedure Notes * Category Sub-Category Detail Notes [...] instrumentation by the physician of record - 49900, Q8 Debride Nails 1-5 Procedure: Due to [...] necessary to maintain effective symptomatic relief - 40189 Nail Reduction Nail Reduction (-27) Trimming o [...] * Shari DELGADILLO EDOB:1965 (59 yo F)Acc No.[id number]:08/01/2024 Progress Notes Patient:?Shari DELGADILLO Provider:?Bayron Jim DPM :1965???Age:59 Y???Sex:Female D ate:08/01/2024 Address:[address] [place], [place] [id number] Pcp:Uri Salazar Subjective: * Chief Complaints: * [...] Management (4)??? Plan: * Treatment: 2.?Tinea unguium?Procedure: 72399-TUOSEOR NAIL, 1-5 3.?Other hammer toe(s) (acqu ired), [...] necessary to maintain effective symptomatic relief - 63444.?Keratoma Treatment:?Parring or Cutting of Benign Hyperkeratotic Lesion(s)?(-57) [...] instrumentation by the physician of record - 04649, Q8.?Nail Reduction:?Nail Reduction?(-27) Trimming of all dystrophic [...] DYSTROPHIC NAILS ANY #, Modifiers: XS , E139383 DEBRIDE NAIL, 1-5, Modifiers: XS 58202 TRIM SKIN LESIONS, OVER 4, Modifiers: XS [...] Jim DPM Date:?2023 Generated for Gini rivera/Pasha/Bertin on:?12/03/2024 07:15 AM EDT History and Physical Notes * HPI (History of Present Illness) Category Sub-Category Detail Notes Category Not es Toe pain Location: B/L feet Duration: several years Course: worse Aggravated by: shoes, any pressure Treatments: change in shoes At Risk footcare Pt States Last PCP Visit: Date: [facility] Patient accompanied by, brotherKristopher Examination [...]
[2024-12-03 08:02] LABS: Urine Cytology See Pathology rpt
[2024-12-03 08:08] LABS: Appearance Urine Clear; Color Urine Yellow; Glucose Urine UA >=1000 mg/dL (Negative); Leukocyte Esterase Urine Negative (Negative); Nitrite Urine Negative (Negative); PH 5.5 (5.0-9.0); Specific Gravity - Urine >= 1.030 (1.005-1.025); UMIC TRIGGER UACC YES; Urine Blood Trace (Negative); Urine Ketones Negative (Negative); Urine Protein Negative (Neg-Trace)
[2024-12-03 08:14] LABS: Bacteria Urine None Seen (None Seen); Hyaline Casts Urine 0-2 /LPF (0-2); RBC Urine 0-2 /HPF (0-2); WBC Urine 0-5 /HPF (0-5)
== END 2024-12-03 07:14 | disposition home or self-care (01) ==
LOC: HO.LAB 07:13
PROVIDERS: PCP Internal Medicine; Visit Provider Internal Medicine
DX: R31.9 Hematuria, unspecified (principal)
CPT/HCPCS: 81001; 88112

== ENCOUNTER 2025-02-11 07:20 | Outpatient (REF) | payer OTHER, SELFPAY ==
--- OUTSIDE RECORDS SUMMARY | 2025-02-11 07:22 | XMS_ITS | Patient Health Record ---
Author Organization [facility] Address [address] [facility] [place] [address] Care Team Providers Care Wood Gluer Name Role Phone Uri Salazar Primary Care Provider Bayron Caruso Unavailable [phone] Allergies No Known Allergies Results Component Value Reference Range Notes HEMOGLOBIN A1C (GLYCOHEMOGLO BIN) Reviewed date:11/03/2024 01:40:45 PM Interpretation: Performing Lab: Notes/Report: HEMOGLOBIN A1C % (HH) 6.5 HEMOGLOBIN A1C (GLYCOHEMOGLO BIN) Reviewed date:02/01/2025 01:16:06 PM Interpretation: Performing Lab: Notes/Report: HEMOGLOBIN A1C % (HH) 6.5 HEMOGLOBIN A1C (GLYCOHEMOGLO BIN) Reviewed date:08/01/2024 02:36:57 PM Interpretation: Performing Lab: Notes/Report: TOTAL HEMOGLOBIN (HGBA1C) 6.5 Reason For Referral No Information Medications Medication SIG (Take, Route, Frequency, Duration) Notes Start Date End Date Status Simvastatin Active Folic Acid Active Lisinopril Active Jardiance Active metFORMIN HCl Not-Ta hemal Extra Depth Orthopedic Shoes, (1) Pair With (3) Pair Custom Heat Molded Multidensity Innersoles Dx: NIDDM/PVD(E11.51), Hammertoe Foot Deformity(M20.41,M20.4 2), Preulcerative Skin Lesion(s)(L85.1) Wear Daily; Duration: 365 days Active Vitamin D Active Vitamin B12 Active Amoxicillin prn dental Active Immunizations Vaccine Route Administration Date Status Comme nts Influenza Unknown 04/21/2024 Administered Social History Tobacco Use: Social History Observation [...] Problem Status W/U Status Risk Notes Problem Other hammer toe(s) (acquired), right foot (M20.41) Active confirmed Problem Acquired hammer toe of left foot (6240543901436 103) Other hammer toe(s) (acquired), left foot (M20.42) Active confirmed Problem Type 2 diabetes mellitus with peripheral angiopathy (967587609) Type 2 diabetes mellitus with diabetic peripheral angiopathy without gangrene (E11.51) Active confirmed Q7(A), Q8(2B), Q9(1B,2C) Vital Signs Blood pressure diastolic 70 mm Hg 11/03/2024 Height 4ft 5in in 02/01/2025 Blood pressure systolic 120 mm Hg 11/03/2024 Weight 92 lbs 02/01/2025 BMI 23.02 kg/m2 02/01/2025 Procedures Procedure Date Ordered Date Performed Result Body Sit e 56859-YVEKEZP NAIL, 1-08/01/2024 N/A 43997-VKPQ SKIN LESIONS, OVER 4 08/01/2024 N/A S7331-NQOOEMJU DYSTROPHIC NAILS ANY # 08/01/2024 N/A 86767-FLFWILJ NAIL, 1-5 11/03/2024 N/A 98183-HSPJ SKIN LESIONS, OVER 4 11/03/2024 N/A A6927-ETDDLMYJ DYSTROPHIC NAILS ANY # 11/03/2024 N/A 16135-RPQAHFD NAIL, 1-5 02/01/2025 N/A 91839-GPKI SKIN LESIONS, OVER 4 02/01/2025 N/A X1737-VPHNVUXJ DYSTROPHIC NAILS ANY # 02/01/2025 N/A Encounters Encounter Location Date Provider Diagnosis [facility] [address] [address] 08/01/2024 Bayron Jim Type 2 diabetes mellitus with diabetic peripheral angiopathy without gangrene E11.51 ; Tinea unguium B35.1 ; Pain in right toe(s) M79.674 ; Pain in left toe(s) M79.675 ; Other hammer toe(s) (acquired), right foot M20.41 and Other hammer toe(s) (acquired), left foot M20.[address] [address] 11/03/2024 Bayron Jim Type 2 diabetes mellitus with diabetic peripheral angiopathy without gangrene E11.51 ; Tinea unguium B35.1 ; Pain in right toe(s) M79.674 ; Pain in left toe(s) M79.675 ; Other hammer toe(s) (acquired), right foot M20.41 and Other hammer toe(s) (acquired), left foot M20.[address] [address] 02/01/2025 Bayron Jim Tinea unguium B35.1 ; Type 2 diabetes mellitus with diabetic peripheral angiopathy without gangrene E11.51 ; Pain in right toe(s) M79.674 and Pain in left toe(s) M79.[address] [address] 04/13/2024 Bayron Jim [address] [address] 05/11/2024 Bayron Jim Assessments Encounter Date Diagnosis [...] gangrene (ICD-10 - E11.51) Q7(A), Q8(2B), Q9(1B,2C) 02/01/2025 Tinea unguium (ICD-10 - B35.1) 02/01/2025 Type 2 diabetes mellitus with diabetic peripheral angiopathy without gangrene (ICD-10 - E11.51) Q7(A), Q8(2B), Q9(1B,2C) 02/01/2025 Pain in right toe(s) (ICD-10 - M79.674) 08/01/2024 Pain in right toe(s) (ICD-10 - M79.674) 11/03/2024 Pain in right toe(s) (ICD-10 - M79.674) 02/01/2025 Pain in left toe(s) (ICD-10 - M79.675) 11/03/2024 Pain in left toe(s) (ICD-10 - [...] Treatment Pending Test Test Name Order Date 46108-BOMJUGK NAIL, 1-08/01/2024 39664-YMBNDKF NAIL, 1-11/03/2024 17766-VSKCRBZ NAIL, 1-02/01/2025 71002-IQWJ SKIN LESIONS, OVER 4 02/02/20 25 87034-UBQK SKIN LESIONS, OVER 4 08/01/20 24 23715-QKVG SKIN LESIONS, OVER 4 11/04/19 25 Y8213-FPCAMTCX DYSTROPHIC NAILS ANY # L6554-JNOQGQTK DYSTROPHIC NAILS ANY # X8787-VNOIZVJF DYSTROPHIC NAILS ANY # Next Appt Details Provider Name:Bayron Jim , 04/27/2025 01:30:00 PM, [address] [facility], [address], [place], [address], Insurance Providers Payer Name Payer Address Payer Phone Subscriber Number Group Number Insured Name Patient Relationship to Insured Coverage Start Date Coverage End Date [facility] [employer] S[employer] Claims [address] [place] [address] [id number] Shari Delgadillo Self - patient is the insured Medical (General) History Medical History History ICD Code covid-19 Diabetic High Blood Pressure Cerebral palsy Hypercholesterolemia
[2025-02-11 08:06] LABS: Appearance Urine Clear; Glucose Urine UA >=1000 mg/dL (Negative); PH 5.5 (5.0-9.0); Specific Gravity - Urine >= 1.030 (1.005-1.025); UMIC TRIGGER UACC YES
== END 2025-02-11 07:21 | disposition home or self-care (01) ==
LOC: HO.LAB 07:20
PROVIDERS: PCP Internal Medicine; Visit Provider Internal Medicine
DX: R30.0 Dysuria (principal); R63.4 Abnormal weight loss
CPT/HCPCS: 81001

== ENCOUNTER 2025-02-14 14:41 | Outpatient (REF) | payer OTHER, SELFPAY ==
[2025-02-14 15:52] LABS: Leukocytes Stool Qualitative NEGATIVE (NEGATIVE)
--- OUTSIDE RECORDS SUMMARY | 2025-02-14 16:01 | XMS_ITS | Patient Health Record ---
Author Organization [facility] Address [address] [facility] [place] [address] Care Team Providers Care Treasury Assistant Name Role Phone Uri Salazar Primary Care Provider Bayron Caruso Unavailable [phone] Allergies No Known Allergies Results Component Value [...] Problem Acquired hammer toe of right foot (899656057619 9105) Other hammer toe(s) (acquired), right foot (M20.41) Active confirmed Problem Acquired hammer toe of left foot (495399270257 9103) Other hammer toe(s) (acquired), left foot (M20.42) Active confirmed Problem Type 2 diabetes mellitus with diabetic peripheral angiopathy without gangrene (E11.51) Active confirmed Q7(A), Q8(2B), Q9(1B,2C) Vital Signs Blood pressure diastolic 70 mm Hg 11/03/2024 Height 4ft 5in in 02/01/2025 Blood pressure systolic 120 mm Hg 11/03/2024 Weight 92 lbs 02/01/2025 BMI 23.02 kg/m2 02/01/2025 Procedures Procedure Date Ordered Date Performed Result Body Sit e 64077-JIJMIOC NAIL, 1-08/01/2024 N/A 67393-FVJF SKIN LESIONS, OVER 4 08/01/2024 N/A C8812-OXVEZPIY DYSTROPHIC NAILS ANY # 08/01/2024 N/A 50836-WMWLIHV NAIL, 1-5 11/03/2024 N/A 17286-EJMF SKIN LESIONS, OVER 4 11/03/2024 N/A U4263-MGDSHBTR DYSTROPHIC NAILS ANY # 11/03/2024 N/A 24191-UCSQVGF NAIL, 1-5 02/01/2025 N/A 09225-ZWCB SKIN LESIONS, OVER 4 02/01/2025 N/A Y7621-QIODJPAY DYSTROPHIC NAILS ANY # 02/01/2025 N/A Encounters Encounter Location Date Provider Diagnosis [facility] [address] [address] 08/01/2024 Bayron Jim Type 2 diabetes mellitus with diabetic peripheral angiopathy without gangrene E11.51 ; Tinea unguium B35.1 ; Pain in right toe(s) M79.674 ; Pain in left toe(s) M79.675 ; Other hammer toe(s) (acquired), right foot M20.41 and Other hammer toe(s) (acquired), left foot M20.[address] [address] 11/03/2024 Bayron Jim Type 2 diabetes mellitus with diabetic peripheral angiopathy without gangrene E11.51 ; Tinea unguium B35.1 ; Pain in right toe(s) M79.674 ; Pain in left toe(s) M79.675 ; Other hammer toe(s) (acquired), right foot M20.41 and Other hammer toe(s) (acquired), left foot M20.[address] [address] 02/01/2025 Bayron Jim Tinea unguium B35.1 ; Type 2 diabetes mellitus with diabetic peripheral angiopathy without gangrene E11.51 ; Pain in right toe(s) M79.674 and Pain in left toe(s) M79.[address] [address] 04/13/2024 Bayron Jim [address] [address] 05/11/2024 Bayron Jim Assessments Encounter Date Diagnosis [...] Treatment Pending Test Test Name Order Date 49344-FTZQCUH NAIL, 1-08/01/2024 23978-MOYZZZH NAIL, 1-11/03/2024 11068-TAMDXWK NAIL, 1-02/01/2025 84962-MPRS SKIN LESIONS, OVER 4 02/02/20 25 56434-YSJN SKIN LESIONS, OVER 4 08/01/20 24 48971-VOHG SKIN LESIONS, OVER 4 11/04/19 25 L1066-BTNIOTGH DYSTROPHIC NAILS ANY # C4512-QUXBQUQZ DYSTROPHIC NAILS ANY # R1437-AZHYVSIQ DYSTROPHIC NAILS ANY # Next Appt Details Provider Name:Bayron Jim , 04/27/2025 01:30:00 PM, [address] [facility], [address], [place], [address], Insurance Providers Payer Name Payer Address Payer Phone Subscriber Number Group Number Insured Name Patient Relationship to Insured Coverage Start Date Coverage End Date [facility] [employer] Claims [address] [place] [address] [id number] Shari Delgadillo Self - patient is the insured Medical (General) History Medical History History ICD Code covid-19 Diabetic High Blood Pressure Cerebral palsy Hypercholesterolemia
[2025-02-14 16:02] LABS: CDiff Gene PCR NEGATIVE (Negative)
== END 2025-02-14 14:42 | disposition home or self-care (01) ==
LOC: HO.LNP 14:41
PROVIDERS: Visit Provider Internal Medicine
DX: R19.7 Diarrhea, unspecified (principal)
CPT/HCPCS: 87177; 87209; 87493; 89055

== ENCOUNTER 2025-02-16 09:17 | Outpatient (AMB) | payer OTHER, SELFPAY ==
[2025-02-16 09:20] VITALS: BP 118/68; PULSE 89; TEMP 36.3; O2SAT 98; BMI 25.3
--- NOTE | 2025-02-16 09:20 | MHC.PC.OV ---
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 Required: No Accompanied by: Brother Allergies No Known Allergies Allergy (Verified 02/16/25 09:21) Tobacco use date assessed: 02/16/25 Dental Screening Dental Screen Date: 10/28/24 Did you have a dental visit in the last 12 months?: Yes Did you have a dental problem in the last 6 months where you did not have access to dental care?: No Was dental information given to patient?: Patient has dentist [facility] Medical History Impacted cerumen of both ears Annual physical exam Encounter for annual routine gynecological examination Colon cancer screening Avulsion fracture of metatarsal bone of left foot with routine healing Injury of right great toe Cerebral palsy Hypercholesterolemia Rosacea Hypertension Vitamin D deficiency Peripheral vascular disease Type 2 diabetes mellitus with hyperglycemia Surgical History History of brain shunt Family History Father Medical history unknown Mother Brain cancer Diabetes Hypertension Paternal Uncle Cancer Social History Housing: House Alcohol intake: never Patient Tobacco Use Status: Never used Tobacco e-Cigarette/Vaping Use: Never Used Second Hand Smoke Exposure: No service: No Current occupational status: disabled Cognitive needs: No Hearing needs: No Vision needs: No Questionnaire PHQ-9 Over the last 2 weeks, how often have you been bothered by any of the following problems? 1. Little interest or pleasure in doing things: not at all 2. Feeling down, depressed, or hopeless: not at all 3. Trouble falling or staying asleep, or sleeping too much: not at all 4. Feeling tired or having little energy: not at all 5. Poor appetite or overeating: not at all 6. Feeling bad about yourself - or that you are a failure or have let yourself or your family down: not at all 7. Trouble concentrating on things, such as reading the newspaper or watching television: not at all 8. Moving or speaking so slowly that other people could have noticed. Or the opposite - being so fidgety or restless that you have been moving around a lot more than usual: not at all 9. Thoughts that you would be better off or of hurting yourself in some way: not at all Total score: 0 Source: Developed by Drs. Jori Elias, Juani Noriega, Jagdish Cardenas and colleagues, with an educational rand from [employer]. Thrive Questionnaire Date Thrive assessed: 02/14/25 I am a: Patient What is your living situation today?: I have a steady place to live Within the past 12 months, did the food you bought not last and you didn't have the money to get more?: Never true Within the past 12 months, did you worry whether your food would run out before you got money to buy more?: Never true Do you have trouble paying for medicines?: No Do you have trouble getting transportation to medical appointments?: No Do you have trouble paying your heating and electricity bill?: No Do you have trouble taking care of your child, family member or friend?: I choose not to answer this question Do you have trouble with day-to-day activities such as bathing, preparing meals, shopping, managing finances, etc.?: I choose not to answer this question Are you currently unemployed and looking for a job?: I choose not to answer this question Are you interested in more education?: I choose not to answer this question Please select the resources that you would like help with: None Currently or been in a relationship where the following occur: No concerns reported THRIVE Score: 0 AUDIT C Alcohol Use Questionnaire (AUDIT-C) 1. How often do you have a drink containing alcohol?: Never 3. How often do you have six or more drinks on one occasion?: Never Total Score: 0 MATEO-7 AMB Questionnaire MATEO-7 Date MATEO - 7 assessed: 10/28/24 Feeling nervous, anxious, or on edge: 0 = Not at all Not being able to stop or control worryin = Not at all Worrying too much about different things: 0 = Not at all Trouble relaxin = Not at all Being so restless that it is hard to sit still: 0 = Not at all Becoming easily annoyed or irritable: 0 = Not at all Feeling afraid as if something awful might happen: 0 = Not at all Total MATEO-7 score (0-4 normal; 5-9 mild; 10-14 moderate; 15-21 severe): 0 Source: Developed by Drs. Jori Elias, Juani Noriega, Jagdish Cardenas and colleagues, with an educational rand from [employer]. Physical exam (Primary Care) Vital Signs: Last Vital Signs Temp 97.3 F 02/16/25 09:20 Pulse 89 02/16/25 09:20 BP 118/68 02/16/25 09:20 Pulse Ox 98 02/16/25 09:20 Oxygen Delivery Method Room Air 02/16/25 09:20 BMI result Body Mass Index 25.3 Tobacco/Smoking Status: Tobacco use Status Tobacco use date assessed 02/16/25 02/16/25 09:21 Patient Tobacco Use Status Never used Tobacco 02/16/25 09:21 e-Cigarette/Vaping Use Never Used 02/16/25 09:21 PHQ-9: PHQ-9 Score PHQ-9: Total score 0 02/16/25 09:40 Thrive Assessment: Date of Thrive Assessment Date Thrive assessed 02/14/25 02/16/25 09:21 Currently or been in a relationship where the following occur: No concerns reported Const General: alert; No acute distress Eyes Conjunctivae: conjunctivae normal Resp Auscultation: clear to auscultation bilaterally Cardio Rate: regular rate Rhythm: regular rhythm GI Inspection: Yes normal to inspection Extrem General: No edema Results AMB Hemoglobin A1c AMB Hemoglobin A1c 7.0 % Last Edit by Gail Webb CMA on 02/16/25 09:31 Results Reviewed Results Reviewed: Laboratory Last Values Hgb A1c (Clinic) 7.0 % (4.0-6.0) H 02/16/25 09:28 Coding Level of Care Code Est Pt Level 4 (86686) Complex EM visit Add On G2211 Diagnoses Type 2 diabetes mellitus with hyperglycemia, without long-term current use of insulin E11.65 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 Romero Code(s): E11.65 - Type 2 diabetes mellitus with hyperglycemia Category: Medical Qualifiers: Diabetes mellitus ferry terminal supervisor insulin use: without longterm use Qualified Code(s): E11.65 - Type 2 diabetes mellitus with hyperglycemia Plan: Decrease the amount of carbohydrate intake, pasta, bread, rice and potatoes are all sugar and that is aside from all the sweet stuff, remember that fruits are good but they are Sweet also. Hemoglobin A1c goal of less than 6.5. Patient is presently on Jardiance at 10 mg once a day (2) Hypertension: Code(s): I10 - Essential (primary) hypertension Category: Medical Qualifiers: Hypertension type: essential hypertension Qualified Code(s): I10 - Essential (primary) hypertension Plan: Continue with blood pressure medication. Decrease salt intake and exercise continuing with lisinopril 10 mg once a day (3) Hypercholesterolemia: Code(s): E78.00 - Pure hypercholesterolemia, unspecified Category: Medical Plan: Avoid fried foods, chicken skin, eggs, butter margarine, pastries and meat. Be it pork or beef they have a lot of cholesterol LDL goal of less than 100 and triglyceride of less than 150 patient is at goal from the blood work in October on simvastatin 40 mg once a day (4) Cerebral palsy: Code(s): G80.9 - Cerebral palsy, unspecified Category: Medical Qualifiers: Cerebral palsy type: spastic diplegic Qualified Code(s): G80.1 - Spastic diplegic cerebral palsy Plan: Stable Plan History of Present Illness The patient is a 59-year-old female presenting for a follow-up visit. She has a history of cerebral palsy, diabetes mellitus, hypertension, and hypercholesterolemia, which are being managed with medication. Her last visit in October 2024 included blood work showing normal blood count, electrolytes, and renal function, but an elevated hemoglobin A1c at 7.0, indicating suboptimal diabetes control. She also has patellofemoral arthritis of the right knee, affecting her mobility. Preventative care measures include being up to date with mammograms and a negative Cologuard test in 2022. An ultrasound for hematuria showed negative results. Health Maintenance - Mammogram: Up to date - Colon cancer screening: Cologuard test negative in 2022 Social History Review of Systems Physical Exam Results - Labs: Normal blood count, normal electrolytes, good renal function, elevated hemoglobin A1c at 7.0, normal liver function, normal folic acid levels - Imaging: Ultrasound for hematuria negative - Labs: LDL of 85 in July Plan The management plan for diabetes includes maintaining a hemoglobin A1c goal of less than 6.5, with the patient currently on Jardiance 10 mg once daily. For hypertension, the patient will continue with lisinopril 10 mg once daily. The cholesterol management plan aims for an LDL goal of less than 100 and triglycerides of less than 150, with the patient currently at goal based on October blood work, continuing simvastatin 40 mg once daily. Patient was informed and verbally consented to the use of an ambient scribe for clinic note documentation during this visit. Discussion Notes Patient Instructions Orders: Orders AMB Hemoglobin A1c Today Z13.9 - Encounter for screening, unspecified
--- OUTSIDE RECORDS SUMMARY | 2025-02-16 09:34 | XMS_ITS | Data Portability ---
Author Organization [facility], [facility] Address [address] [place] [id number] Care Team Providers Care Grommet Man Name Role Phone HIM CCA OTHER Assessment Encounter Date Assessment Date Assessment LastModified by Organization Details LastModified Time 12/23/2023 12/23/2023 I provided real -time medical direction via phone for this encounter, and was available for additional phone based assistance as needed. I have reviewed and agree with the Assessment and Plan as documented by the Mixer Pigment. We discussed the diagnostic uncertainty of home [...] to call 911- verbalized understanding of instruction [email or web address] Not available 12/23/2023 11:33:30 Plan of Treatment Reminders Order Date Submit Date Provider Last Modified By Organization Details Last Modified Time Details Appointments None recorded. Lab rapid SARS CoV 2 Ag, QL IA, respiratory specimen [email or web address] [facility], [address] [place] [address], [id number] 4 11:35:44 rapid strep group A, throat [email or web address] [facility], [address] [place] [address], [phone] 4 11:35:45 rapid flu (A+B) [email or web address] [facility], [address] [place] [address], [id number] 4 11:35:42 Referral None recorded. Procedures None recorded. Surgeries None recorded. Imaging None recorded. Medication Orders benzonatate 100 mg capsule 2023 024 [id number], [address], [place], [phone], 11:35:55 Patient TargetsNo targets recorded. Patient InstructionsNo instructions recorded. Reason for Referral None Reported. Results Created Date Observation Date Name Description Value Unit Range Abnormal Flag Note LastModifiedBy Organization Detail LastModifiedTime 12/23/19 24 12/23/2023 rapid flu (A+B) Flu negati ve Not Available [facility] ed [address] [place] [address], [phone] 12/23/2023 11:33:56 12/23/19 24 12/23/2023 rapid strep group A, throa t Strep negati ve Not Available [facility] ed [address] [place] [address], [id number] 12/23/2023 11:33:51 12/23/19 24 12/23/2023 rapid SARS CoV 2 Ag, QL IA, respi rator y speci men rapid SARS CoV 2 Ag, QL IA, respiratory specimen negati ve Not Available [facility] ed [address] [place] [address], [id number] 12/23/2023 11:33:38 Result Notes None recorded. Medical [...] Heart rate Body weight Respiratory rate Systolic And Diastolic Provider Name and Address Organization Details Last Updated DateTime 4 98.4 [degF] 142.24 cm 97 % 97 % 86 /min 42796.8 56 g 16 /min 132/74 mm[Hg] Not Available [facility] - production 4 [...] SNOMED-CT Code Diagnosis ICD10 Code Diagnosis Note 64675 Margot Crystal MD Main - [facility] [address] [place] [phone] 12/23/2023 11:15:42 12/23/2023 18:10:33 Viral upper respiratory tract infection [id number] J06.9 Advised to stay hydrated, continue OTC cough med. May gargle with warm salt water. She requested something slightly stronger for cough. Is aware benzonatat e is not covered Health Concerns Section Related Observation LastModified by Organization Detai ls LastModified Time None Recorded Concern Status LastModified by Organization Details LastModified Time None Recorded Advance Directives Directive None Recorded Payers Insurance Date Sequence Insurance Name Policy Number Policy López Covered Member ID López Member ID Guarantor Name 03/03/2024 1 [facility] - DOS ON OR AFTER 2022 - DUAL ELIGIBLE - [employer] OPTIONS AND ONE CARE (MEDICARE REPLACEMENT/ADV ANTAGE - HMO) Shari Delgadillo [id number] Shari Delgadillo Notes Date Note Type Note Provider Name and Address Organization Details Recorded Time 12/23/2023 text/html CRC Nurse Triage Notes (Waldemar Gonzales): Chief Complaints: Shortness of Breath/Dyspnea Allergies: Unknown Comments: Roving Inspector verified the member's name//address and phone number. [...] itchiness to her right ear no discharge Mixer Pigment POC Test Results from [facility] - ALS Rapid COVID antigen (1) [12:24] COVID: - Rapid influenza antigen (1) [12:24] Flu: - Rapid strep test (1) [12:24] Strep: - .................. .................. .................. .................. .................. .................. .................. ............... Mixer Pigment Note From [facility] Gray: Smartcare visit for female patient with cough. 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 Pt reports 3 days of cough with some chest congestion. Cough largely dry and unproductive. Pt also reporting some throat pain with cough and itchiness in right ear. No fevers reported. Denies CP/SOB. Pt well appearing. V/S taken and WNL. Pt afebrile. Pt swabbed for flu covid and strep, all negative. Lung sounds clear bilaterally. Abdomen soft and non tender. Consulted with [facility] [place] [place] Dr. Crystal who prescribed benzonatate for cough. Reviewed red flags for ED. Pt education provided. .................. .................. .................. .................. .................. .................. .................. ............... Disposition: Fulfilled Margot Crystal MD [address] [place] [address],[address], [place], [phone], [employer] 12/23/2023 12:26:16 OBGyn Episode No OBEpisode recorded.
--- OUTSIDE RECORDS SUMMARY | 2025-02-16 09:34 | XMS_ITS | Patient Health Record ---
Author Organization [facility] Address [address] [place] [address] Care Team Providers Care Muck Hauler Name Role Phone Uri Salazar Primary Care Provider Bayron Caruso Unavailable [phone] Allergies No Known Allergies Results Component Value [...] Problem Acquired hammer toe of right foot (5493301583309 105) Other hammer toe(s) (acquired), right foot (M20.41) Active confirmed Problem Acquired hammer toe of left foot (4371852328775 103) Other hammer toe(s) (acquired), left foot (M20.42) Active confirmed Problem Type 2 diabetes mellitus with peripheral angiopathy (683210929) Type 2 diabetes mellitus with diabetic peripheral angiopathy without gangrene (E11.51) Active confirmed Q7(A), Q8(2B), Q9(1B,2C) Vital Signs Blood pressure diastolic 70 mm Hg 11/03/2024 Height 4ft 5in in 02/01/2025 Blood pressure systolic 120 mm Hg 11/03/2024 Weight 92 lbs 02/01/2025 BMI 23.02 kg/m2 02/01/2025 Procedures Procedure Date Ordered Date Performed Result Body Sit e 21733-LRBCCAP NAIL, 1-5 08/01/2024 N/A 67841-LAGV SKIN LESIONS, OVER 4 08/01/2024 N/A T3686-SQHSWEXK DYSTROPHIC NAILS ANY # 08/01/2024 N/A 81736-DSNYMJY NAIL, 1-5 11/03/2024 N/A 30991-VXCP SKIN LESIONS, OVER 4 11/03/2024 N/A Y2689-FSHUVVRX DYSTROPHIC NAILS ANY # 11/03/2024 N/A 76315-TDAFCLD NAIL, 1-5 02/01/2025 N/A 93988-FKHZ SKIN LESIONS, OVER 4 02/01/2025 N/A F4674-GPWLDAHT DYSTROPHIC NAILS ANY # 02/01/2025 N/A Encounters Encounter Location Date Provider Diagnosis [facility] [address] [address] 08/01/2024 Bayron Jim Type 2 diabetes mellitus with diabetic peripheral angiopathy without gangrene E11.51 ; Tinea unguium B35.1 ; Pain in right toe(s) M79.674 ; Pain in left toe(s) M79.675 ; Other hammer toe(s) (acquired), right foot M20.41 and Other hammer toe(s) (acquired), left foot M20.[address] [address] 11/03/2024 Bayron Jim Type 2 diabetes mellitus with diabetic peripheral angiopathy without gangrene E11.51 ; Tinea unguium B35.1 ; Pain in right toe(s) M79.674 ; Pain in left toe(s) M79.675 ; Other hammer toe(s) (acquired), right foot M20.41 and Other hammer toe(s) (acquired), left foot M20.[address] [address] 02/01/2025 Bayron Jim Tinea unguium B35.1 ; Type 2 diabetes mellitus with diabetic peripheral angiopathy without gangrene E11.51 ; Pain in right toe(s) M79.674 and Pain in left toe(s) M79.[address] [address] 04/13/2024 Bayron Jim [address] [address] 05/11/2024 Bayron Jim Assessments Encounter Date Diagnosis [...] Treatment Pending Test Test Name Order Date 99617-LEDRQUM NAIL, 1-08/01/2024 42507-OJBGBOZ NAIL, 1-11/03/2024 76633-EFYIVOG NAIL, 1-02/01/2025 69363-CFDA SKIN LESIONS, OVER 4 02/02/20 25 69522-BUKX SKIN LESIONS, OVER 4 08/01/20 24 11114-XNMF SKIN LESIONS, OVER 4 04/03/20 25 W5247-BBWLSPKB DYSTROPHIC NAILS ANY # J7046-ILWDGHGH DYSTROPHIC NAILS ANY # T8569-IGDDSTSD DYSTROPHIC NAILS ANY # Next Appt Details Provider Name:Bayron Jim , 04/27/2025 01:30:00 PM, [address] [facility], [address], [place], [address], Insurance Providers Payer Name Payer Address Payer Phone Subscriber Number Group Number Insured Name Patient Relationship to Insured Coverage Start Date Coverage End Date [facility] [employer] Claims [address] [place] [id number] Shari Delgadillo Self - patient is the insured Medical (General) History Medical History History ICD Code covid-19 Diabetic High Blood Pressure Cerebral palsy Hypercholesterolemia
== END 2025-02-16 09:55 | disposition home or self-care (01) ==
LOC: HO.HMCH 09:17
PROVIDERS: PCP Internal Medicine; Visit Provider Internal Medicine
DX: E11.65 Type 2 diabetes mellitus with hyperglycemia (principal); I10 Essential (primary) hypertension; E78.00 Pure hypercholesterolemia, unspecified; G80.1 Spastic diplegic cerebral palsy; Z13.9 Encounter for screening, unspecified

== ENCOUNTER → 2025-02-16 09:17 | Outpatient (BNVA) | payer OTHER, SELFPAY | PROVIDERS: PCP Internal Medicine; Visit Provider Internal Medicine | DX: E11.65 Type 2 diabetes mellitus with hyperglycemia (principal); I10 Essential (primary) hypertension; E78.00 Pure hypercholesterolemia, unspecified; G80.1 Spastic diplegic cerebral palsy | CPT/HCPCS: 83036; 96127; 99212 ==

== ENCOUNTER 2025-05-22 16:15 | Outpatient (AMB) | payer OTHER, SELFPAY ==
[2025-05-22 16:37] VITALS: BP 122/60; PULSE 78; RESP 18; TEMP 36.2; O2SAT 97; BMI 25.1
--- NOTE | 2025-05-22 16:37 | A.OFFPC_ITS ---
Vital Signs 05/22/25 16:37 Height 4 ft 5 in Weight 100 lb 4.965 oz BMI 25.1 BP 122/60 Blood Pressure Location Rt brachial Position Sitting Respiration 18 Pulse 78 Pulse Source Pulse Oximeter Temp 97.1 F Temp Source Temporal Artery Scan Pulse Oximetry (%) 97 Oxygen Delivery Method Room Air Intake Visit Reasons: Shingles Solid Waste Facility Supervisor Required: No Accompanied by: Self / Same As Patient Allergies No Known Allergies Allergy (Verified 05/22/25 16:38) Tobacco use date assessed: 05/22/25 Dental Screening Dental Screen Date: 05/22/25 Did you have a dental visit in the last 12 months?: Yes Did you have a dental problem in the last 6 months where you did not have access to dental care?: No Was dental information given to patient?: Patient has dentist HPI HPI Comments History of Present Illness Details The patient is a 59-year-old female presenting with a rash and suspected shingles. The rash was first noticed on May 14, following a dental procedure four days prior, during which the patient was prescribed a higher dose of amoxicillin than usual. Initially, the rash appeared as red blotches on the skin, and a coffee maker, after consultation with a doctor, diagnosed it as shingles. The patient completed a seven-day course of valacyclovir, which was administered three times daily, and reported improvement in the rash with no associated pain, only mild itching. The rash was localized to the right side of the body, with no lesions on the opposite side. There is uncertainty regarding the patient's history of chickenpox and whether she has received the shingles vaccine. [facility] Medical History Impacted cerumen of both ears Annual physical exam Encounter for annual routine gynecological examination Colon cancer screening Avulsion fracture of metatarsal bone of left foot with routine healing Injury of right great toe Cerebral palsy Hypercholesterolemia Rosacea Hypertension Vitamin D deficiency Peripheral vascular disease Type 2 diabetes mellitus with hyperglycemia Surgical History History of brain shunt Family History Father Medical history unknown Mother Brain cancer Diabetes Hypertension Paternal Uncle Cancer Social History Housing: House Alcohol intake: never Patient Tobacco Use Status: Never used Tobacco e-Cigarette/Vaping Use: Never Used Second Hand Smoke Exposure: No service: No Current occupational status: disabled Cognitive needs: No Hearing needs: No Vision needs: No Questionnaire Thrive Questionnaire Date Thrive assessed: 02/14/25 I am a: Patient What is your living situation today?: I have a steady place to live Within the past 12 months, did the food you bought not last and you didn't have the money to get more?: Never true Within the past 12 months, did you worry whether your food would run out before you got money to buy more?: Never true Do you have trouble paying for medicines?: No Do you have trouble getting transportation to medical appointments?: No Do you have trouble paying your heating and electricity bill?: No Do you have trouble taking care of your child, family member or friend?: I choose not to answer this question Do you have trouble with day-to-day activities such as bathing, preparing meals, shopping, managing finances, etc.?: I choose not to answer this question Are you currently unemployed and looking for a job?: I choose not to answer this question Are you interested in more education?: I choose not to answer this question Please select the resources that you would like help with: None Currently or been in a relationship where the following occur: No concerns reported THRIVE Score: 0 MATEO-7 AMB Questionnaire MATEO-7 Date MATEO - 7 assessed: 10/28/24 Source: Developed by Drs. Jori Elias, Juani Noriega, Jagdish Cardenas and colleagues, with an educational rand from [email or web address]. Review of Systems Const Details: Positives besides what was mentioned in HPI are in BOLD Constitutional: No Weight Change, No Fever, No Chills, No Night Sweats, No Fatigue, No Malaise ENT/Mouth: No Hearing Changes, No Ear Pain, No Nasal Congestion, No Sinus Pain, No Hoarseness, No sore throat, No Rhinorrhea, No Swallowing Difficulty Eyes: No Eye Pain, No Swelling, No Redness, No Foreign Body, No Discharge, No Vision Changes Cardiovascular: No Chest Pain, No SOB, No PND, No Dyspnea on Exertion, No Orthopnea, No Claudication, No Edema, No Palpitations Respiratory: No Cough, No Sputum, No Wheezing, No Smoke Exposure, No Dyspnea Gastrointestinal: No Nausea, No Vomiting, No Diarrhea, No Constipation, No Pain, No Heartburn, No Anorexia, No Dysphagia, No Hematochezia, No Melena, No Flatulence, No Jaundice Genitourinary: No Dysmenorrhea, No DUB, No Dyspareunia, No Dysuria, No Urinary Frequency, No Hematuria, No Urinary Incontinence, No Urgency, No Flank Pain, No Urinary Flow Changes, No Hesitancy Musculoskeletal: No Arthralgias, No Myalgias, No Joint Swelling, No Joint Stiffness, No Back Pain, No Neck Pain, No Injury History Skin: No Skin Lesions, No Pruritis, No Hair Changes, No Breast/Skin Changes, No Nipple Discharge Neuro: No Weakness, No Numbness, No Paresthesias, No Loss of Consciousness, No Syncope, No Dizziness, No Headache, No Coordination Changes, No Recent Falls Psych: No Anxiety/Panic, No Depression, No Insomnia, No Personality Changes, No Delusions, No Rumination, No SI/HI/AH/VH, No Social Issues, No Memory Changes, No Violence/Abuse Hx., No Eating Concerns Heme/Lymph: No Bruising, No Bleeding, No Transfusions History, No Lym phadenopathy Endocrine: No Polyuria, No Polydipsia, No Temperature Intolerance Physical exam (Primary Care) Vital Signs: Last Vital Signs Temp 97.1 F 05/22/25 16:37 Pulse 78 05/22/25 16:37 Resp 18 05/22/25 16:37 BP 122/60 05/22/25 16:37 Pulse Ox 97 05/22/25 16:37 Oxygen Delivery Method Room Air 05/22/25 16:37 BMI result Body Mass Index 25.1 Tobacco/Smoking Status: Tobacco use Status Tobacco use date assessed 05/22/25 05/22/25 16:48 Patient Tobacco Use Status Never used Tobacco 05/22/25 16:48 e-Cigarette/Vaping Use Never Used 05/22/25 16:48 Thrive Assessment: Date of Thrive Assessment Date Thrive assessed 02/14/25 05/22/25 16:48 Currently or been in a relationship where the following occur: No concerns reported Const Other: Pertinent findings are in BOLD GENERAL APPEARANCE NAD, activity normal for age, well developed/ well nourished, no cyanosis, pallor, or diaphoresis. EYES lids/conjunctiva normal. EARS/NOSE/THROAT Mucous membranes moist, nares normal, lips/teeth normal uvula midline without oral pharyngeal erythema, exudate or swelling TMs normal bilaterally. No lymphangitis/lymphedema. HEAD/NECK normocephalic atraumatic, no facial trauma, neck is supple. RESPIRATORY respiratory effort normal, speaks in full sentences, no tripod position, no accessory muscle use. Lungs clear to auscultation without rhonchi, wheezes, rales CARDIAC Regular rate and rhythm, no edema. ABDOMINAL Soft, ND/NT. No evidence of fluid wave. No pulsatile masses on exam, rebound tenderness, Mccann sign or pain over Mcburney's point. MUSCLES/EXTREMITIES No abnormal range of motion, no swelling. SKIN Warm, pink and dry. No rashes, dermatoses, petechiae or lesions. Small healing papules on the right side of the patient posterior and anteriror hip. NEUROLOGICAL Speech is clear and appropriate. Normal level of consciousness. Gait and coordination are normal. 5/5 strength in all extremities. PSYCH Normal mood and affect. Judgement/competence is appropriate Coding Level of Care Code Est Pt Level 3 (15622) Diagnoses Rash R21 Assessment & Plan Assessment & Plan (1) Rash: Code(s): R21 - Rash and other nonspecific skin eruption Category: Medical Plan: Patient skin rash is healing well. She already completed Valcyclovir course. Advised patient to check with Dr. Salazar in case she needs to take Shingles vaccine. Advised on using OTC itch cream. Plan I discussed with the patient that the rash is likely shingles, given its ap pearance and distribution on one side of the body. I recommended monitoring the rash and considering a shingles vaccine to prevent future outbreaks. I advised using [id number] hydrocortisone cream for itching relief and suggested discussing vaccination with her primary care provider during the upcoming follow-up.
--- OUTSIDE RECORDS SUMMARY | 2025-05-22 20:33 | XMS_ITS | Encounter Summary ---
Author Organization [facility], [facility] Address [address] [place] [address] Encounters * CPT with Medical [facility] at [place] on 2025-04-29 { reasonForRequest : cold like symptoms , patientReports : Cough , denies :[ Increased work of breathing/labored with or without fever , Unable to speak in full sentences without distress , Discoloration of skin -cyanosis , Needs to sleep sitting up, can t catch breath , Shortness of breath in setting of confusion , Cough, fever greater than 2 days , Lower extremity swelling , History of asthma, increased use of inhaler , COPD , COVID Exposure , Sputum increase , Shortness of breath with exertion , Pain with inspiration ], chiefComplaints : Common Cold , pmh : Other", allergies : No Known Drug Allergies , otherAllergies : , painAssessment : , visitOutcome : , additionalComments : Other PMH: cerebral palsy\n59 y.o female complains of Common Cold\n\nBrother reporting symptoms:\nReporting dry persistent cough - no phlegm since last night \nReports nasal congestion and sneezing\nReports temperature as 99.8F \nDenies chills/body aches, nausea/vomiting, SOB, chestpain \nNo PMH of COPD/Asthma or kidney issues \nNot on anticoagulation \nNo known COVID exposure\n\nI provided information on the mobile health provider response time and advised the patient and/or ca regiver to monitor reported signs and symptoms. I discussed the warning signs of when to seek emergency care. } CANDIDA responds to the listed address for a 59 yof w/ a c/c of cold symptoms. Upon arrival on scene, pt is found seated on the sofa in the living room of the apartment where shelives alone. She is wearing a mask, but is well-appearing w/ no ashen or meneses color noted, no stridor or sonorous respirations present, no facial droop and no one-sided weakness are observed, and sheis not bleeding anywhere. Pt has cerebral palsy and holds her UEs at her baseline, mildly contracted to her body and she is unable to sit up straight or straighten her legs fully. She makes eye contact and greets MI. Her brother is on scene as well. He lives downstairs and stays w/ the pt once pt's YOUTH AGENT leaves for the day. He tells [facility] the pt developed a dry, hacking cough last night. He admits he is very protective and nervous w/ her comorbidities and knows when she says she isn't feeling wellthat she is actually sick. Pt says she has had a lot of sinus congestion w/ watery drainage and a dry cough. She denies fevers/chills, n/v/d, urinary symptoms, earl, or abd pain. She is able to eat and drink ok and is staying well hydrated. She says she did go play [employer] today, but has noknown sick contacts recently. Brother tells and shows [facility] he has been giving the pt OTC diabetic tussin for cough suppression and it seems to be working. She normally takes Tylenol when she is in pain or has fevers. [facility] discusses treatment plan w/ pt and her brother to include continued supportive care based on her current condition and pending the results of the COVID/flu test and any further recommendations from the [facility]. Both are amendable to the plan. [facility] swabs pt for COVID/flu and vital signs are obtained. Pt is normotensive and afebrile. Physical exam is not concerning and lung sounds are clear. COVID/flu are negative. [facility] contacts [facility] and discusses the above. [facility] agrees w/ continued supportive care w/ a recommendation for re-evaluation if shedoes not feel better in a few days and to seek emergency care if she gets severe cp, sob, uncontroll ed n/v/d, or high fevers or seizures/ams. Pt and brother give their verbal understanding. [facility] is clear. Report completed by SHAGGY Mckeon [id number]. IV_(FLUIDS_AND/OR_MEDICATION), MEDICATION_IM, POC_BLOODWORK Written by [facility] on 2025-04-29
--- OUTSIDE RECORDS SUMMARY | 2025-05-22 20:33 | XMS_ITS | Continuity of Care Document ---
Author Name instED, Medical Address [address] [place] [id number] Organization Unknown Address [address] [place] [address] Medications No known medications Problems No known problems
--- OUTSIDE RECORDS SUMMARY | 2025-05-22 20:34 | XMS_ITS | Encounter Summary ---
Author Organization [facility] Address [address] [place] [address] Encounters * CPT with Medical inst[facility] at [facility] on 2025-05-14 { reasonForRequest : Patient has a Red rash developing , random parts of body, -Dental procedure done -and has pres meds. , patientReports : , denies :[ Rhodes Flash, circumferential rhodes , Rhodes reported with black tissue to the area , Open skin area after a fall with uncontrolled bleeding , Abscess/inf ection with streaking noted, presence of fever or without ], chiefComplaints : R scott , pmh : Diabetes Mellitus Type 2, Hypertension, Hyperlipidemia , a llergies : No Known Drug Allergies , otherAllergies : , mayank nAssessment : , visitOutcome : , additionalComments : 59 y.o female complains of Rash\n\nBrother reporting symptoms. Dental procedure Thursday. Noticed rash today - below her butt and on R flank and her back. Red blotches - Itchy and painful. No open areas or bleeding. Prescribed amoxicillin 875mg BID after procedure. Has taken prior with no reaction. Has a mouthwash as well - chlorohexidine - swish and spit. Has never had chicken pox - unsure of the vaccine. No new laundry detergents or soaps used. No changes in diet. No gardening. Fungal rash cream for her ximena area - uses daily. No allergy symptoms - denies throat swelling, difficulty breathing/swallowing, rash around her mouth/neck, wheezing. Reviewed RED flags, brother in agreement. \n\nI provided information on the mobile health provider response time and advised the patient and/or caregiver to monitor reported signs and symptoms. I discussed the warning signs of when to seek emergency care. } CANDIDA responds to the listed address for a 59 yof w/ c/c of rash. Upon arrival on scene, pt is found seated on the sofa in her home awaiting [facility] arrival. She smiles and laughs on [facility] entry. NAD is present, no stridor or sonorous respirations, facial droop, one-sided weakness, or major bleeding are observed. Pt has cerebral palsy and arm, hand, and leg contractures are at pt's baseline and she is able to move them normally. Pt's brother tells VERONICA her BULLDOZER PRESS OPERATOR noticeda rash on pt's stomach, lower back, and under the R gluteal fold while she was bathing the pt today. Pt had a recent dental procedure and was placed on amoxicillin and a chlorhexidine swish and spit mouth rinse post procedure. ABX have been held today until [facility] evaluation could be completed. Pt tells MIRaj she felt weird in the places where the rash is today, but is unable to visualize t he spots on her own and didn't know a rash was there. She is able to ambulate, w/ assistance from her brother, at her baseline, to the bathroom for [facility] to observe the rash. She is then able to ambulate back to the sofa and sit as she was. She denies any fevers/chills, painful itching sensation, or tingling in the area today. [facility] informs pt to wash her hands well after showing MIH the rash and brother to wear a mask and wash his hands as well. Both are compliant. Ddx: Shingles, abx reaction, dermatitis [facility] visually observes the affected area and obtains photos for [facility] inspection. [facility] notes blotchy rash spots w/ clear fluid-filled vesicles on pt's R lumbar and R flank region. Nothing is noted below the gluteal muscle on the posterior R thigh and no other areas of said rash are observed. [facility] obtains vital signs and pt is normotensive, not hypoxic, and has a slight bump in temp at 99.0. Physical exam is limited to the rash and lack of other physical complaints from the pt today. [facility] contacts [facility] and discusses the above. [facility] agrees w/ shingles observation and prescribes valacyclovirPO BID for pt and Tylenol for pain and fever and calls in 7-day course to pt's pharmacy. After confirming pt has NKDA, [facility] administers 1G valacyclovir x 1 tablet and 500mg x2 tablets Tylenol PO for pt and she takes all meds in the presence of [facility]. [facility] informs pt to keep the rash clean w/ warm soapywater and allow it to dry. Application of dry bandaging can be applied if pt desires. Pt is also informed the vesicles will break open and scab over and to not touch or scratch the area. If she does,she is instructed to wash her hands w/ soap and water thoroughly. Pt and brother are informed of the warning signs of when to seek emergency care and they both thank [facility] for coming. [facility] is clear. Report completed by SHAGGY Mckeon [id number]. PO_MEDICATION Written by Medical inst[facility] on 2025-05-14
--- OUTSIDE RECORDS SUMMARY | 2025-05-22 20:34 | XMS_ITS | Patient Health Record ---
[facility] Address [address] [place] [address] Care Team Providers Care Melting Supervisor Name Role Phone Uri Salazar Primary Care Provider Bayron Caruso Unavailable [phone] Allergies No Known Allergies Results Component Value Reference Range Notes HEMOGLOBIN A1C (GLYCOHEMOGLO BIN) Reviewed date:08/01/2024 02:36:57 PM Interpretation: Performing Lab: Notes/Report: TOTAL HEMOGLOBIN (HGBA1C) 6.5 HEMOGLOBIN A1C (GLYCOHEMOGLO BIN) Reviewed date:11/03/2024 01:40:45 PM Interpretation: Performing Lab: Notes/Report: HEMOGLOBIN A1C % (HH) 6.5 HEMOGLOBIN A1C (GLYCOHEMOGLO BIN) Reviewed date:04/27/2025 01:36:16 PM Interpretation: Performing Lab: Notes/Report: HEMOGLOBIN A1C % (HH) 6.8 HEMOGLOBIN A1C (GLYCOHEMOGLO BIN) Reviewed date:02/01/2025 01:16:06 PM Interpretation: Performing Lab: Notes/Report: HEMOGLOBIN A1C % (HH) 6.5 Reason For Referral No Information Medications Medication SIG (Take, Route, Frequency, Duration) Notes Start Date End Date Status Simvastatin Active Folic Acid Active Extra Depth Orthopedic Shoes, (1) Pair With (3) Pair Custom Heat Molded Multidensity Innersoles Dx: NIDDM/PVD(E11.51), Hammertoe Foot Deformity(M20.41,M20.4 2), Preulcerative Skin Lesion(s)(L85.1) Wear Daily; Duration: 365 days Active Lisinopril Active Jardiance Active metFORMIN HCl Not-Ta hemal Vitamin D Active Vitamin B12 Active Amoxicillin [...] Problem Acquired hammer toe of right foot (3885582508782 105) Other hammer toe(s) (acquired), right foot (M20.41) Active confirmed Problem Acquired hammer toe of left foot (2582347642161 103) Other hammer toe(s) (acquired), left foot (M20.42) Active confirmed Problem Type 2 diabetes mellitus with peripheral angiopathy (005529666) Type 2 diabetes mellitus with diabetic peripheral angiopathy without gangrene (E11.51) Active confirmed Q7(A), Q8(2B), Q9(1B,2C) Vital Signs Blood pressure diastolic 70 mm Hg 11/03/2024 Height 4ft 5 in in 04/27/2025 Blood pressure systolic 120 mm Hg 11/03/2024 Weight 92 lbs 04/27/2025 BMI 23.02 kg/m2 04/27/2025 Procedures Procedure Date Ordered Date Performed Result Body Sit e 80024-DBCBYNE NAIL, 1-5 08/01/2024 N/A 78976-MWDU SKIN LESIONS, OVER 4 08/01/2024 N/A P8642-YRMHXEFL DYSTROPHIC NAILS ANY # 08/01/2024 N/A 53617-GAMUEFD NAIL, 1-5 11/03/2024 N/A 17057-UUVJ SKIN LESIONS, OVER 4 11/03/2024 N/A W8993-RUWWMHBS DYSTROPHIC NAILS ANY # 11/03/2024 N/A 64658-CFFLMWA NAIL, 1-5 02/01/2025 N/A 48981-HMEP SKIN LESIONS, OVER 4 02/01/2025 N/A U0189-DFYWVJLQ DYSTROPHIC NAILS ANY # 02/01/2025 N/A 80474-HLSPAQI NAIL, 1-5 04/27/2025 N/A 70142-EIGR SKIN LESIONS, OVER 4 04/27/2025 N/A D2274-YBVKDHEX DYSTROPHIC NAILS ANY # 04/27/2025 N/A Encounters Encounter Location Date Provider Diagnosis [address] [address] 08/01/2024 Bayron Jim Type 2 diabetes mellitus with diabetic peripheral angiopathy without gangrene E11.51 ; Tinea unguium B35.1 ; Pain in right toe(s) M79.674 ; Pain in left toe(s) M79.675 ; Other hammer toe(s) (acquired), right foot M20.41 and Other hammer toe(s) (acquired), left foot M20.[address] [address] 11/03/2024 Bayron Jim Type 2 diabetes mellitus with diabetic peripheral angiopathy without gangrene E11.51 ; Tinea unguium B35.1 ; Pain in right toe(s) M79.674 ; Pain in left toe(s) M79.675 ; Other hammer toe(s) (acquired), right foot M20.41 and Other hammer toe(s) (acquired), left foot M20.[address] [address] 02/01/2025 Bayron Jim Tinea unguium B35.1 ; Type 2 diabetes mellitus with diabetic peripheral angiopathy without gangrene E11.51 ; Pain in right toe(s) M79.674 and Pain in left toe(s) M79.[address] [address] 04/27/2025 Bayron Jim Tinea unguium B35.1 ; Type 2 diabetes mellitus with diabetic peripheral angiopathy without gangrene E11.51 ; Pain in right toe(s) M79.674 ; [...] gangrene (ICD-10 - E11.51) Q7(A), Q8(2B), Q9(1B,2C) 04/27/2025 Tinea unguium (ICD-10 - B35.1) 04/27/2025 Type 2 diabetes mellitus with diabetic peripheral angiopathy without gangrene (ICD-10 - E11.51) Q7(A), Q8(2B), Q9(1B,2C) 02/01/2025 Pain in right toe(s) (ICD-10 - M79.674) 04/27/2025 Pain in right toe(s) (ICD-10 - M79.674) 08/01/2024 Pain in right toe(s) (ICD-10 - M79.674) 11/03/2024 Pain in right toe(s) (ICD-10 - M79.674) 02/01/2025 Pain in left toe(s) (ICD-10 - M79.675) 04/27/2025 Pain in left toe(s) (ICD-10 - M79.675) [...] INSTRUCTIONS.p df (DIABETIC FOOT CARE INSTRUCTIONS.p df) 04/27/2025 Other hammer toe(s) (acquired), right foot (ICD-10 - M20.41) Patient Educated with: DIABETIC FOOT CARE INSTRUCTIONS.p df (DIABETIC FOOT CARE INSTRUCTIONS.p df) 04/27/2025 Other hammer toe(s) (acquired), left foot (ICD-10 - M20.42) 11/03/2024 Other hammer toe(s) (acquired), left foot (ICD-10 - M20.42) 08/01/2024 Other hammer toe(s) (acquired), left foot (ICD-10 - M20.42) Plan Of Treatment Pending Test Test Name Order Date 52468-QLAIFBK NAIL, 1-5 08/01/2024 44509-HPESSXY NAIL, 1-5 11/03/2024 36260-JIDOLOD NAIL, 1-5 02/01/2025 92137-TNXKULM NAIL, 1-5 04/27/2025 14918-MVRM SKIN LESIONS, OVER 4 04/27/20 25 38843-QNVN SKIN LESIONS, OVER 4 02/02/20 25 10834-LXIK SKIN LESIONS, OVER 4 11/04/19 25 77402-WJWX SKIN LESIONS, OVER 4 08/01/20 24 D3937-RPVMBWPW DYSTROPHIC NAILS ANY # B3689-GJUBQNEI DYSTROPHIC NAILS ANY # V0545-JXVUBTWZ DYSTROPHIC NAILS ANY # A8831-DCKFSROF DYSTROPHIC NAILS ANY # Next Appt Details Provider Name:Bayron Calderon Hernán , 08/14/2025 02:15:00 PM, [address], [address], [place], [address], Insurance Providers Payer Name Payer Address Payer Phone Subscriber Number Group Number Insured Name Patient Relationship to Insured Coverage Start Date Coverage End Date [facility] [employer] Claims [address] [place] [id number] Shari Delgadillo Self - patient is the insured Medical (General) History Medical History History ICD Code covid-19 Diabetic High Blood Pressure Cerebral palsy Hypercholesterolemia
--- OUTSIDE RECORDS SUMMARY | 2025-05-22 20:34 | XMS_ITS | Continuity of Care Document ---
Author Name instED, Medical Address [address] [place] [id number] Organization Unknown Address [address] [place] [address] Medications No known medications Problems No known problems
== END 2025-05-22 17:03 | disposition home or self-care (01) ==
LOC: HO.HMCH 16:16
PROVIDERS: PCP Internal Medicine; Visit Provider Internal Medicine
DX: R21 Rash and other nonspecific skin eruption (principal)

== ENCOUNTER → 2025-05-22 16:15 | Outpatient (BNVA) | payer OTHER, SELFPAY | PROVIDERS: PCP Internal Medicine; Visit Provider Internal Medicine | DX: R21 Rash and other nonspecific skin eruption (principal) | CPT/HCPCS: 99212 ==

== ENCOUNTER 2025-06-08 08:18 | Outpatient (AMB) | payer OTHER, SELFPAY ==
--- NOTE | 2025-06-08 08:22 | A.OFFPC_ITS ---
Vital Signs 06/08/25 08:23 Height 4 ft 5 in Weight 98 lb 15.801 oz BMI 24.8 BP 124/70 Blood Pressure Location Lt brachial Position Sitting Pulse 89 Pulse Source Pulse Oximeter Pulse Oximetry (%) 98 Oxygen Delivery Method Room Air Intake Visit Reasons: 3mth f/u Allergies No Known Allergies Allergy (Verified 06/08/25 08:24) Medication List - Last Reconciled 06/08/25 by Uri Salazar MD amoxicillin 2,000 mg PO 1 hour before procedure; blood sugar diagnostic (FreeStyle Lite Strips) As directed TID for blood glucose testing blood-glucose meter (FreeStyle Lite Meter kit) As directed cholecalciferol (vitamin D3) 25 mcg PO DAILY clotrimazole 1% 1 appl topical BID 4 weeks compress.stocking,knee,reg,med As directed 20-30 mm HG cyanocobalamin (vitamin B-12) 1,000 mcg PO DAILY [Diabetic Shoes As directed] empagliflozin (Jardiance) 10 mg PO DAILY folic acid 1 mg PO DAILY lancets (FreeStyle Lancets) 28 gauge topical TID 90 days lisinopril 10 mg PO DAILY miconazole nitrate 2% (Zeasorb AF) 1 appl topical DAILY simvastatin 40 mg PO DAILY Tobacco use date assessed: 05/22/25 Dental Screening Dental Screen Date: 05/22/25 HPI 3mth f/u HPI Details PAteint need diabetic shoes for prosthetic and orthotic solutions Shanika Concepcion for the DM shoes, patient has Cerebral palsy and needs shoes [facility] Medical History Impacted cerumen of both ears Annual physical exam Encounter for annual routine gynecological examination Colon cancer screening Avulsion fracture of metatarsal bone of left foot with routine healing Injury of right great toe Cerebral palsy Hypercholesterolemia Rosacea Hypertension Vitamin D deficiency Peripheral vascular disease Type 2 diabetes mellitus with hyperglycemia Surgical History History of brain shunt Family History Father Medical history unknown Mother Brain cancer Diabetes Hypertension Paternal Uncle Cancer Social History Housing: House Alcohol intake: never Patient Tobacco Use Status: Never used Tobacco Tobacco use type: Cigarette e-Cigarette/Vaping Use: Never Used Second Hand Smoke Exposure: No service: No Current occupational status: disabled Cognitive needs: No Hearing needs: No Vision needs: No Questionnaire Thrive Questionnaire Date Thrive assessed: 02/14/25 I am a: Patient What is your living situation today?: I have a steady place to live Within the past 12 months, did the food you bought not last and you didn't have the money to get more?: Never true Within the past 12 months, did you worry whether your food would run out before you got money to buy more?: Never true Do you have trouble paying for medicines?: No Do you have trouble getting transportation to medical appointments?: No Do you have trouble paying your heating and electricity bill?: No Do you have trouble taking care of your child, family member or friend?: I choose not to answer this question Do you have trouble with day-to-day activities such as bathing, preparing meals, shopping, managing finances, etc.?: I choose not to answer this question Are you currently unemployed and looking for a job?: I choose not to answer this question Are you interested in more education?: I choose not to answer this question Please select the resources that you would like help with: None Currently or been in a relationship where the following occur: No concerns reported THRIVE Score: 0 MATEO-7 AMB Questionnaire MATEO-7 Date MATEO - 7 assessed: 10/28/24 Source: Developed by Drs. Jori Elias, Juani Noriega, Jagdish Cardenas and colleagues, with an educational rand from [employer] [place]. Physical exam (Primary Care) Vital Signs: Last Vital Signs Pulse 89 06/08/25 08:23 BP 124/70 06/08/25 08:23 Pulse Ox 98 06/08/25 08:23 Oxygen Delivery Method Room Air 06/08/25 08:23 BMI result Body Mass Index 24.8 Tobacco/Smoking Status: Tobacco use Status Tobacco use date assessed 05/22/25 06/08/25 08:24 Patient Tobacco Use Status Never used Tobacco 06/08/25 08:24 Tobacco use type Cigarette 06/08/25 08:24 e-Cigarette/Vaping Use Never Used 06/08/25 08:24 Thrive Assessment: Date of Thrive Assessment Date Thrive assessed 02/14/25 06/08/25 08:24 Currently or been in a relationship where the following occur: No concerns reported Const General: alert; No acute distress Eyes Conjunctivae: conjunctivae normal Resp Auscultation: clear to auscultation bilaterally Cardio Rate: regular rate Rhythm: regular rhythm GI Inspection: Yes normal to inspection Extrem General: Yes normal to inspection and No edema Office Procedures Cerumen Removal From which ear canal was the cerumen removed: bilateral Removal: otoscope w/curette and cerumen loop/spoon Notes: patient tolerated procedure well, no complications and ear canal clear 35953-Dvd Wax Removal by Spoon/Curette Flu Questionnaire Does the patient have a severe egg allergy?: No Does the patient have severe life threatening allergies?: No Does the patient have a fever or illness today?: No Has the patient ever had Guillain-Millington Syndrome?: No Has the patient ever had any past reaction to a flu shot?: No Results AMB Hemoglobin A1c AMB Hemoglobin A1c 6.5 % Last Edit by Tiffanie Watkins CMA on 06/08/25 08 :41 Immunizations Fluarix [id number] (PF) 45 mcg (15 mcg x 3)/0.5 mL IM syringe Performing Provider: Uri Salazar MD [facility] Administered by: Tiffanie Watkins CMA on 06/08/25 08:35 Dose Route Admin Location Dispensed Lot Number Expiration Date NDC Senior Mechanical Engineer 0.5 mL IM Left Deltoid 0.5 mL [id number] 01/30/26 00912-153-03 Ommven 2 VIS Given Date VIS Provided VIS Publication Date 06/08/25 Single Vaccine 24 Eligibility Eligibility Date Funding Source Not [facility] Eligible 06/08/25 Private Results Reviewed Results Reviewed: Laboratory Last Values Hgb A1c (Clinic) 6.5 % (4.0-6.0) H 06/08/25 08:24 Coding Level of Care Code Est Pt Level 4 (26027) Complex EM visit Add On G2211 Diagnoses Type 2 diabetes mellitus with hyperglycemia, without long-term current use of insulin E11.65 Diabetes mellitus intermediate insulin use: without watermelon inspector use Essential hypertension I10 Hypertension type: essential hypertension Hypercholesterolemia E78.00 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 Romero Code(s): E11.65 - Type 2 diabetes mellitus with hyperglycemia Category: Medical Qualifiers: Diabetes mellitus intermediate insulin use: without intermediate use Qualified Code(s): E11.65 - Type 2 diabetes mellitus with hyperglycemia Plan: Decrease the amount of carbohydrate intake, pasta, bread, rice and potatoes are all sugar and that is aside from all the sweet stuff, remember that fruits are good but they are Sweet also. Hemoglobin A1c goal of less than 6.5. Patient is on Jardiance 10 mg once a day (2) Hypertension: Code(s): I10 - Essential (primary) hypertension Category: Medical Qualifiers: Hypertension type: essential hypertension Qualified Code(s): I10 - Essential (primary) hypertension Plan: Continue with blood pressure medication. Decrease salt intake and exercise continue with lisinopril 10 mg once a day (3) Hypercholesterolemia: Code(s): E78.00 - Pure hypercholesterolemia, unspecified Category: Medical Plan: Avoid fried foods, chicken skin, eggs, butter margarine, pastries and meat. Be it pork or beef they have a lot of cholesterol LDL goal of less than 100 and triglyceride of less than 150 patient is on simvastatin 40 mg once a day (4) Cerebral palsy: Code(s): G80.9 - Cerebral palsy, unspecified Category: Medical Qualifiers: Cerebral palsy type: spastic diplegic Qualified Code(s): G80.1 - Spastic diplegic cerebral palsy Plan: Supportive treatment (5) Shingles: Comment: 05/2025 Code(s): B02.9 - Zoster without complications Category: Medical Plan: Resolved (6) Impacted cerumen of both ears: Code(s): H61.23 - Impacted cerumen, bilateral Category: Medical Plan: scoop no irrigation TM intact bilateral Plan History of Present Illness The patient is a 59-year-old female with a history of cerebral palsy, diabetes mellitus, hypertension, and hypercholesterolemia presenting for a follow-up visit. Regarding her diabetes, her last hemoglobin A1c in January was 7.0%, with a more recent result of 6.5%, and her blood glucose this morning was 108 mg/dL. In May, she was seen at an urgent care center and diagnosed with shingles, for which she was prescribed an antiviral medication. The rash was located on her right side and back, and was initially painful, red, and blistering, but has since resolved and is no longer painful. This occurred approximately one month after she received a shingles vaccination. Her last complete blood work was performed in October, and she has her annual physical scheduled for July. A recent eye exam revealed small cataracts and effects of hypertension, but no diabetic retinopathy. She recently received a flu shot. [facility] Maintenance A prescription for 12 tablets of amoxicillin was sent to [facility] for prophylactic use before dental appointments. A blood test for tuberculosis will be added to the labs she is scheduled to have done in July. The patient was informed that her tetanus vaccination is due as it was last given in 2014, and this will be addressed at a future visit. The availability of the COVID-19 vaccine was discussed. Social History - The patient will be turning 60 years old tomorrow. Review of Systems - Integumentary: Reports a history of a painful, blistering rash on the right side and back, which has now resolved. Denies current pain associated with the rash. - Otologic: Reports that her ears feel dirty and itchy inside. - Cardiovascular: Denies swelling. - General: Reports feeling pretty good. Physical Exam - Skin: Examination of the right side and back reveals a resolved rash, now appearing as a scar. No active lesions or erythema. - HEENT: Otoscopic examination of bilateral ears revealed cerumen impaction, which was subsequently removed. - Extremities: No swelling noted. Results - Labs: Hemoglobin A1c was 7.0% in January and a more recent result was 6.5%. - Labs: Blood glucose was 108 mg/dL this morning. - Tests and Diagnostics: Recent ophthalmology report showed no retinopathy but did note small cataracts and effects of blood pressure. Plan Patient was informed and verbally consented to the use of an ambient scribe for clinic note documentation during this visit. 1. Herpes Zoster The patient's shingles rash, which appeared on her right side and back, is now resolved and healed to a scar with no residual pain. The infection occurred despite recent vaccination and is likely related to a lowered immune system due to her diabetes. She has been advised that the shingles vaccine should be administered one year after the active infection. 2. Diabetes Mellitus The patient's diabetes appears well-controlled, with a recent HbA1c of 6.5% and a morning fasting blood sugar of 108 mg/dL. She has a blood work request for labs to be completed before her physical exam in July. A recent eye exam confirmed no diabetic retinopathy. 3. Cataract A recent eye exam revealed small cataracts, which are not yet significant enough to warrant intervention. The patient was counseled to monitor for progressive blurring of her vision and to follow up if symptoms worsen, as replacement may be needed in the future. 4. Cerumen Impaction The patient complained of her ears feeling dirty. Examination revealed bilateral cerumen impaction, which was removed during the visit. Discussion Notes I discussed the patient's recent shingles infection, explaining it is a reactivation of the chickenpox virus that can be triggered by a weakened immune system, which can be associated with her diabetes. I noted she was fortunate that the rash resolved without lingering pain, which can be a long-term complication. I advised that she should receive the shingles vaccine one year after this infection to reduce the risk of recurrence. I reviewed her recent ophthalmology report, reassuring her that there were no signs of diabetic retinopathy, but explaining the finding of small cataracts, which are not currently severe enough for surgery. We arranged for an order for blood work to be done before her July physical, which will include a blood test for tuberculosis. I sent a prescription for amoxicillin to her pharmacy for dental prophylaxis and informed her that her tetanus vaccine is due. Finally, I performed cerumen removal from both ears. Patient Instructions - Your shingles rash has healed. - Plan to get the shingles vaccine one year from now. - Continue your current medications for diabetes, high blood pressure, and cholesterol. - A prescription for amoxicillin (12 tablets) has been sent to [facility] for you to take before your dental appointments. - You have an order for blood work to be done before your physical exam in July. - This will include a blood test for tuberculosis (TB). - Your eye doctor noted you have small cataracts. - Please let me know if your vision becomes significantly blurrier. - Your Tetanus shot is due; we will discuss this at your next visit. - COVID-19 vaccines are available at the pharmacy if you wish to get one. - Please let the office know if you have any problems before your next scheduled appointment in July. Orders: Orders Complete Blood Count Auto Diff 1 Month E11. - Type 2 diabetes mellitus with hyperglycemia Comprehensive Met. Panel 1 Month E11. - Type 2 diabetes mellitus with hyperglycemia Thyroid Stimulating Hormone 1 Month E11. - Type 2 diabetes mellitus with hyperglycemia UA CC w/rflx Micro + Cult 1 Month E11. - Type 2 diabetes mellitus with hyperglycemia, R30.0 - Dysuria T Spot TB 1 Month E11. - Type 2 diabetes mellitus with hyperglycemia AMB Hemoglobin A1c Today Z13.9 - Encounter for screening, unspecified Influenza [id number] Immunization Today Z23 - Encounter for immunization Creatinine Urine 1 Month . - Type 2 diabetes mellitus with hyperglycemia Microalbumin, Random (w Creat) 1 Month . - Type 2 diabetes mellitus with hyperglycemia Lipid Panel 1 Month E11. - Type 2 diabetes mellitus with hyperglycemia, E78.00 - Pure hypercholesterolemia, unspecified Hemoglobin A1c 1 Month E11. - Type 2 diabetes mellitus with hyperglycemia Free T4 (Free Thyroxine) 1 Month E11. - Type 2 diabetes mellitus with hyperglycemia Vitamin B12 and Folate 1 Month E11. - Type 2 diabetes mellitus with hyperglycemia Vitamin D 25-OH Total 1 Month E11. - Type 2 diabetes mellitus with hyperglycemia Medications: Refilled amoxicillin 2,000 mg PO 1 hour before procedure; 12 caps 2RF . - Type 2 diabetes mellitus with hyperglycemia
[2025-06-08 08:23] VITALS: BP 124/70; PULSE 89; O2SAT 98; BMI 24.8
--- OUTSIDE RECORDS SUMMARY | 2025-06-08 08:38 | XMS_ITS | Patient Health Record ---
Author [facility] Address [address] [place] [address] Care Team Providers Care Account Collector Name Role Phone Uri Salazar Primary Care Provider Bayron Caruso Unavailable [phone] Allergies No Known Allergies Results Component Value [...] Problem Acquired hammer toe of right foot (8458040282909 105) Other hammer toe(s) (acquired), right foot (M20.41) Active confirmed Problem Acquired hammer toe of left foot (3196031789146 103) Other hammer toe(s) (acquired), left foot (M20.42) Active confirmed Problem Type 2 diabetes mellitus with peripheral angiopathy (848444215) Type 2 diabetes mellitus with diabetic peripheral angiopathy without gangrene (E11.51) Active confirmed Q7(A), Q8(2B), Q9(1B,2C) Vital Signs Blood pressure diastolic 70 mm Hg 11/03/2024 Height 4ft 5 in in 04/27/2025 Blood pressure systolic 120 mm Hg 11/03/2024 Weight 92 lbs 04/27/2025 BMI 23.02 kg/m2 04/27/2025 Procedures Procedure Date Ordered Date Performed Result Body Sit e 60861-HPJOABN NAIL, 1-5 08/01/2024 N/A 45776-OGMY SKIN LESIONS, OVER 4 08/01/2024 N/A S9352-CKGHHGIG DYSTROPHIC NAILS ANY # 08/01/2024 N/A 79575-MRSLWUE NAIL, 1-5 11/03/2024 N/A 97701-MQNV SKIN LESIONS, OVER 4 11/03/2024 N/A L7789-ELCCNAJA DYSTROPHIC NAILS ANY # 11/03/2024 N/A 93633-IRCJOJV NAIL, 1-5 02/01/2025 N/A 85317-LNQV SKIN LESIONS, OVER 4 02/01/2025 N/A K6487-DVFXUMEF DYSTROPHIC NAILS ANY # 02/01/2025 N/A 59594-RNIGYGF NAIL, 1-5 04/27/2025 N/A 94496-MLCR SKIN LESIONS, OVER 4 04/27/2025 N/A U4903-UJKEGVOH DYSTROPHIC NAILS ANY # 04/27/2025 N/A Encounters Encounter Location Date Provider Diagnosis [address] [address] 08/01/2024 Bayron Jim Type 2 diabetes mellitus with diabetic peripheral angiopathy without gangrene E11.51 ; Tinea unguium B35.1 ; Pain in right toe(s) M79.674 ; Pain in left toe(s) M79.675 ; Other hammer toe(s) (acquired), right foot M20.41 and Other hammer toe(s) (acquired), left foot M20.[address] [address] 11/03/2024 Bayron Jim Type 2 diabetes mellitus with diabetic peripheral angiopathy without gangrene E11.51 ; Tinea unguium B35.1 ; Pain in right toe(s) M79.674 ; Pain in left toe(s) M79.675 ; Other hammer toe(s) (acquired), right foot M20.41 and Other hammer toe(s) (acquired), left foot M20.[address] [address] 02/01/2025 Bayron Jim Tinea unguium B35.1 ; Type 2 diabetes mellitus with diabetic peripheral angiopathy without gangrene E11.51 ; Pain in right toe(s) M79.674 and Pain in left toe(s) M79.[address] [address] 04/27/2025 Bayron Jim Tinea unguium B35.1 ; [...] Treatment Pending Test Test Name Order Date 85016-KPOENSB NAIL, 1-5 08/01/2024 35494-XDMCAKG NAIL, 1-5 11/03/2024 99382-MWODNMC NAIL, 1-5 02/01/2025 38364-QBHLZMY NAIL, 1-5 04/27/2025 99540-ZUAI SKIN LESIONS, OVER 4 04/27/20 25 88510-YDCB SKIN LESIONS, OVER 4 02/02/20 25 26415-OLID SKIN LESIONS, OVER 4 11/04/19 25 53116-LSRS SKIN LESIONS, OVER 4 08/01/20 24 T8634-ZAPEYUHO DYSTROPHIC NAILS ANY # W7811-MSRFSAYQ DYSTROPHIC NAILS ANY # R0119-PURHZFQP DYSTROPHIC NAILS ANY # J2867-BPXFUMWG DYSTROPHIC NAILS ANY # Next Appt Details Provider Name:Bayron Calderon Hernán , 08/14/2025 02:15:00 PM, [address], [address], [place], [address], Insurance Providers Payer Name Payer Address Payer Phone Subscriber Number Group Number Insured Name Patient Relationship to Insured Coverage Start Date Coverage End Date [facility] [employer] Claims [address] [place] [address] [id number] Shari Delgadillo Self - patient is the insured Medical (General) History Medical History History ICD Code covid-19 Diabetic High Blood Pressure Cerebral palsy Hypercholesterolemia
== END 2025-06-08 10:03 | disposition home or self-care (01) ==
LOC: HO.HMCH 08:19
PROVIDERS: PCP Internal Medicine; Visit Provider Internal Medicine
DX: E11.65 Type 2 diabetes mellitus with hyperglycemia (principal); G80.1 Spastic diplegic cerebral palsy; I10 Essential (primary) hypertension; E78.00 Pure hypercholesterolemia, unspecified; B02.9 Zoster without complications; H61.23 Impacted cerumen, bilateral; Z23 Encounter for immunization

== ENCOUNTER → 2025-06-08 08:18 | Outpatient (BNVA) | payer OTHER, SELFPAY | PROVIDERS: PCP Internal Medicine; Visit Provider Internal Medicine | DX: B02.9 Zoster without complications (principal); E11.65 Type 2 diabetes mellitus with hyperglycemia; I10 Essential (primary) hypertension; E78.00 Pure hypercholesterolemia, unspecified; G80.1 Spastic diplegic cerebral palsy; H61.23 Impacted cerumen, bilateral; Z23 Encounter for immunization | CPT/HCPCS: 69210; 83036; 90471; 90656; 99212 ==

== ENCOUNTER 2025-06-20 14:43 | Outpatient (AMB) | payer OTHER, SELFPAY ==
[2025-06-20 15:00] VITALS: BP 130/72; PULSE 67; TEMP 36.8; O2SAT 99
--- NOTE | 2025-06-20 15:00 | MHC.PC.OV ---
Vital Signs 06/20/25 15:00 Height 4 ft 5 in BP 130/72 Blood Pressure Location Lt brachial Position Sitting Pulse 67 Pulse Source Pulse Oximeter Temp 98.3 F Temp Source Temporal Artery Scan Pulse Oximetry (%) 99 Oxygen Delivery Method Room Air Intake Visit Reasons: (L) leg above knee pain Accompanied by: Brother Allergies No Known Allergies Allergy (Verified 06/20/25 15:00) Medication List - Last Reconciled 06/20/25 by Doris Hicks PA-C amoxicillin 2,000 mg PO 1 hour before procedure; blood sugar diagnostic (FreeStyle Lite Strips) As directed TID for blood glucose testing blood-glucose meter (FreeStyle Lite Meter kit) As directed cholecalciferol (vitamin D3) 25 mcg PO DAILY clotrimazole 1% 1 appl topical BID 4 weeks compress.stocking,knee,reg,med As directed 20-30 mm HG cyanocobalamin (vitamin B-12) 1,000 mcg PO DAILY [Diabetic Shoes with inserts As directed] empagliflozin (Jardiance) 10 mg PO DAILY folic acid 1 mg PO DAILY lancets (FreeStyle Lancets) 28 gauge topical TID 90 days lisinopril 10 mg PO DAILY miconazole nitrate 2% (Zeasorb AF) 1 appl topical DAILY simvastatin 40 mg PO DAILY Tobacco use date assessed: 05/22/25 Dental Screening Dental Screen Date: 05/22/25 Did you have a dental visit in the last 12 months?: Yes Did you have a dental problem in the last 6 months where you did not have access to dental care?: No Was dental information given to patient?: Patient has dentist HPI (L) leg above knee pain HPI Details 60 year old female coming to the office for an acute problem. Presenting with left leg pain. She reports the onset of a sharp, stabbing pain in her left groin area and left thigh, which she first noticed on Thursday. The pain radiates to her knee and is exacerbated by activities such as walking, moving in bed, lifting her leg, and initially standing up. Symptoms are inconsistent. This is a new symptom for the patient, and she denies any recent falls, new exercises, or changes in activity levels. She has a history of arthritis in her other knee, for which she previously did exercises but has since stopped. [facility] Medical History Impacted cerumen of both ears Annual physical exam Encounter for annual routine gynecological examination Colon cancer screening Avulsion fracture of metatarsal bone of left foot with routine healing Injury of right great toe Cerebral palsy Hypercholesterolemia Rosacea Hypertension Vitamin D deficiency Peripheral vascular disease Type 2 diabetes mellitus with hyperglycemia Surgical History History of brain shunt Family History Father Medical history unknown Mother Brain cancer Diabetes Hypertension Paternal Uncle Cancer Social History Housing: House Alcohol intake: never Patient Tobacco Use Status: Never used Tobacco Tobacco use type: Cigarette e-Cigarette/Vaping Use: Never Used Second Hand Smoke Exposure: No service: No Current occupational status: disabled Cognitive needs: No Hearing needs: No Vision needs: No Questionnaire PHQ-9 Over the last 2 weeks, how often have you been bothered by any of the following problems? 1. Little interest or pleasure in doing things: not at all 2. Feeling down, depressed, or hopeless: not at all 3. Trouble falling or staying asleep, or sleeping too much: not at all 4. Feeling tired or having little energy: not at all 5. Poor appetite or overeating: not at all 6. Feeling bad about yourself - or that you are a failure or have let yourself or your family down: not at all 7. Trouble concentrating on things, such as reading the newspaper or watching television: not at all 8. Moving or speaking so slowly that other people could have noticed. Or the opposite - being so fidgety or restless that you have been moving around a lot more than usual: not at all 9. Thoughts that you would be better off or of hurting yourself in some way: not at all Total score: 0 Source: Developed by Drs. Jori Elias, Junai Noriega, Jagdish Cardenas and colleagues, with an educational rand from [employer]. Thrive Questionnaire Date Thrive assessed: 02/14/25 I am a: Patient What is your living situation today?: I have a steady place to live Within the past 12 months, did the food you bought not last and you didn't have the money to get more?: Never true Within the past 12 months, did you worry whether your food would run out before you got money to buy more?: Never true Do you have trouble paying for medicines?: No Do you have trouble getting transportation to medical appointments?: No Do you have trouble paying your heating and electricity bill?: No Do you have trouble taking care of your child, family member or friend?: I choose not to answer this question Do you have trouble with day-to-day activities such as bathing, preparing meals, shopping, managing finances, etc.?: I choose not to answer this question Are you currently unemployed and looking for a job?: I choose not to answer this question Are you interested in more education?: I choose not to answer this question Please select the resources that you would like help with: None Currently or been in a relationship where the following occur: No concerns reported THRIVE Score: 0 AUDIT C Alcohol Use Questionnaire (AUDIT-C) 1. How often do you have a drink containing alcohol?: Never 3. How often do you have six or more drinks on one occasion?: Never Total Score: 0 MATEO-7 AMB Questionnaire MATEO-7 Date MATEO - 7 assessed: 10/28/24 Feeling nervous, anxious, or on edge: 1 = Several days Not being able to stop or control worryin = Not at all Worrying too much about different things: 0 = Not at all Trouble relaxin = Not at all Being so restless that it is hard to sit still: 0 = Not at all Becoming easily annoyed or irritable: 0 = Not at all Feeling afraid as if something awful might happen: 0 = Not at all Total MATEO-7 score (0-4 normal; 5-9 mild; 10-14 moderate; 15-21 severe): 1 Source: Developed by Drs. Jori Elias, Juani Noriega, Jagdish Cardenas and colleagues, with an educational rand from [employer]. Review of Systems Const Denies body aches, Denies chills and Denies fever(s) Card Reports no additional complaints Resp Reports no additional complaints Reports no additional complaints Musc Reports as per HPI Physical exam (Primary Care) Vital Signs: Last Vital Signs Temp 98.3 F 06/20/25 15:00 Pulse 67 06/20/25 15:00 BP 130/72 06/20/25 15:00 Pulse Ox 99 06/20/25 15:00 Oxygen Delivery Method Room Air 06/20/25 15:00 Tobacco/Smoking Status: Tobacco use Status Tobacco use date assessed 05/22/25 06/20/25 15:04 Patient Tobacco Use Status Never used Tobacco 06/20/25 15:04 Tobacco use type Cigarette 06/20/25 15:04 e-Cigarette/Vaping Use Never Used 06/20/25 15:04 PHQ-9: PHQ-9 Score PHQ-9: Total score 0 06/20/25 15:04 Thrive Assessment: Date of Thrive Assessment Date Thrive assessed 02/14/25 06/20/25 15:04 Currently or been in a relationship where the following occur: No concerns reported Const General: cooperative, healthy appearing, comfortable and no acute distress Orientation/consciousness: patient oriented x3 HENMT Head: Yes normocephalic Ears: hearing grossly normal bilaterally General nose exam: Normal external nose present Eyes General: appearance normal, both eyes and all related structures Conjunctivae: conjunctivae normal Neck Neck: Yes full ROM and Yes no lymphadenopathy Resp Effort & Inspection: normal respiratory effort Auscultation: clear to auscultation bilaterally, no crackles, no rales, no rhonchi and no wheezes Cardio Rate: regular rate Rhythm: regular rhythm Back/Spine/Pelvis Other: No pain to palpation over bilateral hips or pelvis Skin General skin exam: no rashes or lesions noted Neuro General: patient oriented x3 Gait exam (Neuro): Normal gait present Extrem Other: No pain to palpation over left knee or thigh. No swelling or ecchymosis of bilateral lower extremities. Intact strength and sensation bilateral lower extremities. Pain elicited in left thigh with extension of left knee General: Yes normal to inspection, Yes full ROM and No edema Psych Affect: normal affect Attitude: cooperative Insight: Good insight present (Psych) Judgement: Good judgement present (Psych) Coding Level of Care Code Est Pt Level 3 (77518) Diagnoses Left hip pain M25.552 Assessment & Plan Assessment & Plan (1) Left hip pain: Code(s): M25.552 - Pain in left hip Category: Medical Plan: The patient's pain in the left groin radiating to the knee is most likely muscular in origin, possibly due to prolonged sitting or deconditioning. While a hip pathology is considered in the differential due to the groin pain, the clinical presentation is more suggestive of muscle soreness. An X-ray of the hip and pelvis will be ordered to rule this out. The plan includes management with heat application, specifically recommending wet heat. Gentle stretching and resuming previous exercises for arthritis are advised, with breaks for pain. [id number] analgesics such as Tylenol or ibuprofen are recommended for pain and inflammation, as her kidney function is normal. The patient is instructed to follow up if her symptoms do not improve. Plan This note was constructed using voice recognition software. While every effort has been made to ensure accuracy and asset protection officer, still areas may have been included sometimes these areas may affect the content or meeting of the given symptoms. Total time spent caring for the patient today was 20 minutes. This includes time spent before the visit reviewing the chart, time spent during the visit, and time spent after the visit and documentation. Patient was informed and verbally consented to the use of an ambient scribe for clinic note documentation during this visit. Orders: Orders XR hip LT w [id number] Today M25.552 - Pain in left hip
--- OUTSIDE RECORDS SUMMARY | 2025-06-21 12:35 | XMS_ITS | Data Portability ---
Author Organization [employer] [facility], [facility] [employer] [facility] Address [address] [place] [address] Care Team Providers Care Ivory Carver Name Role Phone HIM CCA OTHER ANALIA GARCIA Primary Care Provider [phone] Assessment Encounter Date Assessment Date Assessment LastModified by Organization Details LastModified Time 12/23/2023 12/23/2023 I provided real -time medical direction via phone for this encounter, and was available for additional phone based assistance as needed. I have reviewed and agree with the Assessment and Plan as documented by the Psych Arnp. We discussed the diagnostic uncertainty of home [...] to call 911- verbalized understanding of instruction [email or web address] Not available 12/23/2023 11:33:30 04/28/2025 04/28/2025 Evaluation in the field was performed by my police dispatcher colleague, as noted above, I provided real-time direction and supervision for this visit. This is a 59yo F requesting evaluation for a cough and congestion that started one day ago. No fever, SOB, NVD, sore throat. Taking otc cough med. PE: General: Awake & alert, NAD Respiratory: Chest rise equal bilat, no increased wob CV: Regular rate, normal peripheral perfusion Impression: Upper respiratory infection Plan: -VSS, appears well, no fever, no distress. -24hrs sx, no indication for antibiotic or anything other than continued symptomatic tx at this time. Disposition: Remain at home We discussed the diagnostic uncertainty of home visits and the risk associated with this. In this case, the patient and I felt this to be an acceptable and reasonable amount of risk given the benefit of avoiding an ED visit. We discussed the need to seek care urgently/emergen tly in the setting of any new or worsening serious symptoms. [email or web address] Not available 04/28/2025 20:40:59 05/14/2025 05/14/2025 59 yo F with 2 days of new painful, blistering rash to R flank area. No hx shingles. VS wnl. Pictures and hx appear c/w herpes zoster. Will give valacyclovir 1g now in the home rx sent for valacyclovir 1g TID x 7 days to pharmacy rx tylenol for pain sent to pharmacy discussed course of illness precautions reviewed [email or web address] Not available 05/19/2025 21:06:14 Plan of Treatment Reminders Order Date Submit Date Provider Last Modified By Organization Details Last Modified Time Details Appointments None recorded. Lab rapid SARS CoV 2 Ag, QL IA, respiratory specimen 2024 025 [facility], [address] [place] [address], [id number] 5 21:54:19 rapid flu (A+B) 2024 025 [facility], [address] [place] [address], [id number] 21:54:20 rapid SARS CoV 2 Ag, QL IA, respiratory specimen 2023 024 [email or web address] 0 [facility], [address] [place] [address], [id number] 4 11:35:44 rapid strep group A, throat 2023 024 [email or web address] 0 [facility], [address] [place] [address], [id number] 4 11:35:45 rapid flu (A+B) 2023 024 [email or web address] 0 [facility], [address] [place] [address], [id number] 11:35:42 Referral None recorded. Procedures None recorded. Surgeries None recorded. Imaging None recorded. Medication Orders valacyclovi r 1 gram tablet 2024 025 [facility] #[id number], [address] [place], [place], [id number], 5 05:01:02 valacyclovi r 1 gram tablet 2024 025 [facility] #[id number], [address] [place], [place], [id number], 5 05:01:02 Tylenol Extra Strength 500 mg tablet 2024 025 [facility] #[id number], [address], [place], [id number], 5 13:15:34 acetaminoph en 500 mg tablet 2024 025 [email or web address] 7 [facility] #[id number], [address] [place], [place], [id number], 5 13:15:27 benzonatate 100 mg capsule 2023 024 [facility] #[id number], [address], [place], [id number], 4 11:35:55 Patient TargetsNo targets recorded. Patient InstructionsNo instructions recorded. Reason for Referral None Reported. Results Created Date Observation Date Name Description Value Unit Range Abnormal Flag Note LastModifiedBy Organization Detail LastModifiedTime 12/23/19 24 12/23/2023 rapid flu (A+B) Flu negati ve Not Available Main - [facility] ed [address] [place] [address], [phone] 12/23/2023 11:33:56 12/23/19 24 12/23/2023 rapid strep group A, throa t Strep negati ve Not Available Main - Inst ed [address] [place] [address], [id number] 12/23/2023 11:33:51 12/23/19 24 12/23/2023 rapid SARS CoV 2 Ag, QL IA, respi rator y speci men rapid SARS CoV 2 Ag, QL IA, respiratory specimen negati ve Not Available Main - [facility] ed [address] [place], [phone] 12/23/2023 11:33:38 Result Notes None recorded. Medical Equipment None Reported. Allergies No known drug allergies Medications Name Sig Start Date Stop Date Status Note LastModified by Organization Details LastModified Time amoxicillin 500 mg capsule TAKE 4 CAPSULES BY MOUTH 1 HOUR BEFORE PROCEDURE active Not Available Not Available No t Available metformin 500 mg tablet TAKE 1 TABLET BY MOUTH TWICE DAILY WITH MEALS active Not Available Not Available No t Available valacyclovi r 1 gram tablet Take 1 tablet 3 times a day by oral route for 7 days. 05/28 completed Not Available Not Available Not Available FreeStyle Lancets 28 gauge USE THREE TIMES DAILY active Not Available Not Available No t Available Zeasorb AF 2 % topical powder APPLY TOPICALLY DAILY active Not Available Not Available No t Available acetaminoph en 500 mg tablet TAKE 2 TABLETS BY MOUTH EVERY 6 HOURS NEEDED FOR PAIN active Not Available Not Available No t Available simvastatin 40 mg tablet TAKE 1 TABLET BY MOUTH DAILY active Not Available Not Available No t Available amoxicillin 875 mg tablet TAKE 1 TABLET BY MOUTH TWICE DAILY UNTIL ALL TAKEN DIRECTED active Not Available Not Available No t [...] Not Available Not Available No t Available ketoconazol e 2 % topical cream APPLY TOPICALLY TO THE AFFECTED AREA TWICE DAILY active Not Available Not Available No t Available clotrimazol e 1 % topical cream APPLY TOPICALLY TO THE AFFECTED AREA TWICE DAILY FOR 4 WEEKS active Not Available Not Available No t Available chlorhexidi ne gluconate 0.12 % mouthwash RINSE WITH 15 MLS TWICE DAILY THEN EXPECTORA TE START MORNING AFTER SURGERY active Not Available Not Available No t Available FreeStyle Lite Strips TEST BLOOD GLUCOSE THREE TIMES DAILY active Not Available Not Available No t Available Jardiance 10 mg tablet TAKE 1 TABLET BY [...] cm 97 % 97 % 86 /min 06597.8 56 g 16 /min 132/74 mm[Hg] Not Available [employer] 4 11:15:44 Date Recorded Body weight Heart rate Body temperature Respiratory rate Oxygen saturation Oxygen saturation in Arterial blood by Pulse oximetry Body height Systolic And Diastolic Provider Name and Address Organization Details Last Updated DateTime 5 80642.2 g 93 /min 98.8 [degF] 18 /min 97 % 97 % 134.62 cm 110/68 mm[Hg] Not Available [employer] 5 20:13:15 Date Recorded Body height Body weight Body temperature Respiratory rate Oxygen saturation Oxygen saturation in Arterial blood by Pulse oximetry Heart rate Systolic And Diastolic Provider Name and Address Organization Details Last Updated DateTime 5 134.62 cm 50286.2 g 99 [degF] 18 /min 97 % 97 % 88 /min 130/90 mm[Hg] Not Available [employer] 5 13:10:58 Social History None recorded. Functional Status None recorded. Mental Status None recorded. Family History Nothing Reported. Medical History No medical history recorded. Gynecological HistoryNo gynecological history recorded. Obstetrics History GPAL:G 0 P 0 0 0 0 Past Encounters Encounter ID Performer Location Encounter Start Date Encounter Closed Date Diagnosis/Indication Diagnosis SNOMED-CT Code Diagnosis ICD10 Code Diagnosis IMO Codes Diagnosis Note [id number] Margot Crystal MD Main - [address] [address] 12/23/2023 11:15:42 12/23/2023 18:10:33 Viral upper respiratory tract infection 336721294 J06.9 Advised to stay hydrated, continue OTC cough med. May gargle with warm salt water. She requested something slightly stronger for cough. Is aware benzonatat e is not covered [id number] Shanika Blackmon MD Main-[facility] [address] [address] 04/28/2025 20:13:08 04/28/2025 22:05:31 Viral upper respiratory tract infection 480895853 J06.9 [id number] CAITLYN LAU MD [facility] ED Medical [address] [address] 05/14/2025 13:10:50 05/20/2025 18:56:23 Herpes zoster [id number] B02.9 [id number] Health Concerns Section Related Observation LastModified by Organization Detai ls LastModified Time None Recorded Concern Status LastModified by Organization Details LastModified Time None Recorded Advance Directives Directive None Recorded Payers Insurance Date Sequence Insurance Name Policy Number Policy López Covered Member ID López Member ID Guarantor Name 05/20/2025 1 [facility] - DOS ON OR AFTER 2022 - DUAL ELIGIBLE - [facility] OPTIONS AND ONE CARE (MEDICARE REPLACEMENT/ADV ANTAGE - HMO) Shari Delgadillo [id number] Shari Delgadillo Notes Date Note Type Note Provider Name and Address Organization Details Recorded Time 12/23/2023 text/html ROS as noted in the HPI CRC Nurse Triage Notes (Waldemar Gonzales): Chief Complaints: Shortness of Breath/Dyspnea Allergies: Unknown Comments: Radio Television Announcer verified the member's name//address and phone number. [...] itchiness to her right ear no discharge Psych Arnp POC Test Results from Frank Gray - [facility] Rapid COVID antigen (1) [12:24] COVID: - Rapid influenza antigen (1) [12:24] Flu: - Rapid strep test (1) [12:24] Strep: - ..................... ..................... ..................... ..................... ..................... ..................... ............... Psych Arnp Note From Frank Gray: [facility] visit for female patient with cough. Pt presents at home on couch in company of brother/HCP and WEB CONTENT EXECUTIVE. Pt reports 3 days of cough with some chest congestion. Cough largely dry and unproductive. Pt also reporting some throat pain with cough and itchiness in right ear. No fevers reported. Denies CP/SOB. Pt well appearing. V/S taken and WNL. Pt afebrile. Pt swabbed for flu covid and strep, all negative. Lung sounds clear bilaterally. Abdomen soft and non tender. [place] [facility] [place] Crystal who prescribed benzonatate for cough. Reviewed red flags for ED. Pt education provided. ..................... ..................... ..................... ..................... ..................... ..................... ............... Disposition: Fulfilled Margot Crystal MD [address] [facility],[address], [place], [phone], [employer] 12/23/2023 12:26:16 04/28/2025 text/html ROS as noted in the HPI CRC Nurse Triage Notes (Esperanza Bhandari): Reason For Request: cold like symptoms Patient Reports: Cough Denies: Increased work of breathing/labored with or without fever Unable to speak in full sentences without distress Discoloration of skin -cyanosis Needs to sleep sitting up, can t catch breath Shortness of breath in setting of confusion Cough, fever greater than 2 days Lower extremity swelling History of asthma, increased use of inhaler COPD COVID Exposure Sputum increase Shortness of breath with exertion Pain with inspiration Chief Complaints: Common Cold PMH: Other PMH Reviewed at 04/28/2025:39 Allergies Reviewed at 04/28/2025:39 Comments: Other PMH: cerebral palsy 59 y.o female complains of Common Cold Brother reporting symptoms: Reporting dry persistent cough - no phlegm since last night Reports nasal congestion and sneezing Reports temperature as 99.8F Denies chills/body aches, nausea/vomiting, SOB, chest pain No PMH of COPD/Asthma or kidney issues Not on anticoagulation No known COVID exposure I provided information on the mobile health provider response time and advised the patient and/or caregiver to monitor reported signs and symptoms. I discussed the warning signs of when to seek emergency care. Psych Arnp Organization Information for [employer] Legal Name: [email or web address] Address: [address] [place] [address], Test Architect: Alfred Mueller MD CLIA No.: [id number] Psych Arnp POC Test Results from [facility] Rapid COVID antigen (19:59:25) COVID: - Attachments uploaded as part of this test result can be found under Documents section. Rapid influenza antigen (19:59:25) Flu: - ..................... ..................... ..................... ..................... ..................... ..................... ............... Psych Arnp Note From Linda Joannaamy: [facility] responds to the listed address for a 59 yof w/ a c/c of cold symptoms. Upon arrival on scene, pt is found seated on the sofa in the living room of the apartment where she lives alone. She is wearing a mask, but is well-appearing w/ no ashen or meneses color noted, no stridor or sonorous respirations present, no facial droop and no one-sided weakness are observed, and she is not bleeding anywhere. Pt has cerebral palsy and holds her UEs at her baseline, mildly contracted to her body and she is unable to sit up straight or straighten her legs fully. She makes eye contact and greets [facility]. Her brother is on scene as well. He lives downstairs and stays w/ the pt once pt's WEB CONTENT EXECUTIVE leaves for the day. He tells [facility] the pt developed a dry, hacking cough last night. He admits he is very protective and nervous w/ her comorbidities and knows when she says she isn't feeling well that she is actually sick. Pt says she has had a lot of sinus congestion w/ watery drainage and a dry cough. She denies fevers/chills, n/v/d, urinary symptoms, earl, or abd pain. She is able to eat and drink ok and is staying well hydrated. She says she did go play Bingo today, but has no known sick contacts recently. Brother tells and shows [facility] he has been giving the pt OTC diabetic tussin for cough suppression and it seems to be working. She normally takes Tylenol when she is in pain or has fevers. [facility] discusses treatment plan w/ pt and her brother to include continued supportive care based on her current condition and pending the results of the COVID/flu test and any further recommendations from the [facility]. Both are amendable to the plan. [facility] swabs pt for COVID/flu and vital signs are obtained. Pt is normotensive and afebrile. Physical exam is not concerning and lung sounds are clear. COVID/flu are negative. [facility] contacts [facility] and discusses the above. [facility] agrees w/ continued supportive care w/ a recommendation for re-evaluation if she does not feel better in a few days and to seek emergency care if she gets severe cp, sob, uncontrolled n/v/d, or high fevers or seizures/ams. Pt and brother give their verbal understanding. [facility] is clear. Report completed by SHAGGY [email or web address]. [facility] [place] Orders: rapid SARS CoV 2 Ag, QL IA, respiratory specimen: Performed rapid flu (A+B): Performed ..................... ..................... ..................... ..................... ..................... ..................... ............... [facility] Consulted: Shanika Blackmon ..................... ..................... ..................... ..................... ..................... ..................... ............... Disposition: Fulfilled Shanika Blackmon MD [address] [place] [address],[address], [place], [phone] [employer] 04/28/2025 21:48:22 05/14/2025 text/html CRC Nurse Triage Notes (Esperanza Bhandari): Reason For Request: Patient has a Red rash developing , random parts of body, -Dental procedure done wed, -and has pres meds. Denies: Rhodes Flash, circumferential rhodes Rhodes reported with black tissue to the area Open skin area after a fall with uncontrolled bleeding Abscess/infection with streaking noted, presence of fever or without Chief Complaints: Rash PMH: Diabetes Mellitus Type 2, Hypertension, Hyperlipidemia PMH Reviewed at 05/14/2025:59 Allergies Reviewed at 05/14/2025:59 Comments: 59 y.o female complains of Rash Brother reporting symptoms. Dental procedure Thursday. Noticed rash [...] wheezing. Reviewed RED flags, brother in agreement. I provided information on the mobile health provider response time and advised the patient and/or caregiver to monitor reported signs and symptoms. I discussed the warning signs of when to seek emergency care. ..................... ..................... ..................... ..................... ..................... ..................... ............... Psych Arnp Note From Jb Mckeon: [facility] responds to the listed address for a 59 yof w/ c/c of rash. Upon arrival on scene, pt is found seated on the sofa in her home awaiting [facility] arrival. She smiles and laughs on [facility] entry. NAD is present, no stridor or sonorous respirations, facial droop, one-sided weakness, or major bleeding are observed. Pt has cerebral palsy and arm, hand, and leg contractures are at pt's baseline and she is able to move them normally. Pt's brother tells [facility] her WEB CONTENT EXECUTIVE noticed a rash on pt's stomach, lower back, and under the R gluteal fold while she was bathing the pt today. Pt had a recent dental procedure and was placed on amoxicillin and a chlorhexidine swish and spit mouth rinse post procedure. ABX have been held today until [facility] evaluation could be completed. Pt tells INRaj she felt weird in the places where the rash is today, but is unable to visualize the spots on her own and didn't know a rash was there. She is able to ambulate, w/ assistance from her brother, at her baseline, to the bathroom for [facility] to observe the rash. She is then able to ambulate back to the sofa and sit as she was. She denies any fevers/chills, painful itching sensation, or tingling in the area today. [facility] informs pt to wash her hands well after showing [facility] the rash and brother to wear a mask and wash his hands as well. Both are compliant. Ddx: Shingles, abx reaction, dermatitis [facility] visually observes the affected area and obtains photos for [facility] inspection. [facility] notes blotchy rash spots w/ clear fluid-filled vesicles on pt's R lumbar and R flank region. Nothing is noted below the gluteal muscle on the posterior R thigh and no other areas of said rash are observed. [facility] obtains vital signs and pt is normotensive, not hypoxic, and has a slight bump in temp at 99.0. Physical exam is limited to the rash and lack of other physical complaints from the pt today. [facility] contacts [facility] and discusses the above. [facility] agrees w/ shingles observation and prescribes valacyclovir PO BID for pt and Tylenol for pain and fever and calls in 7-day course to pt's pharmacy. After confirming pt has NKDA, [facility] administers 1G valacyclovir x 1 tablet and 500mg x2 tablets Tylenol PO for pt and she takes all meds in the presence of [facility]. [facility] informs pt to keep the rash clean w/ warm soapy water and allow it to dry. Application of dry bandaging can be applied if pt desires. Pt is also informed the vesicles will break open and scab over and to not touch or scratch the area. If she does, she is instructed to wash her hands w/ soap and water thoroughly. Pt and brother are informed of the warning signs of when to seek emergency care and they both thank [facility] for coming. [facility] is clear. Report completed by SHAGGY Mckeon [id number]. [facility] Medication Orders: valacyclovir 1 gram tablet: Administered acetaminophen 500 mg tablet: Administered ..................... ..................... ..................... ..................... ..................... ..................... ............... [facility] Consulted: Caitlyn Lau ..................... ..................... ..................... ..................... ..................... ..................... ............... Disposition: Fulfilled CAITLYN LAU MD [address] [place] [address],[address], [place], [address], [employer] 05/19/2025 21:06:20 OBGyn Episode No OBEpisode recorded.
--- OUTSIDE RECORDS SUMMARY | 2025-06-21 12:35 | XMS_ITS | Encounter Summary ---
Author Organization [facility] Address [address] [place] [address] Encounters * CPT with Medical [facility] at [place] on 2025-04-29 { reasonForRequest : cold like [...] and stays w/ the pt once pt's ION IMPLANT MACHINE OPERATOR leaves for the day. He tells [facility] [...] hydrated. She says she did go play [employer] today, but has noknown sick contacts recently. Brother tells and shows [facility] he has been giving the pt OTC diabetic tussin for cough suppression and it seems to be working. She normally takes Tylenol when she is in pain or has fevers. [facility] discusses treatment plan w/ pt and her brother to include continued supportive care based on her current condition and pending the results of the COVID/flu test and any further recommendations from the [facility]. Both are amendable to the plan. [facility] swabs pt for COVID/flu and vital signs are obtained. Pt is normotensive and afebrile. Physical exam is not concerning and lung sounds are clear. COVID/flu are negative. [facility] contacts [facility] and discusses the above. [facility] agrees w/ continued supportive care w/ a recommendation for re-evaluation if shedoes not feel better in a few days and to seek emergency care if she gets severe cp, sob, uncontroll ed n/v/d, or high fevers or seizures/ams. Pt and brother give their verbal understanding. [facility] is clear. Report completed by SHAGGY Mckeon [id number]. IV_(FLUIDS_AND/OR_MEDICATION), MEDICATION_IM, POC_BLOODWORK Written by [facility] on 2025-04-29
--- OUTSIDE RECORDS SUMMARY | 2025-06-21 12:35 | XMS_ITS | Continuity of Care Document ---
Author Name [facility], Medical Address [address] [place] [id number] Organization Unknown Address [address] [place] [address] Medications No known medications Problems No known problems
--- OUTSIDE RECORDS SUMMARY | 2025-06-21 12:35 | XMS_ITS | Continuity of Care Document ---
Author Name [facility], Medical Address [address] [place] [id number] Organization Unknown Address [address] [place] [id number] Medications No known medications Problems No known problems
--- OUTSIDE RECORDS SUMMARY | 2025-06-21 12:36 | XMS_ITS | Patient Health Record ---
Author Organization [facility] Address [address] [place] [address] Care Team Providers Care Senior Reliability Engineer Name Role Phone Uri Salazar Primary Care Provider Bayron Caruso Unavailable [phone] Allergies No Known Allergies Results Component Value [...] Problem Acquired hammer toe of right foot (9501063807781 105) Other hammer toe(s) (acquired), right foot (M20.41) Active confirmed Problem Acquired hammer toe of left foot (8009035706656 103) Other hammer toe(s) (acquired), left foot (M20.42) Active confirmed Problem Type 2 diabetes mellitus with peripheral angiopathy (102001945) Type 2 diabetes mellitus with diabetic peripheral angiopathy without gangrene (E11.51) Active confirmed Q7(A), Q8(2B), Q9(1B,2C) Vital Signs Blood pressure diastolic 70 mm Hg 11/03/2024 Height 4ft 5 in in 04/27/2025 Blood pressure systolic 120 mm Hg 11/03/2024 Weight 92 lbs 04/27/2025 BMI 23.02 kg/m2 04/27/2025 Procedures Procedure Date Ordered Date Performed Result Body Sit e 91084-KSXBUUK NAIL, 1-5 08/01/2024 N/A 76175-GLIH SKIN LESIONS, OVER 4 08/01/2024 N/A F3390-JXSKTXBY DYSTROPHIC NAILS ANY # 08/01/2024 N/A 13725-MPOTSTK NAIL, 1-5 11/03/2024 N/A 63284-WFXF SKIN LESIONS, OVER 4 11/03/2024 N/A P5092-KWTSGCXY DYSTROPHIC NAILS ANY # 11/03/2024 N/A 49848-QZKWDXY NAIL, 1-5 02/01/2025 N/A 73510-MZQB SKIN LESIONS, OVER 4 02/01/2025 N/A E4822-FRETTZRW DYSTROPHIC NAILS ANY # 02/01/2025 N/A 06464-XJGGJDL NAIL, 1-5 04/27/2025 N/A 25756-EWXF SKIN LESIONS, OVER 4 04/27/2025 N/A F0844-YRQYDQGL DYSTROPHIC NAILS ANY # 04/27/2025 N/A Encounters Encounter Location Date Provider Diagnosis [address] [address] 08/01/2024 Bayron Jim Type 2 diabetes mellitus with diabetic peripheral angiopathy without gangrene E11.51 ; Tinea unguium B35.1 ; Pain in right toe(s) M79.674 ; Pain in left toe(s) M79.675 ; Other hammer toe(s) (acquired), right foot M20.41 and Other hammer toe(s) (acquired), left foot M20.[address] [address] 11/03/2024 Bayron Jim Type 2 diabetes mellitus with diabetic peripheral angiopathy without gangrene E11.51 ; Tinea unguium B35.1 ; Pain in right toe(s) M79.674 ; Pain in left toe(s) M79.675 ; Other hammer toe(s) (acquired), right foot M20.41 and Other hammer toe(s) (acquired), left foot M20.[address] [address] 02/01/2025 Bayron Jim Tinea unguium B35.1 ; Type 2 diabetes mellitus with diabetic peripheral angiopathy without gangrene E11.51 ; Pain in right toe(s) M79.674 and Pain in left toe(s) M79.[address] [address] 04/27/2025 Bayron Jim Tinea unguium B35.1 ; [...] Treatment Pending Test Test Name Order Date 23966-ETJCLMD NAIL, 1-5 08/01/2024 48982-CILDYMF NAIL, 1-5 11/03/2024 64889-LONHZGH NAIL, 1-5 02/01/2025 88072-GIHNFRN NAIL, 1-5 04/27/2025 09282-ZRGG SKIN LESIONS, OVER 4 04/27/20 25 37935-UAGA SKIN LESIONS, OVER 4 02/02/20 25 62883-XFUU SKIN LESIONS, OVER 4 11/04/19 25 55533-WYFE SKIN LESIONS, OVER 4 08/01/20 24 Q8887-SWLFCYZK DYSTROPHIC NAILS ANY # F8600-CZIKBEFD DYSTROPHIC NAILS ANY # T4224-QNCTNTLK DYSTROPHIC NAILS ANY # C9863-GFFXOFJN DYSTROPHIC NAILS ANY # Next Appt Details Provider Name:Bayron Calderon Hernán , 08/14/2025 02:15:00 PM, [address], [address], [place], [address], Insurance Providers Payer Name Payer Address Payer Phone Subscriber Number Group Number Insured Name Patient Relationship to Insured Coverage Start Date Coverage End Date [facility] [employer] Claims [address] [place] [id number] Shari Delgadillo Self - patient is the insured Medical (General) History Medical History History ICD Code covid-19 Diabetic High Blood Pressure Cerebral palsy Hypercholesterolemia
--- OUTSIDE RECORDS SUMMARY | 2025-06-21 12:36 | XMS_ITS | Encounter Summary ---
Author Organization [facility] Address [address] [place] [address] Encounters * CPT with [facility] at [employer] on 2025-05-14 { reasonForRequest : Patient has [...] on the sofa in her home awaiting [facility] arrival. She smiles and laughs on [facility] entry. NAD is present, no stridor or sonorous respirations, facial droop, one-sided weakness, or major bleeding are observed. Pt has cerebral palsy and arm, hand, and leg contractures are at pt's baseline and she is able to move them normally. Pt's brother tells VERONICA her ELECTRONIC FIELD SERVICE ENGINEER noticeda rash on pt's stomach, lower back, and under the R gluteal fold while she was bathing the pt today. Pt had a recent dental procedure and was placed on amoxicillin and a chlorhexidine swish and spit mouth rinse post procedure. ABX have been held today until [facility] evaluation could be completed. Pt tells MIRaj she felt weird in the places where the rash is today, but is unable to visualize t he spots on her own and didn't know a rash was there. She is able to ambulate, w/ assistance from her brother, at her baseline, to the bathroom for [facility] to observe the rash. She is then able to ambulate back to the sofa and sit as she was. She denies any fevers/chills, painful itching sensation, or tingling in the area today. [facility] informs pt to wash her hands well after showing MIH the rash and brother to wear a mask and wash his hands as well. Both are compliant. Ddx: Shingles, abx reaction, dermatitis [facility] visually observes the affected area and obtains photos for [facility] inspection. [facility] notes blotchy rash spots w/ clear fluid-filled vesicles on pt's R lumbar and R flank region. Nothing is noted below the gluteal muscle on the posterior R thigh and no other areas of said rash are observed. [facility] obtains vital signs and pt is normotensive, not hypoxic, and has a slight bump in temp at 99.0. Physical exam is limited to the rash and lack of other physical complaints from the pt today. [facility] contacts [facility] and discusses the above. [facility] agrees w/ shingles observation and prescribes valacyclovirPO BID for pt and Tylenol for pain and fever and calls in 7-day course to pt's pharmacy. After confirming pt has NKDA, [facility] administers 1G valacyclovir x 1 tablet and 500mg x2 tablets Tylenol PO for pt and she takes all meds in the presence of [facility]. [facility] informs pt to keep the rash clean [...] seek emergency care and they both thank [facility] for coming. [facility] is clear. Report completed by SHAGGY Mckeon [id number]. PO_MEDICATION Written by [facility] on 2025-05-14
== END 2025-06-20 15:59 | disposition home or self-care (01) ==
LOC: HO.HMCH 14:44
PROVIDERS: PCP Internal Medicine
DX: M25.552 Pain in left hip (principal)

== ENCOUNTER → 2025-06-20 14:43 | Outpatient (BNVA) | payer OTHER, SELFPAY | PROVIDERS: PCP Internal Medicine | DX: M25.552 Pain in left hip (principal) | CPT/HCPCS: 99212 ==

== ENCOUNTER 2025-07-08 07:29 | Outpatient (REF) | payer OTHER, SELFPAY ==
--- OUTSIDE RECORDS SUMMARY | 2025-07-08 07:32 | XMS_ITS | Continuity of Care Document ---
Author Organization [facility] [employer] [facility] Address [address] [place] [address] Care Team Providers Care Costume Shop Manager Name Role Phone HIM CCA OTHER POANALIA Primary Care Provider Assessment Encounter Date Assessment Date Assessment LastModified by Organization Details LastModified Time 04/28/2025 04/28/2025 Evaluation in the field was performed by my remote pilot operator colleague, as noted above, I provided real-time [...] We discussed the need to seek care urgently/emerg ently in the setting of any new or worsening serious symptoms. [email or web address] Not available 04/28/2025 20:40:59 Plan of Treatment Reminders Order Date Submit Date Provider Last Modified By Organization Details Last Modified Time Details Appointments None recorded. Lab rapid SARS CoV 2 Ag, QL IA, respiratory specimen 2024 025 [facility], [address] [place] [address], [id number] 21:54:19 rapid flu (A+B) 2024 025 [facility], [address] [place] [address], [id number] 5 21:54:20 Referral None recorded. Procedures None recorded. Surgeries None recorded. Imaging None recorded. Medication Orders None recorded. Patient TargetsNo targets recorded. Patient InstructionsNo instructions recorded. Reason for Referral None Reported. Results Created Date Observation Date Name Description Value Unit Range Abnormal Flag Note LastModifiedBy Organization Detail LastModifiedTime Result Notes None recorded. 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 Functional Status None recorded. Mental Status None recorded. Family History Nothing Reported. Medical History No medical history recorded. Gynecological HistoryNo gynecological history recorded. Obstetrics History GPAL:G 0 P 0 0 0 0 Past Encounters Encounter ID Performer Location Encounter Start Date Encounter Closed Date Diagnosis/Indication Diagnosis SNOMED-CT Code Diagnosis ICD10 Code Diagnosis IMO Codes Diagnosis Note [id number] Shanika Blackmon MD [facility] [address] 04/28/2025 20:13:08 04/28/2025 22:05:31 Viral upper respiratory tract infection 934821099 J06.9 1699167 Health Concerns Section Related Observation LastModified by Organization Detai ls LastModified Time None Recorded Concern Status LastModified by Organization Details LastModified Time None Recorded Payers Encounter Date Sequence Insurance Name Policy Number Policy López Covered Member ID López Member ID Guarantor Name 04/28/2025 1 [facility] - DOS ON OR AFTER 2022 - DUAL ELIGIBLE - DETENTION OPTIONS AND ONE CARE (MEDICARE REPLACEMENT/ADV ANTAGE - HMO) Shari Delgadillo [id number] Shari Delgadillo Notes Date Note Type Note Provider Name and Address Organization Details Recorded Time 04/28/2025 text/html ROS as noted in the [...] signs of when to seek emergency care. Incident Coordinator Organization Information for [facility] Business Legal Name: [email or web address] Address: [address] [place] [address], Nailing Machine Operator Automatic: Alfred Mueller MD CLIA No.: [id number] Incident Coordinator POC Test Results from [facility] Rapid COVID antigen (19:59:25) COVID: - Attachments uploaded as part of this test result can be found under Documents section. Rapid influenza antigen (19:59:25) Flu: - ..................... ..................... ..................... ..................... ..................... ..................... ............... Incident Coordinator Note From [facility]: SC6 responds to the listed address for [...] fully. She makes eye contact and greets [facility]. Her brother is on scene as well. He lives downstairs and stays w/ the pt once pt's BAKER PASTRY leaves for the day. He tells MIH [...] sick contacts recently. Brother tells and shows [facility] he has been giving the pt OTC diabetic tussin for cough suppression and it seems to be working. She normally takes Tylenol when she is in pain or has fevers. [facility] discusses treatment plan w/ pt and her brother to include continued supportive care based on her current condition and pending the results of the COVID/flu test and any further recommendations from the [facility]. Both are amendable to the plan. [facility] swabs pt for COVID/flu and vital signs are obtained. Pt is normotensive and afebrile. Physical exam is not concerning and lung sounds are clear. COVID/flu are negative. [facility] contacts [facility] and discusses the above. [facility] agrees w/ continued supportive care w/ a recommendation for re-evaluation if she does not feel better in a few days and to seek emergency care if she gets severe cp, sob, uncontrolled n/v/d, or high fevers or seizures/ams. Pt and brother give their verbal understanding. [facility] is clear. Report completed by SHAGGY Mckeon [id number]. [facility] Lab Orders: rapid SARS CoV 2 Ag, QL IA, respiratory specimen: Performed rapid flu (A+B): Performed ..................... ..................... ..................... ..................... ..................... ..................... ............... [facility] Consulted: Shanika Blackmon ..................... ..................... ..................... ..................... ..................... ..................... ............... Disposition: Fulfilled Shanika Blackmon MD [address] [place] [address],[address], [place], [phone], PAXTON BROUSSARD 04/28/2025 21:48:22 OBGyn Episode No OBEpisode recorded.
--- OUTSIDE RECORDS SUMMARY | 2025-07-08 07:32 | XMS_ITS | Data Portability ---
Author Organization [facility], [facility] Address [address] [place] [address] Care Team Providers Care Cabbage Salter Name Role Phone HIM CCA OTHER ANALIA GARCIA Primary Care Provider [phone] Assessment Encounter Date Assessment Date Assessment LastModified by Organization Details LastModified Time 12/23/2023 12/23/2023 I provided real -time medical direction via phone for this encounter, and was available for additional phone based assistance as needed. I have reviewed and agree with the Assessment and Plan as documented by the Grinder Set Up Operator [employer]. We discussed the diagnostic uncertainty of home [...] to call 911- verbalized understanding of instruction [email or web address] Not available 12/23/2023 11:33:30 04/28/2025 04/28/2025 Evaluation in the field was performed by my check scaler colleague, as noted above, I provided real-time [...] pharmacy discussed course of illness precautions reviewed Not available 05/19/2025 21:06:14 Plan of Treatment Reminders Order Date Submit Date Provider Last Modified By Organization Details Last Modified Time Details Appointments None recorded. Lab rapid SARS CoV 2 Ag, QL IA, respiratory specimen 2024 025 [facility], [address] [place] [address], [id number] 5 21:54:19 rapid flu (A+B) 2024 025 [facility], [address] [place] [address], [id number] 21:54:20 rapid SARS CoV 2 Ag, QL IA, respiratory specimen [email or web address] [facility], [address] [place] [address], [id number] 4 11:35:44 rapid strep group A, throat [email or web address] [facility], [address] [place] [address], [id number] 4 11:35:45 rapid flu (A+B) [email or web address] [facility], [address] [place] [address], [id number] 11:35:42 Referral None recorded. Procedures None recorded. Surgeries None recorded. Imaging None recorded. Medication Orders valacyclovi r 1 gram tablet 2024 025 [facility] #[id number], [address] [place], [place], [id number], 5 05:01:02 valacyclovi r 1 gram tablet 2024 025 [facility] #59076, [address] [place], [place], [id number], 5 05:01:02 Tylenol Extra Strength 500 mg tablet 2024 025 [facility] #79852, [address] [place], [place], [id number], 5 13:15:34 acetaminoph en 500 mg tablet 2024 025 [email or web address] 7 [facility] #52732, [address], [place], [id number], 5 13:15:27 benzonatate 100 mg capsule 2023 024 [facility] #15809, [address] [address], [place], [id number], 4 11:35:55 Patient TargetsNo targets recorded. Patient InstructionsNo instructions recorded. Reason for Referral None Reported. Results Created Date Observation Date Name Description Value Unit Range Abnormal Flag Note LastModifiedBy Organization Detail LastModifiedTime 12/23/19 24 12/23/2023 rapid flu (A+B) Flu negati ve Not Available Main - [facility] ed [address] [place] [address], [id number] 12/23/2023 11:33:56 12/23/19 24 12/23/2023 rapid strep group A, throa t Strep negati ve Not Available Main - Inst ed [address] [place] [address], [id number] 12/23/2023 11:33:51 12/23/19 24 12/23/2023 rapid SARS CoV 2 Ag, QL IA, respi rator y speci men rapid SARS CoV 2 Ag, QL IA, respiratory specimen negati ve Not Available Main - [facility] ed [address] [place], [phone] 12/23/2023 11:33:38 Result Notes None recorded. Medical [...] Recorded Body temperature Body height Oxygen saturation Heart rate Body weight Respiratory rate Systolic And Diastolic Provider Name and Address Organization Details Last Updated DateTime 4 98.4 [degF] 142.24 cm 97 % 86 /min 52226.8 56 g 16 /min 132/74 mm[Hg] Not Available [employer] 4 11:15:44 Date Recorded Body weight Heart rate Body temperature Respiratory rate Oxygen saturation Body height Systolic And Diastolic Provider Name and Address Organization Details Last Updated DateTime 5 63732.2 g 93 /min 98.8 [degF] 18 /min 97 % 134.62 cm 110/68 mm[Hg] Not Available [employer] 5 20:13:15 Date Recorded Body height Body weight Body temperature Respiratory rate Oxygen saturation Heart rate Systolic And Diastolic Provider Name and Address Organization Details Last Updated DateTime 5 134.62 cm 33496.2 g 99 [degF] 18 /min 97 % 88 /min 130/90 mm[Hg] Not Available [employer] 5 13:10:58 Social History None recorded. Functional Status None recorded. Mental Status None recorded. Family History Nothing Reported. Medical History No medical history recorded. Gynecological HistoryNo gynecological history recorded. Obstetrics History GPAL:G 0 P 0 0 0 0 Past Encounters Encounter ID Performer Location Encounter Start Date Encounter Closed Date Diagnosis/Indication Diagnosis SNOMED-CT Code Diagnosis ICD10 Code Diagnosis IMO Codes Diagnosis Note [id number] Margot Crystal MD Main - [address] [address] 12/23/2023 11:15:42 12/23/2023 18:10:33 Viral upper respiratory tract infection 971521028 J06.9 Advised to stay hydrated, continue OTC cough med. May gargle with warm salt water. She requested something slightly stronger for cough. Is aware benzonatat e is not covered [id number] Shanika Blackmon MD Main-[facility] [address] [address] 04/28/2025 20:13:08 04/28/2025 22:05:31 Viral upper respiratory tract infection 583542095 J06.9 [id number] CAITLYN LAU MD [facility] [address] [place] [address] 05/14/2025 13:10:50 05/20/2025 18:56:23 Herpes zoster 3096013 B02.9 [id number] Health Concerns Section Related Observation LastModified by Organization Detai ls LastModified Time None Recorded Concern Status LastModified by Organization Details LastModified Time None Recorded Advance Directives Directive None Recorded Payers Insurance Date Sequence Insurance Name Policy Number Policy López Covered Member ID López Member ID Guarantor Name 05/20/2025 1 [facility] - DOS ON OR AFTER 2022 - DUAL ELIGIBLE - LONG-TERM OPTIONS AND ONE CARE (MEDICARE REPLACEMENT/ADV ANTAGE - HMO) Shari Delgadillo [id number] Shari Delgadillo Notes Date Note Type Note Provider Name and Address Organization Details Recorded Time 12/23/2023 text/html ROS as noted in the HPI CRC Nurse Triage Notes (Waldmear Gonzales): Chief Complaints: Shortness of Breath/Dyspnea Allergies: Unknown Comments: [employer] Processing [employer] Manager verified the member's name//address and phone number. [...] itchiness to her right ear no discharge Grinder Set Up [employer] POC Test Results from Frank Gray - ALS Rapid COVID antigen (1) [12:24] COVID: - Rapid influenza antigen (1) [12:24] Flu: - Rapid strep test (1) [12:24] Strep: - ..................... ..................... ..................... ..................... ..................... ..................... ............... Grinder Set Up Operator [employer] Note From Frank Gray: [facility] visit for female patient with cough. Pt presents at home on couch in company of brother/HCP and DATA WAREHOUSE ADMINISTRATOR. Pt reports 3 days of cough with some chest congestion. Cough largely dry and unproductive. Pt also reporting some throat pain with cough and itchiness in right ear. No fevers reported. Denies CP/SOB. Pt well appearing. V/S taken and WNL. Pt afebrile. Pt swabbed for flu covid and strep, all negative. Lung sounds clear bilaterally. Abdomen soft and non tender. Consulted with [facility] Dr. Crystal who prescribed benzonatate for cough. Reviewed red flags for ED. Pt education provided. ..................... ..................... ..................... ..................... ..................... ..................... ............... Disposition: Fulfilled Margot Crystal MD [address] [place] [address],[address], [place], [address], [employer] (NOOM) 12/23/2023 12:26:16 04/28/2025 text/html ROS as noted [...] Common Cold PMH: Other PMH Reviewed at 04/28/202539 Allergies Reviewed at 04/28/2025:39 Comments: Other PMH: [...] signs of when to seek emergency care. Grinder Set Up Operator [employer] Organization Information for Jb [employer] Business Legal Name: [employer]. Address: [address] [place] [address], Medical Field Representative: Alfred Mueller MD CLIA No.: [id number] Gr[employer] Set Up [employer] POC Test Results from Jb Mckeon Rapid COVID antigen (19:59:25) COVID: - Attachments uploaded as part of this test result can be found under Documents section. Rapid influenza antigen (19:59:25) Flu: - ..................... ..................... ..................... ..................... ..................... ..................... ............... Grinder Set Up Operator [employer] Note From Jb Mckeon: SC6 responds to [...] fully. She makes eye contact and greets [facility]. Her brother is on scene as well. He lives downstairs and stays w/ the pt once pt's DATA WAREHOUSE ADMINISTRATOR leaves for the day. He tells MIH [...] test and any further recommendations from the [facility]. Both are amendable to the plan. [facility] swabs pt for COVID/flu and vital signs are obtained. Pt is normotensive and afebrile. Physical exam is not concerning and lung sounds are clear. COVID/flu are negative. [facility] contacts [facility] and discusses the above. [facility] agrees w/ continued supportive care w/ a recommendation for re-evaluation if she does not feel better in a few days and to seek emergency care if she gets severe cp, sob, uncontrolled n/v/d, or high fevers or seizures/ams. Pt and brother give their verbal understanding. [facility] is clear. Report completed by SHAGGY Mckeon [id number]. [facility] Lab Orders: rapid SARS CoV 2 Ag, QL IA, respiratory specimen: Performed rapid flu (A+B): Performed ..................... ..................... ..................... ..................... ..................... ..................... ............... [facility] Consulted: Shanika Blackmon ..................... ..................... ..................... ..................... ..................... ..................... ............... Disposition: Fulfilled Shanika Blackmon MD [address] [place] [address],[address], [place], [phone] [employer] 04/28/2025 21:48:22 05/14/2025 text/html CRC Nurse Triage Notes (Esperanza Bhandari): Reason For Request: Patient has a Red rash developing , random parts of body, -Dental procedure done thu, -and has pres meds. Denies: Rhodes Flash, circumferential rhodes Rhodes reported with black tissue to the area Open skin area after a fall with uncontrolled bleeding Abscess/infection with streaking noted, presence of fever or without Chief Complaints: Rash PMH: Diabetes Mellitus Type 2, Hypertension, Hyperlipidemia PMH Reviewed at 05/14/2025 - :59 Allergies Reviewed at 05/14/2025 - :59 Comments: 59 y.o female complains of Rash [...] ..................... ..................... ..................... ..................... ..................... ..................... ............... Grinder Set Up Operator [employer] Note From Jb Mckeon: SC6 responds to the listed address for a 59 yof w/ c/c of rash. Upon arrival on scene, pt is found seated on the sofa in her home awaiting [facility] arrival. She smiles and laughs on [facility] entry. NAD is present, no stridor or sonorous respirations, facial droop, one-sided weakness, or major bleeding are observed. Pt has cerebral palsy and arm, hand, and leg contractures are at pt's baseline and she is able to move them normally. Pt's brother tells [facility] her DATA WAREHOUSE ADMINISTRATOR noticed a rash on pt's stomach, lower back, and under the R gluteal fold while she was bathing the pt today. Pt had a recent dental procedure and was placed on amoxicillin and a chlorhexidine swish and spit mouth rinse post procedure. ABX have been held today until [facility] evaluation could be completed. Pt tells VERONICA she felt weird in the places where the rash is today, but is unable to visualize the spots on her own and didn't know a rash was there. She is able to ambulate, w/ assistance from her brother, at her baseline, to the bathroom for [facility] to observe the rash. She is then able to ambulate back to the sofa and sit as she was. She denies any fevers/chills, painful itching sensation, or tingling in the area today. [facility] informs pt to wash her hands well after showing MIRaj the rash and brother to wear a mask and wash his hands as well. Both are compliant. Ddx: Shingles, abx reaction, dermatitis [facility] visually observes the affected area and obtains photos for [facility] inspection. [facility] notes blotchy rash spots w/ clear fluid-filled vesicles on pt's R lumbar and R flank region. Nothing is noted below the gluteal muscle on the posterior R thigh and no other areas of said rash are observed. [facility] obtains vital signs and pt is normotensive, not hypoxic, and has a slight bump in temp at 99.0. Physical exam is limited to the rash and lack of other physical complaints from the pt today. [facility] contacts [facility] and discusses the above. [facility] agrees w/ shingles observation and prescribes valacyclovir PO BID for pt and Tylenol for pain and fever and calls in 7-day course to pt's pharmacy. After confirming pt has NKDA, [facility] administers 1G valacyclovir x 1 tablet and 500mg x2 tablets Tylenol PO for pt and she takes all meds in the presence of [facility]. [facility] informs pt to keep the rash [...] seek emergency care and they both thank [facility] for coming. [facility] is clear. Report completed by SHAGGY Mckeon [id number]. [facility] Medication Orders: valacyclovir 1 gram tablet: Administered acetaminophen 500 mg tablet: Administered ..................... ..................... ..................... ..................... ..................... ..................... ............... [facility] Consulted: Caitlyn Lau ..................... ..................... ..................... ..................... ..................... ..................... ............... Disposition: Fulfilled CAITLYN LAU MD [address] [place] [address],[address] [facility], [place], [address], [employer] 05/19/2025 21:06:20 OBGyn Episode No OBEpisode recorded.
--- OUTSIDE RECORDS SUMMARY | 2025-07-08 07:32 | XMS_ITS | Continuity of Care Document ---
Author Organization [employer]! [facility], [facility] Address [address] [place] [address] Care Team Providers Care Model Home Sales Greeter Name Role Phone HIM CCA OTHER POANALIA Primary Care Provider Assessment Encounter Date Assessment Date Assessment LastModified by Organization Details LastModified Time 05/14/2025 05/14/2025 59 yo F with 2 days of new painful, blistering rash to R flank area. No hx shingles. VS wnl. Pictures and hx appear c/w herpes zoster. Will give valacyclovir 1g now in the home rx sent for valacyclovir 1g TID x 7 days to pharmacy rx tylenol for pain sent to pharmacy discussed course of illness precautions reviewed remedios Not available 05/19/2025 21:06:14 Plan of Treatment Reminders Order Date Submit Date Provider Last Modified By Organization Details Last Modified Time Details Appointments None recorded. Lab None recorded. Referral None recorded. Procedures None recorded. Surgeries None recorded. Imaging None recorded. Medication Orders valacyclovi r 1 gram tablet 2024 025 [facility], [address] [place], [place], [id number], 05:01:02 valacyclovi r 1 gram tablet 2024 025 [facility] #70576, [address] [place], [place], [id number], 05:01:02 Tylenol Extra Strength 500 mg tablet 2024 025 [facility] #19114, [address] [place], [place], [id number], 13:15:34 acetaminoph en 500 mg tablet 2024 025 [email or web address] 7 [facility] #99154, [address] [place], [place], [id number], 13:15:27 Patient TargetsNo targets recorded. Patient InstructionsNo instructions [...] No t Available Vitals Date Recorded Body height Body weight Body temperature Respiratory rate Oxygen saturation Heart rate Systolic And Diastolic Provider Name and Address Organization Details Last Updated DateTime 134.62 cm 47512.2 g 99 [degF] 18 /min 97 % 88 /min 130/90 mm[Hg] Not Available [employer] - production 13:10:58 Social History None recorded. Functional Status None recorded. Mental Status None recorded. Family History Nothing Reported. Medical History No medical history recorded. Gynecological HistoryNo gynecological history recorded. Obstetrics History GPAL:G 0 P 0 0 0 0 Past Encounters Encounter ID Performer Location Encounter Start Date Encounter Closed Date Diagnosis/Indication Diagnosis SNOMED-CT Code Diagnosis ICD10 Code Diagnosis IMO Codes Diagnosis Note [id number] Shanika Blackmon MD [facility] [address] [address] 04/28/2025 20:13:08 04/28/2025 22:05:31 Viral upper respiratory tract infection 752333539 J06.9 [id number] CAITLYN LAU MD [facility] [address] [address] 05/14/2025 13:10:50 05/20/2025 18:56:23 Herpes zoster 9881382 B02.9 [id number] Health Concerns Section Related Observation LastModified by Organization Detai ls LastModified Time None Recorded Concern Status LastModified by Organization Details LastModified Time None Recorded Payers Encounter Date Sequence Insurance Name Policy Number Policy López Covered Member ID López Member ID Guarantor Name 05/14/2025 1 [facility] - DOS ON OR AFTER 2022 - DUAL ELIGIBLE - HALFWAY OPTIONS AND ONE CARE (MEDICARE REPLACEMENT/ADV ANTAGE - HMO) Shari Delgadillo [id number] Shari Delgadillo Notes Date Note Type Note Provider Name and Address Organization Details Recorded Time 05/14/2025 text/html CRC Nurse Triage Notes (Elisabet Esperanza): Reason For Request: Patient has a Red [...] ..................... ..................... ..................... ..................... ..................... ..................... ............... Dry Charge Process Attendant Note From Jb Mckeon: SC6 responds to the listed address for a 59 yof w/ c/c of rash. Upon arrival on scene, pt is found seated on the sofa in her home awaiting [facility] arrival. She smiles and laughs on [facility] entry. NAD is present, no stridor or sonorous respirations, facial droop, one-sided weakness, or major bleeding are observed. Pt has cerebral palsy and arm, hand, and leg contractures are at pt's baseline and she is able to move them normally. Pt's brother tells [facility] her STORE SALES LEADER noticed a rash on pt's stomach, lower back, and under the R gluteal fold while she was bathing the pt today. Pt had a recent dental procedure and was placed on amoxicillin and a chlorhexidine swish and spit mouth rinse post procedure. ABX have been held today until [facility] evaluation could be completed. Pt tells [facility] she felt weird in the places where the rash is today, but is unable to visualize the spots on her own and didn't know a rash was there. She is able to ambulate, w/ assistance from her brother, at her baseline, to the bathroom for [facility] to observe the rash. She is then able to ambulate back to the sofa and sit as she was. She denies any fevers/chills, painful itching sensation, or tingling in the area today. [facility] informs pt to wash her hands well after showing MIH the rash and brother to wear a mask and wash his hands as well. Both are compliant. Ddx: Shingles, abx reaction, dermatitis [facility] visually observes the affected area and obtains photos for [facility] inspection. [facility] notes blotchy rash spots w/ clear fluid-filled vesicles on pt's R lumbar and R flank region. Nothing is noted below the gluteal muscle on the posterior R thigh and no other areas of said rash are observed. [facility] obtains vital signs and pt is normotensive, not hypoxic, and has a slight bump in temp at 99.0. Physical exam is limited to the rash and lack of other physical complaints from the pt today. [facility] contacts [facility] and discusses the above. [facility] agrees w/ shingles observation and prescribes valacyclovir PO BID for pt and Tylenol for pain and fever and calls in 7-day course to pt's pharmacy. After confirming pt has NKDA, [facility] administers 1G valacyclovir x 1 tablet and 500mg x2 tablets Tylenol PO for pt and she takes all meds in the presence of [facility]. [facility] informs pt to keep the rash clean [...] seek emergency care and they both thank [facility] for coming. [facility] is clear. Report completed by SHAGGY Mckeon [id number]. [facility] Medication Orders: valacyclovir 1 gram tablet: Administered acetaminophen 500 mg tablet: Administered ..................... ..................... ..................... ..................... ..................... ..................... ............... [facility] Consulted: Caitlyn Lau ..................... ..................... ..................... ..................... ..................... ..................... ............... Disposition: Nolberto LAU MD [address] [facility],[address], [place], [address], [employer] 05/19/2025 21:06:20 OBGyn Episode No OBEpisode recorded.
[2025-07-08 08:03] LABS: MANUAL DIFF FLAG NO
[2025-07-08 09:10] LABS: Hematocrit 41.8 % (37.0-47.0); Hemoglobin 13.6 g/dl (12.0-16.0); Imm Gran Abs Auto 0.01 X10*3/uL (0.00-0.03); Imm Gran Pct Auto 0.2 % (0.0-0.4); Lymphocytes Absolute Auto 1.4 X10*3/uL (1.2-4.9); Mean Corpuscular HGB Conc 32.5 g/dl (31.0-35.0); Mean Corpuscular Hemoglobin 29.0 pg (27.0-33.0); Mean Corpuscular Volume 89.1 fL (80.0-98.0); NRBC Abs Auto 0.000 X10*3/uL (0.0-0.012); NRBC Pct Auto 0.0 /100WBC (0.0-0.2); Platelet Count 337 X10*3/uL (160-400); Red Blood Count 4.69 X10*6/uL (4.20-5.50); White Blood Count 4.6 X10*3/uL (4.8-10.8)
[2025-07-08 10:14] LABS: Alanine Aminotransferase 18 U/L (0-31); Albumin Level 4.6 g/dL (3.5-5.0); Alkaline Phosphatase 64 U/L (39-117); Anion Gap 12 (12-20); Aspartate Amino Transferase 20 U/L (5-31); Blood Urea Nitrogen 22 mg/dL (9-16); Calcium 9.5 mg/dL (8.4-10.2); Carbon Dioxide 27 mmol/L (22-29); Chloride 109 mmol/L (96-108); Cholesterol 182 mg/dL (<200); Estimated Glomerular Filt Rate > 60; HDL Cholesterol 52 mg/dL (>40); Potassium 3.9 mmol/L (3.3-5.1); Sodium 144 mmol/L (135-145); Total Protein 7.4 g/dL (6.5-8.0); Triglycerides 75 mg/dL (<150)
[2025-07-08 10:20] LABS: Free T4 (Free Thyroxine) 1.05 ng/dL (0.71-1.85); Thyroid Stimulating Hormone 0.45 uIU/mL (0.32-4.0)
[2025-07-08 10:37] LABS: Folate 14.2 ng/mL (> or = 4.0); Vitamin B12 877 pg/mL (200-900)
== END 2025-07-08 07:30 | disposition home or self-care (01) ==
LOC: HO.LAB 07:29
PROVIDERS: PCP Internal Medicine; Visit Provider Internal Medicine
DX: E11.65 Type 2 diabetes mellitus with hyperglycemia (principal); E78.00 Pure hypercholesterolemia, unspecified; Z13.21 Encounter for screening for nutritional disorder
CPT/HCPCS: 36415; 80053; 80061; 82306; 82607; 82746; 83036; 84439; 84443; 85025

== ENCOUNTER 2025-07-10 09:50 | Outpatient (REF) | payer OTHER, SELFPAY ==
[2025-07-10 10:41] LABS: Appearance Urine Clear; Glucose Urine UA >=1000 mg/dL (Negative); PH 5.5 (5.0-9.0); Specific Gravity - Urine 1.020 (1.005-1.025); UMIC TRIGGER UACC YES
[2025-07-10 10:44] LABS: UACC Culture Trigger YES
[2025-07-13 03:43] LABS: TS Negative Control Passed; TS Panel A 0; TS Panel B 0; TS Positive Control Passed; TSpotTB Negative (Negative)
== END 2025-07-10 09:51 | disposition home or self-care (01) ==
LOC: HO.LAB 09:50
PROVIDERS: PCP Internal Medicine; Visit Provider Internal Medicine
DX: E11.65 Type 2 diabetes mellitus with hyperglycemia (principal); R30.0 Dysuria; R63.4 Abnormal weight loss
CPT/HCPCS: 36415; 81001; 82043; 82570; 86481; 87086; 87147

== ENCOUNTER 2025-08-02 09:01 | Outpatient (AMB) | payer OTHER, SELFPAY ==
--- OUTSIDE RECORDS SUMMARY | 2025-08-02 09:12 | XMS_ITS | Patient Health Record ---
Author Organization [facility] Address [address] [facility] [facility] [place] [address] Care Team Providers Care Rn Eligibility Name Role Phone Uri Salazar Primary Care Provider Bayron Caruso Unavailable [phone] Allergies No Known Allergies Results Component Value Reference Range Notes HEMOGLOBIN A1C (GLYCOHEMOGLO BIN) Reviewed date:04/27/2025 01:36:16 [...] Problem Acquired hammer toe of right foot (1411041568921 105) Other hammer toe(s) (acquired), right foot (M20.41) Active confirmed Problem Acquired hammer toe of left foot (0210194790091 103) Other hammer toe(s) (acquired), left foot (M20.42) Active confirmed Problem Type 2 diabetes mellitus with peripheral angiopathy (298567044) Type 2 diabetes mellitus with diabetic peripheral angiopathy without gangrene (E11.51) Active confirmed Q7(A), Q8(2B), Q9(1B,2C) Vital Signs Blood pressure diastolic 70 mm Hg 11/03/2024 Height 4ft 5 in in 04/27/2025 Blood pressure systolic 120 mm Hg 11/03/2024 Weight 92 lbs 04/27/2025 BMI 23.02 kg/m2 04/27/2025 Procedures Procedure Date Ordered Date Performed Result Body Sit e 90595-UEQUICT NAIL, 1-5 11/03/2024 N/A 03824-YDFR SKIN LESIONS, OVER 4 11/03/2024 N/A P6109-HWGIRYCA DYSTROPHIC NAILS ANY # 11/03/2024 N/A 31407-SHUUEGI NAIL, 1-5 02/01/2025 N/A 98702-QBPM SKIN LESIONS, OVER 4 02/01/2025 N/A I3886-TCOEOFPO DYSTROPHIC NAILS ANY # 02/01/2025 N/A 06232-KTFJQNT NAIL, 1-5 04/27/2025 N/A 09539-YHVP SKIN LESIONS, OVER 4 04/27/2025 N/A Z9666-AHHJAAOL DYSTROPHIC NAILS ANY # 04/27/2025 N/A Encounters Encounter Location Date Provider Diagnosis [facility] [address] [address] 11/03/2024 Bayron Jim Type 2 diabetes mellitus with diabetic peripheral angiopathy without gangrene E11.51 ; Tinea unguium B35.1 ; Pain in right toe(s) M79.674 ; Pain in left toe(s) M79.675 ; Other hammer toe(s) (acquired), right foot M20.41 and Other hammer toe(s) (acquired), left foot M20.[address] [address] 02/01/2025 Bayron Doeunier Tinea unguium B35.1 ; Type 2 diabetes mellitus with diabetic peripheral angiopathy without gangrene E11.51 ; Pain in right toe(s) M79.674 and Pain in left toe(s) M79.[address] [address] 04/27/2025 Bayron Hernán Tinea unguium B35.1 ; Type 2 diabetes mellitus with diabetic peripheral angiopathy without gangrene E11.51 ; Pain in right toe(s) M79.674 ; Pain in left toe(s) M79.675 ; Other hammer toe(s) (acquired), right foot M20.41 and Other hammer toe(s) (acquired), left foot M20.42 Assessments Encounter Date Diagnosis (ICD Code) Assessment Notes Treatment Notes Treatment Clinical Notes Section Notes 11/03/2024 Tinea unguium (ICD-10 - B35.1) 11/03/2024 [...] Treatment Pending Test Test Name Order Date 21547-SZIOLHB NAIL, 1-08/01/2024 35088-LCELMZQ NAIL, 1-5 11/03/2024 97822-KSIEXCR NAIL, 1-5 02/01/2025 51619-FAJCIES NAIL, 1-5 04/27/2025 78170-TYLZ SKIN LESIONS, OVER 4 04/27/20 25 28615-MLGH SKIN LESIONS, OVER 4 02/02/20 25 49420-LPJS SKIN LESIONS, OVER 4 11/04/19 09439-YJWG SKIN LESIONS, OVER 4 08/01/20 24 N8140-AXNJWUBH DYSTROPHIC NAILS ANY # A7773-JEUWTPBI DYSTROPHIC NAILS ANY # O0852-BWAIIWCX DYSTROPHIC NAILS ANY # A9096-XTGCOCAM DYSTROPHIC NAILS ANY # Next Appt Details Provider Name:Bayron Jim , 08/14/2025 02:15:00 PM, [address] [facility] [address] [facility], [address], [place], [address], Insurance Providers Payer Name Payer Address Payer Phone Subscriber Number Group Number Insured Name Patient Relationship to Insured Coverage Start Date Coverage End Date [facility] [employer] Claims [address] [place] [address] [id number] Shari Delgadillo Self - patient is the insured Medical (General) History Medical History History ICD Code covid-19 Diabetic High Blood Pressure Cerebral palsy Hypercholesterolemia
[2025-08-02 09:19] VITALS: BP 124/68; PULSE 92; O2SAT 98; BMI 25.2
--- NOTE | 2025-08-02 09:19 | A.OFFPC_ITS ---
Vital Signs 08/02/25 09:19 Height 4 ft 5 in Weight 100 lb 8.493 oz BMI 25.2 BP 124/68 Blood Pressure Location Rt brachial Position Sitting Pulse 92 Pulse Source Pulse Oximeter Pulse Oximetry (%) 98 Oxygen Delivery Method Room Air Intake Visit Reasons: ANNUAL EXAM- A1C needed Allergies No Known Allergies Allergy (Verified 08/02/25 09:20) Medication List - Last Reconciled 08/02/25 by Uri Salazar MD amoxicillin 2,000 mg PO 1 hour before procedure; blood sugar diagnostic (FreeStyle Lite Strips) As directed TID for blood glucose testing blood-glucose meter (FreeStyle Lite Meter kit) As directed cholecalciferol (vitamin D3) 25 mcg PO DAILY clotrimazole 1% 1 appl topical BID 4 weeks compress.stocking,knee,reg,med As directed 20-30 mm HG cyanocobalamin (vitamin B-12) 1,000 mcg PO DAILY [Diabetic Shoes with inserts As directed] empagliflozin (Jardiance) 10 mg PO DAILY folic acid 1 mg PO DAILY lancets (FreeStyle Lancets) 28 gauge topical TID 90 days lisinopril 10 mg PO DAILY miconazole nitrate 2% (Zeasorb AF) 1 appl topical DAILY simvastatin 40 mg PO DAILY Tobacco use date assessed: 05/22/25 Dental Screening Dental Screen Date: 05/22/25 HPI HPI Comments History of Present Illness Details History of Present Illness The patient is a 60 year old female with a history of cerebral palsy, diabetes, hypertension, hypercholesterolemia, and varus deformity of the knee, presenting for a physical exam. She was last seen in June 2025. Recent blood work from July 08 revealed a mild acute leukopenia with a normal blood count and platelet count. Her electrolytes and renal function were normal, with a blood sugar of 112 and a hemoglobin A1c of 6.8. Her liver function tests were normal, though her LDL cholesterol was elevated at 150, an increase from 85 the previous year. B12, vitamin D, folic acid, and thyroid levels were all within normal limits. For health maintenance, her Cologuard was negative in October 2022, and her mammogram is up to date as of October 2024. Her current medications include Jardiance 10 mg daily for diabetes, lisinopril 10 mg daily for hypertension, and simvastatin 40 mg daily for hypercholesterolemia. Health Maintenance - Cologuard was negative in October 2022. - Mammogram is up to date, completed in October 2024. - Recent lab work from July 08 show ed a hemoglobin A1c of 6.8 and an LDL cholesterol of 150. Social History Results - Labs (July 08): - CBC: Mild acute leukopenia with normal blood count and normal platelet count. - CMP: Normal electrolytes and renal fun ction. - Liver function tests: Normal. - Blood sugar: 112. - Hemoglobin A1c: 6.8. - Lipid panel: LDL elevated at 150. - B12, vitamin D, folic acid, and thyroi d function tests are all within normal limits. - Tests and Diagnostics: - Cologuard: Negative (October 2022). [facility] Medical History Impacted cerumen of both ears Annual physical exam Encounter for annual routine gynecological examination Colon cancer screening Avulsion fracture of metatarsal bone of left foot with routine healing Injury of right great toe Cerebral palsy Hypercholesterolemia Rosacea Hypertension Vitamin D deficiency Peripheral vascular disease Type 2 diabetes mellitus with hyperglycemia Surgical History History of brain shunt Family History Father Medical history unknown Mother Brain cancer Diabetes Hypertension Paternal Uncle Cancer Social History Housing: House Alcohol intake: never Patient Tobacco Use Status: Never used Tobacco Tobacco use type: Cigarette e-Cigarette/Vaping Use: Never Used Second Hand Smoke Exposure: No service: No Current occupational status: disabled Cognitive needs: No Hearing needs: No Vision needs: No Questionnaire Thrive Questionnaire Date Thrive assessed: 02/14/25 I am a: Patient What is your living situation today?: I have a steady place to live Within the past 12 months, did the food you bought not last and you didn't have the money to get more?: Never true Within the past 12 months, did you worry whether your food would run out before you got money to buy more?: Never true Do you have trouble paying for medicines?: No Do you have trouble getting transportation to medical appointments?: No Do you have trouble paying your heating and electricity bill?: No Do you have trouble taking care of your child, family member or friend?: I choose not to answer this question Do you have trouble with day-to-day activities such as bathing, preparing meals, shopping, managing finances, etc.?: I choose not to answer this question Are you currently unemployed and looking for a job?: I choose not to answer this question Are you interested in more education?: I choose not to answer this question Currently or been in a relationship where the following occur: No concerns reported THRIVE Score: 0 MATEO-7 AMB Questionnaire MATEO-7 Date MATEO - 7 assessed: 10/28/24 Source: Developed by Drs. Jori Elias, Juani Noriega, Jagdish Cardenas and colleagues, with an educational rand from [employer]. Review of Systems Narrative Review of Systems Const Denies poor appetite and Denies weakness Eyes Denies no additional complaints ENT Reports Normal hearing present, Denies dizziness, Denies nasal congestion, Denies tinnitus and Denies sore throat Card Denies chest pain, Denies syncope, Denies rapid heart rate and Denies dyspnea Resp Denies cough and Denies dyspnea GI Denies change in stool character, Reports constipation, Denies diarrhea, Denies nausea and Denies vomiting Denies urinary frequency, Denies difficulty voiding and Denies dysuria Neuro Reports Normal hearing present, Denies confusion, Denies dizziness, Denies syncope and Denies weakness Psych Denies confusion Physical exam (Primary Care) Vital Signs: Last Vital Signs Pulse 92 08/02/25 09:19 BP 124/68 08/02/25 09:19 Pulse Ox 98 08/02/25 09:19 Oxygen Delivery Method Room Air 08/02/25 09:19 BMI result Body Mass Index 25.2 Tobacco/Smoking Status: Tobacco use Status Tobacco use date assessed 05/22/25 08/02/25 09:25 Patient Tobacco Use Status Never used Tobacco 08/02/25 09:25 Tobacco use type Cigarette 08/02/25 09:25 e-Cigarette/Vaping Use Never Used 08/02/25 09:25 Thrive Assessment: Date of Thrive Assessment Date Thrive assessed 02/14/25 08/02/25 09:25 Currently or been in a relationship where the following occur: No concerns reported Narrative Physical Exam General: Cooperative, healthy appearing, comfortable, no acute distress and well developed Orientation: Patient oriented x3 Limitations: No limitations Head: Normal to inspection Ears: Hearing grossly normal bilaterally Nose: Normal external nose present Face and sinus: Normal facial exam Eyes: Appearance normal, both eyes and all related structures Neck: Normal visual inspection and Yes full ROM Respiratory: Normal respiratory effort and able to speak in complete sentences. Clear to auscultation bilaterally Cardiovascular: Regular rate and rhythm. Normal S1 and S2 GI: Normal to inspection. Soft to palpation and nontender Skin: No rashes or lesions noted Neuro: Patient oriented x3 Extremities: Varus deformity of the knee noted Const General: alert and awake; No confusion Orientation/consciousness: No confusion HENMT Head: Yes normocephalic Ears: external ears normal and TM's normal bilaterally Face and sinus: Yes normal facial exam Mouth: moist mucous membranes Throat: Yes tonsils normal Eyes Conjunctivae: conjunctivae normal Pupils: Equal, round and reactive pupils present and Pupil accommodation reflex normal Direct Ophthalmoscopy: normal light reflex Neck Neck: No lymphadenopathy Thyroid: Thyroid normal Chest Chest palpation & inspection: normal inspection of the chest Resp Effort & Inspection: normal respiratory effort and no audible wheezes Auscultation: clear to auscultation bilaterally, no crackles, no wheezes and lung sounds not diminished Cardio Rate: regular rate Rhythm: regular rhythm Peripheral pulses: radial pulses present and dorsalis pedis present GI Palpation (GI): no masses Auscultation: normal bowel sounds and normoactive bowel sounds Rectal Exam - Female: deferred Skin General skin exam: no rashes or lesions noted Rashes: no rashes Neuro General: deep tendon reflexes 2+ bilaterally and No confusion Cranial nerves: Yes Equal, round and reactive pupils present, Yes Midline tongue present, Yes Normal hearing present and Yes Ability to bilaterally elevate shoulders present Cognition (Neuro): normal cognition Gait exam (Neuro): Normal gait present Motor exam (neuro): 5/5 motor strength present throughout Deep tendon reflexes (DTR's): Right brachioradialis reflex intensity grade: 2+, Left brachioradialis reflex intensity grade: 2+, Right patellar reflex intensity grade: 2+ and Left patellar reflex intensity grade: 2+ Extrem General: No edema Coding Level of Care Code Est Pt Prev Care 40-64y(15142) Diagnoses Annual physical exam Z00.00 Type 2 diabetes mellitus with hyperglycemia, without long-term current use of insulin E11.65 Diabetes mellitus terminologist insulin use: without terminologist use Essential hypertension I10 Hypertension type: essential hypertension Hypercholesterolemia E78.00 Assessment & Plan Assessment & Plan (1) Annual physical exam: Code(s): Z00.00 - Encounter for general adult medical examination without abnormal findings Category: Medical Plan: Patient is advised to eat healthy, keep well hydrated, keep active and have adequate sleep. (2) Type 2 diabetes mellitus with hyperglycemia: Comment: Dr. Romero Code(s): E11.65 - Type 2 diabetes mellitus with hyperglycemia Category: Medical Qualifiers: Diabetes mellitus terminologist insulin use: without terminologist use Qualified Code(s): E11.65 - Type 2 diabetes mellitus with hyperglycemia Plan: Decrease the amount of carbohydrate intake, pasta, bread, rice and potatoes are all sugar and that is aside from all the sweet stuff, remember that fruits are good but they are Sweet also. Hemoglobin A1c goal of less than 6.5. Patient is on Jardiance 10 mg once a day (3) Hypertension: Code(s): I10 - Essential (primary) hypertension Category: Medical Qualifiers: Hypertension type: essential hypertension Qualified Code(s): I10 - Essential (primary) hypertension Plan: Continue with blood pressure medication. Decrease salt intake and exercise continue with lisinopril 10 mg once a day (4) Hypercholesterolemia: Code(s): E78.00 - Pure hypercholesterolemia, unspecified Category: Medical Plan: Avoid fried foods, chicken skin, eggs, butter margarine, pastries and meat. Be it pork or beef they have a lot of cholesterol LDL goal of less than 100 and triglyceride of less than 150 patient is on simvastatin 40 mg once a day Plan Plan Patient was informed and verbally consented to the use of an ambient scribe for clinic note documentation during this visit. 1. Diabetes Mellitus The patient's hemoglobin A1c is 6.8, which is above the goal of less than 6.5. She will continue taking Jardiance 10 mg once a day. 2. Hypertension Blood pressure is noted to be at a plateau. The plan is to continue lisinopril 10 mg once a day. 3. Hypercholesterolemia The LDL goal is less than 100 and the triglyceride goal is less than 150. The patient will continue simvastatin 40 mg once a day. 4. Wellness Continue current management for chronic conditions. Noted that Cologuard and mammogram are up to date. Discussion Notes I reviewed the patient's recent lab results from July. We discussed that her hemoglobin A1c is 6.8, which is above the goal of less than 6.5, and the plan is to continue with Jardiance 10 mg daily. For blood pressure management, we will continue lisinopril 10 mg daily as her readings have plateaued. Regarding her cholesterol, her LDL is elevated at 150, which is above the goal of less than 100, and she will continue on simvastatin 40 mg daily. I also noted her mild acute leukopenia on recent blood work, as well as her up-to-date Cologuard and mammogram screenings. Patient Instructions - Continue taking Jardiance 10 mg once a day for your diabetes. - Continue taking lisinopril 10 mg once a day for your blood pressure. - Continue taking simvastatin 40 mg once a day for your high cholesterol. - We have reviewed your recent blood work and will continue to monitor your conditions. - Your colon cancer screening (Cologuard) and breast cancer screening (mammogram) are up to date. Orders: Orders Hemoglobin A1c 3 Months E11.65 - Type 2 diabetes mellitus with hyperglycemia Lipid Panel 3 Months E11.65 - Type 2 diabetes mellitus with hyperglycemia, E78.00 - Pure hypercholesterolemia, unspecified Comprehensive Met. Panel 3 Months E11.65 - Type 2 diabetes mellitus with hyperglycemia Complete Blood Count Auto Diff 3 Months E11.65 - Type 2 diabetes mellitus with hyperglycemia Medications: Refilled blood sugar diagnostic (FreeStyle Lite Strips) As directed TID for blood glucose testing 100 ea 12RF E11.65 - Type 2 diabetes mellitus with hyperglycemia blood-glucose meter (FreeStyle Lite Meter kit) As directed 1 ea 0RF E11.65 - Type 2 diabetes mellitus with hyperglycemia lancets (FreeStyle Lancets) 28 gauge topical TID 300 ea 3RF 90 days E11.65 - Type 2 diabetes mellitus with hyperglycemia
== END 2025-08-02 10:09 | disposition home or self-care (01) ==
LOC: HO.HMCH 09:02
PROVIDERS: PCP Internal Medicine; Visit Provider Internal Medicine
DX: Z00.00 Encounter for general adult medical examination without abnormal findings (principal); E11.65 Type 2 diabetes mellitus with hyperglycemia; I10 Essential (primary) hypertension; E78.00 Pure hypercholesterolemia, unspecified

== ENCOUNTER → 2025-08-02 09:01 | Outpatient (BNVA) | payer OTHER, SELFPAY | PROVIDERS: PCP Internal Medicine; Visit Provider Internal Medicine | DX: Z00.00 Encounter for general adult medical examination without abnormal findings (principal); E11.65 Type 2 diabetes mellitus with hyperglycemia; I10 Essential (primary) hypertension; E78.00 Pure hypercholesterolemia, unspecified | CPT/HCPCS: 99396 ==